=== PATIENT | male | born 1945 | race Caucasian/White ===

== ENCOUNTER 2016-11-11 13:13 | Inpatient (IN) | payer MEDICARE, MEDICAID ==
[~2016-11-11] VITALS: Ht 172.7 cm; Wt 65.9 kg
[~2016-11-11 13:13] MED LIST: DOXY100T PO; GLYB1TAB51; METF-324
[2016-11-11 13:33] VITALS: BP 157/82; PULSE 97; RESP 18; TEMP 98.1; O2SAT 97
--- NOTE | 2016-11-11 13:37 | PD ---
HPI Chief Complaint: sob Time Seen by Provider: 13:23 Travel History International Travel<30 days: No Contact w/Intl Traveler<30days: No History of Present Illness HPI Patient is a 71-year-old male with history of diabetes currently taking metformin and glipizide, who presents to emergency room with EMS from [facility] urgent care for evaluation of possible pneumonia and hyperglycemia. Patient reports that for the past 1.5 weeks, he has not been feeling well. Reports that he has had a productive cough, congestion, wheezing, fevers and reports that he has been feeling overall weak. Patient reports that he is a diabetic, reports that he has not been taking his medications as he ran out of his scripts. Patient was told that he had to follow-up with his primary care doctor for repeat blood work prior to having his prescriptions renewed, reports that he has not taken his glipizide or metformin for the past 7 days. Patient denies any recent travels, denies any sick contacts. Patient reports that he went to the urgent care center today and his heart rate was noted to be 153, patient was sent to the emergency room via a EVAC for treatment of suspected pneumonia. As per patient's blood sugar, EMS reports that patient's blood sugar was "too high to result" on their glucometer. Patient reports that he does not check his glucometer normally PFS Past Medical History Diabetes: Yes Diminished Hearing: No Diverticulitis: Yes Kidney Stones: Yes Past Surgical History Abdominal Surgery: Yes (colectomy) Social History Alcohol Use: No Tobacco Use: No Substance Use: No Allergies-Medications (Allergen,Severity, Reaction): Coded Allergies: No Known Allergies (Verified , 11/11/16) Reported Meds & Prescriptions Reported Meds & Active Scripts Active Reported Glyburide 5 Mg Tab 5 Mg PO BID Take with meals at the same time each day Metformin (Metformin HCl) 1,000 Mg Tab 1,000 Mg PO BIDPC With meals Review of Systems General / Constitutional: Positive: Fever, Chills Eyes: No: Visual changes HENT: No: Headaches Cardiovascular: No: Chest Pain or Discomfort Respiratory: Positive: Cough, No: Shortness of Breath Gastrointestinal: No: Abdominal Pain Genitourinary: No: Dysuria Musculoskeletal: No: Pain Skin: No Rash Neurologic: Positive: Weakness Psychiatric: No: Depression Endocrine: No: Polydipsia Hematologic/Lymphatic: No: Easy Bruising Physical Exam Narrative GENERAL: Mild distress SKIN: Focused skin assessment warm/dry. HEAD: Atraumatic. Normocephalic. EYES: Pupils equal and round. No scleral icterus. No injection or drainage. ENT: No nasal bleeding or discharge. Mucous membranes pink and moist. NECK: Trachea midline. No JVD. CARDIOVASCULAR: Regular rate and rhythm. No murmur appreciated. RESPIRATORY: No accessory muscle use. Patient with scattered wheezing on exam GASTROINTESTINAL: Abdomen soft, non-tender, nondistended. Hepatic and splenic margins not palpable. MUSCULOSKELETAL: No obvious deformities. No clubbing. No cyanosis. No edema. NEUROLOGICAL: Awake and alert. No obvious cranial nerve deficits. Motor grossly within normal limits. Normal speech. PSYCHIATRIC: Appropriate mood and affect; insight and judgment normal. Data Data Last Documented VS Vital Signs Date Time Temp Pulse Resp B/P Pulse Ox O2 Delivery O2 Flow Rate FiO2 11/11/16 13:42 95 11/11/16 13:38 97 18 Room Air 11/11/16 13:33 98.1 157/82 Orders Complete Blood Count With Diff (11/11/16 13:24) Comprehensive Metabolic Panel (11/11/16 13:24) Prothrombin Time / Inr (Pt) (11/11/16 13:24) Act Partial Throm Time (Ptt) (11/11/16 13:24) Lactic Acid Sepsis Protocol (11/11/16 13:24) Magnesium (Mg) (11/11/16 13:24) Lipase (11/11/16 13:24) Ckmb (Isoenzyme) Profile (11/11/16 13:24) Troponin I (11/11/16 13:24) Urinalysis - C+S If Indicated (11/11/16 13:24) Influenzae A/B Antigen (11/11/16 13:24) Blood Culture (11/11/16 13:24) Chest, Single Ap (11/11/16 13:24) Blood Glucose (11/11/16 13:24) Ecg Monitoring (11/11/16 13:24) Iv Access Insert/Monitor (11/11/16 13:24) Oximetry (11/11/16 13:24) Oxygen Administration (11/11/16 13:24) Beta Hydroxybutyrate (Acetone) (11/11/16 13:24) Arterial Blood Gas (Abg) (11/11/16 13:24) Albuterol-Ipratropium Neb (Duoneb Neb) (11/11/16 13:30) Electrocardiogram (11/11/16 13:24) Blood Glucose (11/11/16 13:50) Piperacil-Tazo 3.375 Gm Premix (Zosyn 3. (11/11/16 15:15) Vancomycin Inj (Vancomycin Inj) (11/11/16 15:15) Sodium Chlor 0.9% 1000 Ml Inj (Ns 1000 M (11/11/16 15:15) Insulin Human Regular Inj (Novolin R Inj (11/11/16 15:15) Sodium Chlor 0.9% 1000 Ml Inj (Ns 1000 M (11/11/16 15:15) Sodium Chlor 0.9% 1000 Ml Inj (Ns 1000 M (11/11/16 15:15) Ct Pulmonary Angiogram (11/11/16 15:16) Sputum Af[employer] Culture And Stain (11/11/16 15:20) Labs Laboratory Tests Test 11/11/16 11/11/16 11/11/16 13:40 14:00 14:23 White Blood Count 25.3 TH/MM3 Red Blood Count 4.39 MIL/MM3 Hemoglobin 12.2 GM/DL Hematocrit 38.0 % Mean Corpuscular Volume 86.5 FL Mean Corpuscular Hemoglobin 27.7 PG Mean Corpuscular Hemoglobin 32.0 % Concent Red Cell Distribution Width 14.9 % Platelet Count 369 TH/MM3 Mean Platelet Volume 10.5 FL Neutrophils (%) (Auto) 85.2 % Lymphocytes (%) (Auto) 8.3 % Monocytes (%) (Auto) 6.0 % Eosinophils (%) (Auto) 0.1 % Basophils (%) (Auto) 0.4 % Neutrophils # (Auto) 21.6 TH/MM3 Lymphocytes # (Auto) 2.1 TH/MM3 Monocytes # (Auto) 1.5 TH/MM3 Eosinophils # (Auto) 0.0 TH/MM3 Basophils # (Auto) 0.1 TH/MM3 CBC Comment DIFF FINAL Differential Comment Urine Color LIGHT-YELLOW Urine Turbidity CLEAR Urine pH 6.0 Urine Specific [place]cas 1.030 Urine Protein TRACE mg/dL Urine Glucose (UA) 1000 mg/dL Urine Ketones 10 mg/dL Urine Occult Blood TRACE Urine Nitrite NEG Urine Bilirubin NEG Urine Urobilinogen LESS THAN 2.0 MG/DL Urine Leukocyte Esterase NEG Urine RBC 1 /hpf Urine WBC 1 /hpf Microscopic Urinalysis Comment CATH-CULT NOT IND Sodium Level 130 MEQ/L Potassium Level 4.3 MEQ/L Chloride Level 94 MEQ/L Carbon Dioxide Level 26.1 MEQ/L Anion Gap 10 MEQ/L Blood Urea Nitrogen 25 MG/DL Creatinine 1.22 MG/DL Estimat Glomerular Filtration 59 ML/MIN Rate Random Glucose 636 MG/DL Lactic Acid Level 3.0 mmol/L Calcium Level 9.0 MG/DL Magnesium Level 1.6 MG/DL Total Bilirubin 0.6 MG/DL Aspartate Amino Transf 42 U/L (AST/SGOT) Alanine Aminotransferase 65 U/L (ALT/SGPT) Alkaline Phosphatase 103 U/L Total Creatine Kinase 100 U/L Troponin I 0.02 NG/ML Total Protein 6.7 GM/DL Albumin 2.3 GM/DL Lipase 344 U/L B-Hydroxybutyrate 1.04 MMOL/L Blood Gas Puncture Site LT RADIAL Blood Gas Patient Temperature 98.6 Blood Gas HCO3 22 mmol/L Blood Gas Base Excess -0.4 mmol/L Blood Gas Oxygen Saturation 89 % Arterial Blood pH 7.52 Arterial Blood Partial 28 mmHg Pressure CO2 Arterial Blood Partial 56 mmHG Pressure O2 Arterial Blood Oxygen Content 15.0 Vol % Arterial Blood 1.3 % Carboxyhemoglobin Arterial Blood Methemoglobin 0.6 % Blood Gas Hemoglobin 12.0 G/DL Oxygen Delivery Device ROOM AIR Blood Gas Inspired Oxygen 21 % Prothrombin Time 11.6 SEC Prothromb Time International 1.0 RATIO Ratio Activated Partial 23.4 SEC Thromboplast Time MDM Medical Decision Making Medical Screen Exam Complete: Yes Emergency Medical Condition: Yes Interpretation(s) EKG at 1343: Normal sinus rhythm at 92 beats for minute, QT/QTC 345/394, no acute ST or T-wave changes Vital Signs Date Time Temp Pulse Resp B/P Pulse Ox O2 Delivery O2 Flow Rate FiO2 11/11/16 13:42 95 11/11/16 13:38 97 18 95 Room Air 11/11/16 13:33 98.1 97 18 157/82 97 Differential Diagnosis Pneumonia, influenza, acute bronchitis, diabetic hyperglycemia, electrolyte abnormality Narrative Course Patient is a 71-year-old male who presents to emergency room with complaints of not feeling well for the past 1.5 weeks. She reports that he has had increased cough, congestion, fevers and chills for the past 1.5 weeks. Patient with no recent travels or trips, no sick contacts. Patient was seen at [facility] urgent care and was sent directly to the emergency room as he had tachycardia and a "very high" blood sugar. Patient with diffuse wheezing on exam, plan to obtain x-ray chest to evaluate for pneumonia. Labs as well as blood cultures and lactic acid ordered. Patient is wheezing on exam, nebulizer treatments were ordered. We'll hold on steroids at this time as I am not sure what his blood sugar is. Patient was placed on a surveillance monitor, will continue to monitor patient. Vital Signs Date Time Temp Pulse Resp B/P Pulse Ox O2 Delivery O2 Flow Rate FiO2 11/11/16 13:42 95 11/11/16 13:38 97 18 95 Room Air 11/11/16 13:33 98.1 97 18 157/82 97 Laboratory Tests Test 11/11/16 11/11/16 11/11/16 13:40 14:00 14:23 White Blood Count 25.3 TH/MM3 (4.0-11.0) Red Blood Count 4.39 MIL/MM3 (4.50-5.90) Hemoglobin 12.2 GM/DL (13.0-17.0) Hematocrit 38.0 % (39.0-51.0) Mean Corpuscular Volume 86.5 FL (80.0-100.0) Mean Corpuscular Hemoglobin 27.7 PG (27.0-34.0) Mean Corpuscular Hemoglobin 32.0 % Concent (32.0-36.0) Red Cell Distribution Width 14.9 % (11.6-17.2) Platelet Count 369 TH/MM3 (150-450) Mean Platelet Volume 10.5 FL (7.0-11.0) Neutrophils (%) (Auto) 85.2 % (16.0-70.0) Lymphocytes (%) (Auto) 8.3 % (9.0-44.0) Monocytes (%) (Auto) 6.0 % (0.0-8.0) Eosinophils (%) (Auto) 0.1 % (0.0-4.0) Basophils (%) (Auto) 0.4 % (0.0-2.0) Neutrophils # (Auto) 21.6 TH/MM3 (1.8-7.7) Lymphocytes # (Auto) 2.1 TH/MM3 (1.0-4.8) Monocytes # (Auto) 1.5 TH/MM3 (0-0.9) Eosinophils # (Auto) 0.0 TH/MM3 (0-0.4) Basophils # (Auto) 0.1 TH/MM3 (0-0.2) CBC Comment DIFF FINAL Differential Comment Urine Color LIGHT-YELLOW (YELLW/STRAW) Urine Turbidity CLEAR (CLEAR) Urine pH 6.0 (5.0-8.5) Urine Specific [place]cas 1.030 (1.002-1.035) Urine Protein TRACE mg/dL (NEG-TRACE) Urine Glucose (UA) 1000 mg/dL (NEG) Urine Ketones 10 mg/dL (NEG) Urine Occult Blood TRACE (NEG) Urine Nitrite NEG (NEG) Urine Bilirubin NEG (NEG) Urine Urobilinogen LESS THAN 2.0 MG/DL (LESS THAN 2.0) Urine Leukocyte Esterase NEG (NEG) Urine RBC 1 /hpf (0-3) Urine WBC 1 /hpf (0-5) Microscopic Urinalysis Comment CATH-CULT NOT IND Sodium Level 130 MEQ/L (136-145) Potassium Level 4.3 MEQ/L (3.5-5.1) Chloride Level 94 MEQ/L (98-107) Carbon Dioxide Level 26.1 MEQ/L (21.0-32.0) Anion Gap 10 MEQ/L (5-15) Blood Urea Nitrogen 25 MG/DL (7-18) Creatinine 1.22 MG/DL (0.60-1.30) Estimat Glomerular Filtration 59 ML/MIN (>89) Rate Random Glucose 636 MG/DL (74-106) Lactic Acid Level 3.0 mmol/L (0.4-2.0) Calcium Level 9.0 MG/DL (8.5-10.1) Magnesium Level 1.6 MG/DL (1.5-2.5) Total Bilirubin 0.6 MG/DL (0.2-1.0) Aspartate Amino Transf 42 U/L (15-37) (AST/SGOT) Alanine Aminotransferase 65 U/L (12-78) (ALT/SGPT) Alkaline Phosphatase 103 U/L (45-117) Total Creatine Kinase 100 U/L (39-308) Troponin I 0.02 NG/ML (0.02-0.05) Total Protein 6.7 GM/DL (6.4-8.2) Albumin 2.3 GM/DL (3.4-5.0) Lipase 344 U/L (73-393) B-Hydroxybutyrate 1.04 MMOL/L (0.00-0.39) Blood Gas Puncture Site LT RADIAL Blood Gas Patient Temperature 98.6 Blood Gas HCO3 22 mmol/L (22-26) Blood Gas Base Excess -0.4 mmol/L (-2-2) Blood Gas Oxygen Saturation 89 % (90-100) Arterial Blood pH 7.52 (7.380-7.420) Arterial Blood Partial 28 mmHg (38-42) Pressure CO2 Arterial Blood Partial 56 mmHG Pressure O2 (61-120) Arterial Blood Oxygen Content 15.0 Vol % (12.0-20.0) Arterial Blood 1.3 % (0-4) Carboxyhemoglobin Arterial Blood Methemoglobin 0.6 % (0-2) Blood Gas Hemoglobin 12.0 G/DL (12.0-16.0) Oxygen Delivery Device ROOM AIR Blood Gas Inspired Oxygen 21 % Prothrombin Time 11.6 SEC (9.8-11.6) Prothromb Time International 1.0 RATIO Ratio Activated Partial 23.4 SEC Thromboplast Time (24.3-30.1) Last Impressions Chest X-Ray 11/11/16 1324 Signed Impressions: Service Date/Time: Friday, November 11, 2016 14:05 - CONCLUSION: Patchy areas of suspected consolidation or mass bilaterally as described above. The area in the left upper lobe is potentially cavitary. These areas could be further evaluated with a CT examination of the chest. Luke Dudley MD Microbiology Date/Time Procedure Status Source Growth 11/11/16 13:40 Aerobic Blood Culture Received Blood Peripheral Pending 11/11/16 13:40 Anaerobic Blood Culture Received Blood Peripheral Pending 11/11/16 13:40 Aerobic Blood Culture Received Blood Peripheral Pending 11/11/16 13:40 Anaerobic Blood Culture Received Blood Peripheral Pending X-ray of the chest shows patchy areas of consolidations or mass bilaterally, the left upper lobe is potentially cavitary. Will order CT for further evaluation of this cavitary lesion. concern as wbc 25.3, lactate 3.0 pt's bs is 636 - no anion gap, pt is a type 2 diabetic - has not been taking his dm medications for the past 7 days as he ran out of them pO2 89 on room air, pH 7.52, pO2 56 CTA ordered case reviewed with Dr Ott CTA pending and acid fast sputum pending Reviewed all my concerns with patient, patient agreeable to further workup and admission to hospital Critical Care Narrative Aggregate critical care time was 60 minutes. Time to perform other separately billable procedures was not included in the critical care time. My time did not include minutes spent treating any other patients simultaneously or on activities that did not directly contribute to the patient's treatment. The services I provided to this patient were to treat and/or prevent clinically significant deterioration that could result in: , decompensation, deterioration I provided critical care services requiring my management, as noted below: Chart data review, documentation time, medication orders and management, vital sign assessments/reviewing monitor data, ordering and reviewing lab tests, ordering and interpreting/reviewing x-rays and diagnostic studies, care of the patient and discussion of the patient with the admitting physicians. Sepsis Criteria SIRS Criteria (2 or more): Heart rate over 90 Sepsis Criteria (SIRS+source): Infect source susp/known Criteria Outcome: Meets sepsis criteria Physician Communication Physician Communication case reviewed with Dr. Ott who accepts pt to service Diagnosis Primary Impression: Sepsis Qualified Code: A41.9 - Sepsis, due to unspecified organism Additional Impressions: Pneumonia Qualified Code: J18.9 - Pneumonia of both lungs due to infectious organism, unspecified part of lung Hyperglycemia due to type 2 diabetes mellitus Hyponatremia Hypoxia Elicia Concepcion DO Nov 11, 2016 13:37
[2016-11-11] MEDS ORDERED: GLYB5TAB3 PO (13:44)
[2016-11-11] MEDS ORDERED: METF1000 PO (13:44)
[2016-11-11] MEDS: RESP: ALBUTEROL 2.5 MG/IPRATROPIUM 0.5 MG NEB (SCH) INH (13:45)
[2016-11-11 13:52] LABS: AUTOMATED NEUTROPHIL # 21.6 TH/MM3 (1.8-7.7); BASOPHIL # 0.1 TH/MM3 (0-0.2); BASOPHIL % 0.4 % (0.0-2.0); EOSINOPHIL % 0.1 % (0.0-4.0); HEMO FLAGS DIFF FINAL; LYMPH % 8.3 % (9.0-44.0); LYMPHOCYTE # 2.1 TH/MM3 (1.0-4.8); MEAN CELL VOLUME 86.5 FL (80.0-100.0); MEAN CORPUSCULAR HEMOGLOBIN 27.7 PG (27.0-34.0); NEUT % 85.2 % (16.0-70.0); PLATELET COUNT 369 TH/MM3 (150-450); RED BLOOD COUNT 4.39 MIL/MM3 (4.50-5.90); RED CELL DISTRIBUTION WIDTH 14.9 % (11.6-17.2); WHITE BLOOD COUNT 25.3 TH/MM3 (4.0-11.0)
[2016-11-11 13:54] LABS: BLOOD, URINE TRACE (NEG); GLUCOSE,URINE 1000 mg/dL (NEG); KETONE, URINE 10 mg/dL (NEG); NITRITE,URINE NEG (NEG); URINE COLOR LIGHT-YELLOW (YELLW/STRAW)
[2016-11-11 13:55] LABS: COMMENT (UR) CATH-CULT NOT IND; CULTURE IF INDICATED CATH CULTURE NOT IND
[2016-11-11 14:03] LABS: BLOOD GAS BASE EXCESS -0.4 mmol/L (-2-2); BLOOD GAS CARBOXYHEMOGLOBIN 1.3 % (0-4); BLOOD GAS HCO3 22 mmol/L (22-26); BLOOD GAS METHEMOGLOBIN 0.6 % (0-2); BLOOD GAS O2 HGB SATURATION 89 % (90-100); BLOOD GAS PCO2 28 mmHg (38-42); BLOOD GAS PO2 56 mmHG (61-120); TEMP CORR TO 98.6
[2016-11-11 14:04] LABS: CRITICAL VALUE YES; DRAW SITE LT RADIAL; FIO2 21 %; NUMBER OF ARTERIAL PUNCTURES 1; OXYGEN DEVICE ROOM AIR; STAT YES; ULNAR PULSE Y
[2016-11-11 14:17] LABS: ALKALINE PHOSPHATASE 103 U/L (45-117); ALT (GPT) 65 U/L (12-78); ANION GAP 10 MEQ/L (5-15); BETA-HYDROXYBUTYRATE 1.04 MMOL/L (0.00-0.39); BICARBONATE 26.1 MEQ/L (21.0-32.0); BLOOD UREA NITROGEN 25 MG/DL (7-18); CHLORIDE 94 MEQ/L (98-107); GLOMERULAR FILTRATION RATE 59 ML/MIN (>89); SODIUM (NA) 130 MEQ/L (136-145); TOTAL BILIRUBIN ADULT 0.6 MG/DL (0.2-1.0)
[2016-11-11 14:18] LABS: AST (GOT) 42 U/L (15-37); CREATINE KINASE 100 U/L (39-308); MAGNESIUM 1.6 MG/DL (1.5-2.5); POTASSIUM 4.3 MEQ/L (3.5-5.1)
--- NOTE | 2016-11-11 14:42 | RADRPT ---
EXAM DATE/TIME: 11/11/2016 14:05 [facility] COMPARISON: No previous studies available for comparison. INDICATIONS : Congestion and shortness of breath. MEDICAL HISTORY : None. SURGICAL HISTORY : None. ENCOUNTER: Initial ACUITY: 1 week PAIN SCORE: 4/10 LOCATION: Left chest FINDINGS: Heart size normal. There is some mild patchy density in the left upper lung and at the right lower l obe. The left upper lobe changes appear potentially cavitary. There also appears to be a small area of consolidation at the lateral left mid lung. There is a possible nodule seen at the right upper l bakari. The lungs do appear hyperinflated. A significant effusion is not seen. CONCLUSION: Patchy areas of suspected consolidation or mass bilaterally as described above. The area in the left upper lobe is potentially cavitary. These areas could be further evaluated with a CT examination of the chest. Luke Dudley MD on November 11, 2016 at 14:32 Board Certified Radiologist. This report was verified electronically.
[2016-11-11 14:44] LABS: APTT (PATIENT) 23.4 SEC (24.3-30.1); PROTHROMBIN TIME - PATIENT 11.6 SEC (9.8-11.6)
[2016-11-11] MEDS ORDERED: VANCOMYCIN INJ 1,000 MG in SODIUM CHLOR 0.9% 250 ML INJ 250 ML IV ONE (15:15)
[2016-11-11] MEDS ORDERED: SODIUM CHLOR 0.9% 1000 ML INJ 1,000 ML IV ONE ×3 (15:15)
[2016-11-11] MEDS ORDERED: INSULIN HUMAN REGULAR 1,000 UNITS/10 ML VIAL SQ ONE (15:15)
[2016-11-11] MEDS ORDERED: PIPERACIL-TAZO 3.375 GM PREMIX 50 ML IV ONE (15:15)
[2016-11-11] MEDS ORDERED: SENNOSIDES 8.6 MG TAB PO PRN (15:30)
[2016-11-11] MEDS ORDERED: BISACODYL 10 MG SUPP RECTAL PRN (15:30)
[2016-11-11] MEDS ORDERED: ONDANSETRON HCL 4 MG/2 ML VIAL IVP PRN (15:30)
[2016-11-11] MEDS ORDERED: GLUCAGON 1 MG/ML VIAL OTHER PRN (15:30)
[2016-11-11] MEDS ORDERED: DEXTROSE 50% IN WATER 50 ML VIAL(D50) IV PUSH PRN ×2 (15:30)
[2016-11-11] MEDS ORDERED: SODIUM CHLORIDE 0.9% FLUSH 10 ML FLUSH IV FLUSH PRN (15:30)
[2016-11-11] MEDS ORDERED: MAGNESIUM HYDROXIDE SUSP 30 ML CUP PO PRN (15:30)
[2016-11-11] MEDS ORDERED: NALOXONE HCL 0.4 MG/ML AMP IV PRN (15:30)
[2016-11-11 15:46] LABS: LACTIC ACID GHOST NOT REPORTABLE
[2016-11-11] MEDS: SODIUM CHLOR 0.9% 1000 ML INJ 1,000 ML IV SCH (16:00)
[2016-11-11] MEDS ORDERED: IOHEXOL 350 MG/ML 10 ML VIAL (for RAD DIAG) IV ONE (16:10)
[2016-11-11] MEDS: INSULIN DETEMIR 100 UNITS/ML VIAL SQ SCH ×2 (16:34→21:24)
--- NOTE | 2016-11-11 16:50 | RADRPT ---
EXAM DATE/TIME: 11/11/2016 15:51 [facility] COMPARISON: No previous studies available for comparison. INDICATIONS : Short of breath. IV CONTRAST: 74 cc Omnipaque 350 (iohexol) IV RADIATION DOSE: 12.46 CTDIvol (mGy) MEDICAL HISTORY : Diabetes mellitus type 2. SURGICAL HISTORY : Cholecystectomy. ENCOUNTER: Initial ACUITY: 1 day PAIN SCALE: 2/10 LOCATION: chest TECHNIQUE: Volumetric scanning of the chest was performed using a pulmonary embolism protocol MIP images were re constructed. Using automated exposure control and adjustment of the mA and/or kV according to patien t size, radiation dose was kept as low as reasonably achievable to obtain optimal diagnostic quality images. FINDINGS: PULMONARY ARTERIES: No filling defects are seen in the pulmonary arteries through the segmental level. LUNGS: There are multiple masslike infiltrates involving all segments of both lungs having different sizes, the largest is lower medial right lung measuring 3.6 cm. There are 2 opacities in the posterior left upper lung which contains some central gas, possibly necrosis; the larger of the 2 left upper lung m asses measures 2.8 cm. There also some patchy areas of acinar infiltrate in the lower lungs. PLEURAE: There is no pleural thickening or pleural effusion. MEDIASTINUM: Several enlarged mediastinal nodes including subcarinal (1.4 cm), AP window (1.9 cm), and precarinal (2.0 cm). There is also soft tissue mass in the right hilar region measuring up to 2 cm which does n ot narrow the adjacent vessels. CONCLUSION: 1. The study is negative for pulmonary embolism. 2. Numerous varying size irregular shaped masslike opacities throughout both lungs, middle mediastina l adenopathy, and right hilar adenopathy. Two of the masslike opacities in the left upper lung demons trate some central gas suggesting possible necrosis. The distribution of the pulmonary abnormalities suggest a hematogenous spread pattern. Differential considerations include neoplasm, septic emboli, and related to inhalational chemical exposure. Errol Glass MD on November 11, 2016 at 16:41 Board Certified Radiologist. This report was verified electronically.
[2016-11-11] MEDS: INSULIN ASPART SUPPLEMENTAL SCALE SQ SCH ×2 (16:56→21:00)
[2016-11-11] MEDS: HEPARIN SODIUM - SQ 10,000 UNITS/ML VIAL SQ SCH (17:00)
--- NOTE | 2016-11-11 17:04 | MH ---
cc: AMAURI BAILEY MD DATE OF ADMISSION 11/11/2016 DATE OF 1945 CHIEF COMPLAINT Shortness of breath, polydipsia, polyuria, polyphagia. Travel in the last 30 days, none. HISTORY OF THE PRESENT ILLNESS This is a pleasant 71-year-old white male who had been in his usual state of health up until approximately a week to a week and a half ago. 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 Before his illness he worked approximately 60 hours that week and the week before he worked approximately 80 hours. He had an acute onset of decreased energy with cough and weakness. The patient notes that he was having copious amounts of sputum which was brown in color mixed with some cream color and yellow mixed with cream color. The patient was unable to sleep secondary to his coughing and his productive sputum. The patient is a known diabetic and was due to see his primary care physician and get his medications refilled. The patient was at home sick and unable to go to the doctor's office, therefore, he was not given any renewal on his prescriptions until blood work was drawn. The patient finally went to the urgent care today, was seen to be tachycardic around 153 and was sent straight to the emergency room for a possible pneumonia. The patient is alert and oriented and a good historian, and was trying to get over his acute onset of respiratory illness but was unable to shake it off. Now the patient has symptoms of polyuria, polydipsia, polyphagia. Blood sugar initially was too high for the machine over at urgent care. First blood sugar via the lab was 636. Lactic acid was 3. The patient denies any chest pain. Denies any headache. He has had fever, congestion, cough and wheezing. In the emergency room the patient was initially placed on ECG monitoring. Labs were drawn. He was connected to oxygen. Was checked for flu A and B and was given hydration with a bolus of sodium chloride. The patient was also given a dose of vancomycin and Zosyn IV and 6 units of Regular insulin times one dose. PAST MEDICAL HISTORY Includes: 1. Diabetes type 2. Usually takes oral hypoglycemics. 2. Diverticulitis. 3. Kidney stones. 4. Gastroesophageal reflux disease. PAST SURGICAL HISTORY Colon perforation with colectomy done. ALLERGIES None known. MEDICATIONS 1. Glyburide 5 milligrams p.o. twice a day. 2. Metformin 1000 milligrams p.o. twice a day after meals or with meals. SOCIAL HISTORY The patient is . Quit smoking cigarettes 20-30 years ago. Currently no alcohol, quit drinking multiple years ago. He does enjoy occasional marijuana. He lives alone in his own house. REVIEW OF SYSTEMS A 12 point review was obtained. Positives noted are cough with copious brown and yellow sputum. Insomnia. Shortness of breath. Decreased energy. Weakness. Malaise. Congestion. Fever. Polydipsia. Polyuria. Polyphagia. And any other positives mentioned in the history of present illness. Other systems negative or unremarkable. PHYSICAL EXAMINATION VITAL SIGNS: Temperature is 98.1, pulse 97, respiratory rheumatoid arthritis te 18, blood pressure 157/82. Pulse oximetry 97-95% on room air. GENERAL: Slim, well-nourished white male looks younger than his stated age. Resting on the stretcher. He is a good historian. Alert and oriented. HEENT: Atraumatic. Normocephalic. Pupils equal, round, reactive to light and accommodation at 2. Mucous membranes are dry. [place]. No scleral icterus. NECK: Supple. CARDIOVASCULAR: S1-S2. regular rhythm. No murmurs, rubs, or gallops audible. He has no edema and his pulses are intact. LUNGS: He has bibasilar rales and decreased breath sounds throughout his posterior lobes with special attention to the left upper lobe. He has rhonchi throughout his upper prakash. ABDOMEN: Flat. Soft and nontender. Nondistended. Active bowel sounds audible. MUSCULOSKELETAL: Moves his extremities with purpose. He has equal hand test tube maker and can overcome resistance. He has no clubbing. No cyanosis. No deformity. NEUROLOGIC: He is alert and oriented, a good historian. No obvious cranial nerves deficits. Speech is clear and normal. PSYCHIATRIC: Appropriate mood and affect. Insight and judgment normal. LABORATORY DATA Diagnostic data, sodium 130, potassium 4.3, chloride 94, carbon dioxide 26.1, anion gap 10, BUN 25, creatinine 1.22. GFR 59. Random glucose 636. Lactic acid 3. Calcium is 9. Magnesium 1.6. Total bilirubin 0.6. AST 42, ALT 55, alkaline phosphatase 103. Total creatine kinase 100. Troponin 0.02. Total protein 6.7. Albumin 2.3. Lipase 344. WBC 25.3, RBC 4.39, hemoglobin 12.2, hematocrit 38, platelet count 369. Other abnormals on his diff show a neutrophil percentage although 85.2, lymphocytes 8.3. PT INR is 1.0. Urine shows light clear urine, pH is 6. Specific gravity is 1.030. Trace of protein. Urine glucose is 1000. Ketones are 10. Trace of occult blood. Negative for nitrites, bilirubin and leukocyte esterase. Urobilinogen is less than 2. Culture is not indicated. Toxicology screen shows B-hydroxy butyrate 1.04. Blood gas is bicarbonate 22, base excess 0.4. O2 saturation 89. PH of 7.52, PCO2 28, PO2 56 on room air. IMAGING Show chest x-ray with patchy areas of suspicion consolidation or mass bilateral. The area in the left upper lobe is potentially cavitary. These areas need to be further evaluated with CT examination of the chest. ASSESSMENT AND PLAN 1. Lactic acid sepsis with probable pneumonia with leukocytosis. 2. Type 2 diabetes mellitus. Labile, uncontrolled. 3. Hypoxia with respiratory insufficiency. 4. Hyponatremia. 5. Anemia. 6. Mild protein calorie malnutrition. 7. Possible TB, rule out. Our plan is to admit inpatient status. The patient will be placed on vital signs at least every four hours depending on his needs. Activity will be out of bed only with help. An 1800 calorie ADA diet. Adequate gentle hydration IV. The patient will be on Accu-Cheks before meals and bedtime and 0300 at least the first 24 hours to monitor blood sugars. We are going to start him on 10 units of Levemir insulin subcutaneous every 12 hours and sliding scale insulin until blood sugars are within normal range. The patient will have as needed medications for bowel regimen, nausea, vomiting, deep venous thrombosis prophylaxis with heparin. Peptic ulcer disease prophylaxis with Pepcid. The patient will be on IV antibiotics which have already been initiated in the emergency room vancomycin and Zosyn. DuoNeb, O2 therapy. The patient will be placed in isolation pending CT scan of his chest to rule out tuberculosis. We will monitor his labs in the morning. The patient is a full code, full aggressive care and we will follow. Dictated by: CAMILLE Dinh MD TAMARA Perez /3:53 PM /4:18 PM `
--- NOTE | 2016-11-11 18:51 | HP.UPD ---
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 7 days he has been feeling very unwell with cough, wheezing, producing white brown mucus, weight loss of 5 pounds, but no fever. He had some trouble getting his diabetes medications refilled. He came into the emergency department at [facility] today. His arrival heart rate was 150 and a blood sugar of 636 but without any acidosis. He received 2 L of IV fluids. Lactic acid was 3. Chest CT showed bilateral masslike opacities with mediastinal lymphadenopathy, right hilar lymphadenopathy, left upper lung masslike opacities with central gas/necrosis. He denies any rash. Denies any bleeding. He was seen by the undersigned in room 506 and the intensive care unit. He was started on empiric antibiotics including Zosyn and vancomycin. He was started on insulin. Infectious disease and oncology consultation has been requested. Sedimentation rate and her p- ANCA were ordered in addition to sputum culture including AFB. He is on droplet isolation. Full history and physical to follow. Rashi Multani MD Nov 11, 2016 18:47
[2016-11-11] MEDS ORDERED: Vancomycin Consult Pharmacy 1 EA OTHER SCH (19:00)
[2016-11-11 20:00] VITALS: BP 136/64; PULSE 81; RESP 20; TEMP 98.9; O2SAT 97
[2016-11-11] MEDS: PIPERACIL-TAZO 3.375 GM PREMIX 50 ML IV SCH (21:21)
[2016-11-11] MEDS: SODIUM CHLORIDE 0.9% FLUSH 10 ML FLUSH IV FLUSH SCH (21:22)
[2016-11-11] MEDS: FAMOTIDINE 20 MG TAB PO SCH (21:23)
[2016-11-11] MEDS ORDERED: VANCOMYCIN 1,000 MG/NS 250 ML IV ONE ×2 (21:30)
[2016-11-11 22:00] VITALS: PULSE 70
[2016-11-11] MEDS ORDERED: CHLORHEXIDINE GLUCONATE 2 % 1 PACK (2 CLOTHS)(extra cloths) TOPICAL PRN (23:00)
[2016-11-11 23:59] LABS: BICARBONATE 26.4 MEQ/L (21.0-32.0); POTASSIUM 3.8 MEQ/L (3.5-5.1)
[2016-11-12] VITALS (13 sets, daily range): BP systolic 123–163; BP diastolic 52–79; PULSE 65–80; RESP 17–22; TEMP 98.1–98.6; O2SAT 97–100
[2016-11-12] MEDS: PIPERACIL-TAZO 3.375 GM PREMIX 50 ML IV SCH ×4 (03:49→19:52)
[2016-11-12] MEDS: CHLORHEXIDINE GLUCONATE 2 % 1 PACK (2 CLOTHS)(taper/protocol) TOPICAL SCH (03:51)
[2016-11-12] MEDS: SODIUM CHLOR 0.9% 1000 ML INJ 1,000 ML IV SCH ×3 (03:51→21:03)
[2016-11-12] MEDS: HEPARIN SODIUM - SQ 10,000 UNITS/ML VIAL SQ SCH ×2 (05:37→16:43)
[2016-11-12 05:43] LABS: BASOPHIL % 0.2 % (0.0-2.0); EOSINOPHIL # 0.2 TH/MM3 (0-0.4); EOSINOPHIL % 1.1 % (0.0-4.0); HEMATOCRIT 30.6 % (39.0-51.0); HEMO FLAGS DIFF FINAL; LYMPH % 10.5 % (9.0-44.0); LYMPHOCYTE # 2.2 TH/MM3 (1.0-4.8); MEAN CORPUSCULAR HEMOGLOBIN 28.5 PG (27.0-34.0); MEAN CORPUSCULAR HGB CONC 33.9 % (32.0-36.0); MONO % 7.3 % (0.0-8.0); NEUT % 80.9 % (16.0-70.0); PLATELET COUNT 313 TH/MM3 (150-450); RED BLOOD COUNT 3.65 MIL/MM3 (4.50-5.90); RED CELL DISTRIBUTION WIDTH 14.6 % (11.6-17.2)
[2016-11-12 06:18] LABS: BICARBONATE 29.2 MEQ/L (21.0-32.0); POTASSIUM 3.5 MEQ/L (3.5-5.1)
[2016-11-12] MEDS: INSULIN ASPART SUPPLEMENTAL SCALE SQ SCH ×4 (06:26→19:52)
[2016-11-12] MEDS: SODIUM CHLORIDE 0.9% FLUSH 10 ML FLUSH IV FLUSH SCH ×2 (09:00→19:54)
[2016-11-12] MEDS: INSULIN DETEMIR 100 UNITS/ML VIAL SQ SCH ×2 (09:05→19:53)
[2016-11-12] MEDS: FAMOTIDINE 20 MG TAB PO SCH ×2 (09:05→19:53)
[2016-11-12] MEDS: HYDROcodone 5 MG/HOMATROPINE 1.5 MG SYRUP 5 ML CUP PO PRN (12:49)
--- NOTE | 2016-11-12 14:16 | HHI.PR ---
Subjective Subjective Remarks Resting in bed Mild low volume shortness of breath noted Family in Insomnia Hyperglycemia resolved (Ghada Bojorquez) Review of Systems Constitutional Constitutional: Fatigue, Weakness (Ghada Bojorquez) Pulmonary Respiratory: Coughing (and occasional), Shortness of Breath (mild low volumes) Pulmonary Remarks Right-sided chest pain with inspiration (Ghada Bojorquez) Hematologic/Lymphatic Heme/Lymph: Enlarged Nodes (possible chest) (Ghada Bojorquez) Musculoskeletal MS: Weakness (Ghada Bojorquez) Psychiatric Psychiatric: Normal Mood (Ghada Bojorquez) Vitals/Results Intake & Output 11/11/16 11/11/16 11/12/16 15:00 23:00 07:00 Intake Total 575 ml 886 ml Output Total 300 ml 400 ml Balance 275 ml 486 ml Intake Oral 60 ml 120 ml IV Total 515 ml 766 ml Output Urine Total 300 ml 400 ml # Bowel Movements 0 0 Vital Signs Vital Signs Date Time Temp Pulse Resp B/P Pulse Ox O2 Delivery O2 Flow Rate FiO2 11/12/16 12:51 97 Nasal Cannula 2.00 11/12/16 12:00 68 11/12/16 10:00 71 11/12/16 08:00 77 11/12/16 06:00 66 11/12/16 04:00 98.1 75 20 147/70 97 11/12/16 04:00 75 11/12/16 02:00 69 11/12/16 00:00 98.2 68 22 141/67 98 11/12/16 00:00 68 11/11/16 22:00 70 11/11/16 20:00 81 11/11/16 20:00 98.9 81 20 136/64 97 (Ghada Bojorquez) CBC/BMP: 11/12/16 0505 11/12/16 0505 Lab Results Laboratory Tests Test 11/11/16 11/11/16 11/11/16 11/12/16 14:23 17:00 23:22 05:05 Prothrombin Time 11.6 SEC Prothromb Time International 1.0 RATIO Ratio Activated Partial 23.4 SEC Thromboplast Time Nasal Screen MRSA (PCR) MRSA NOT DETECTED Sodium Level 135 MEQ/L 140 MEQ/L Potassium Level 3.8 MEQ/L 3.5 MEQ/L Chloride Level 101 MEQ/L 104 MEQ/L Carbon Dioxide Level 26.4 MEQ/L 29.2 MEQ/L Anion Gap 8 MEQ/L 7 MEQ/L Blood Urea Nitrogen 22 MG/DL 18 MG/DL Creatinine 1.00 MG/DL 0.82 MG/DL Estimat Glomerular Filtration 74 ML/MIN 93 ML/MIN Rate Random Glucose 243 MG/DL 76 MG/DL Calcium Level 8.2 MG/DL 8.4 MG/DL Lactic Acid Level 2.2 mmol/L White Blood Count 21.0 TH/MM3 Red Blood Count 3.65 MIL/MM3 Hemoglobin 10.4 GM/DL Hematocrit 30.6 % Mean Corpuscular Volume 84.0 FL Mean Corpuscular Hemoglobin 28.5 PG Mean Corpuscular Hemoglobin 33.9 % Concent Red Cell Distribution Width 14.6 % Platelet Count 313 TH/MM3 Mean Platelet Volume 10.0 FL Neutrophils (%) (Auto) 80.9 % Lymphocytes (%) (Auto) 10.5 % Monocytes (%) (Auto) 7.3 % Eosinophils (%) (Auto) 1.1 % Basophils (%) (Auto) 0.2 % Neutrophils # (Auto) 17.0 TH/MM3 Lymphocytes # (Auto) 2.2 TH/MM3 Monocytes # (Auto) 1.5 TH/MM3 Eosinophils # (Auto) 0.2 TH/MM3 Basophils # (Auto) 0.0 TH/MM3 CBC Comment DIFF FINAL Differential Comment Microbiology Microbiology 11/11/16 Acid Fast Stain, Received Pending 11/11/16 Mycobacterial Culture, Received Pending Imaging Remarks Last Impressions CT Angiography 11/11/16 1516 Signed Impressions: Service Date/Time: Friday, November 11, 2016 15:51 - CONCLUSION: 1. The study is negative for pulmonary embolism. 2. Numerous varying size irregular shaped masslike opacities throughout both lungs, middle mediastinal adenopathy, and right hilar adenopathy. Two of the masslike opacities in the left upper lung demonstrate some central gas suggesting possible necrosis. The distribution of the pulmonary abnormalities suggest a hematogenous spread pattern. Differential considerations include neoplasm, septic emboli, and related to inhalational chemical exposure. Errol Glass MD Chest X-Ray 11/11/16 1324 Signed Impressions: Service Date/Time: Friday, November 11, 2016 14:05 - CONCLUSION: Patchy areas of suspected consolidation or mass bilaterally as described above. The area in the left upper lobe is potentially cavitary. These areas could be further evaluated with a CT examination of the chest. Luke Dudley MD Current Medications Administered Medications Medications (Trade) Dose Ordered Sig/Jaden Route PRN Reason Start Time Stop Time Status Last Admin Dose Admin Sodium Chloride (NS 1000 ml Inj) 1,000 ml @ 100 mls/hr Q10H IV 11/11/16 16:00 11/12/16 12:00 Sodium Chloride (NS Flush) 2 ml BID IV FLUSH 11/11/16 21:00 11/12/16 09:00 Heparin Sodium (Porcine) (Heparin Inj) 5,000 units Q12H SQ 11/11/16 17:00 11/12/16 05:37 Insulin Detemir (Levemir Inj) 10 units Q12HR SQ 11/11/16 16:00 11/12/16 09:05 Famotidine 20 mg 20 mg BID PO 11/11/16 21:00 11/12/16 09:05 Piperacillin Sod/ Tazobactam Sod (Zosyn 3.375 Gm Premix) 50 ml @ 100 mls/hr Q6H IV 11/11/16 21:00 11/12/16 09:05 Chlorhexidine Gluconate (Chlorhexidine 2% Cloth) 3 pack DAILY@04 TOPICAL 11/12/16 04:00 11/16/16 04:01 11/12/16 03:51 Hydrocodone Bit/ Homatropine Methylb (Hycodan Liq) 5 ml Q4H PRN PO cough 11/12/16 12:00 11/12/16 12:49 (Ghada Bojorquez) Physical Exam General General Appearance: Well Developed, Well Nourished, Anxious (Ghada Bojorquez) Eyes Eye Exam: Pupils Equal, Pupils Reactive (Ghada Bojorquez) Ears & Nose Ears & Nose Exam: Nasal Mucosa [place] (Ghada BojorquezP) Throat Throat Exam: Oral Mucosa [place] & Moist (Ghada Bojorquez) Neck Neck Exam: Neck Supple, Trachea Midline ([place],Ghada M. CLOTH PACKER) Pulmonary Resp Exam: Sputum (Brown tinge), Decreased Bases, Diminished Breath Sounds ( Ghada Bojorquez M. CLOTH PACKER) Cardiology CV Exam: Normal Sinus Rhythm (heart rate 60s) (Ghada Bojorquez. CLOTH PACKER) Gastrointestinal/Abdomen GI Exam: Soft, Non-Tender, Bowel Sounds Present GI Remarks Appetite good ([place],Ghada M. CLOTH PACKER) Genitourinary Exam: Clear Urine (Ghada Bojorquez. CLOTH PACKER) Musculoskeletal MS Exam: Joints Intact ([place],Susan M. CLOTH PACKER) Integumentary Skin Exam: Clear, Warm, Dry, Intact, Normal Turgor ([place],Susan M. CLOTH PACKER) Extremeties Extremities Exam: No Edema (Ghada Bojorquez M. CLOTH PACKER) Neurologic Neuro Exam: Awake, Oriented, Moving All Extremities (Ghada Bojorquez M. CLOTH PACKER) Psychiatric Psych Exam: Appropriate Responses (Ghada Bojorquez. CLOTH PACKER) VTE Prophylaxis VTE Prophylaxis Meds: Heparin (BrigantineGhada. CLOTH PACKER) PUD Prophylasis PUD Remarks Pepcid (Ghada Bojorquez M. CLOTH PACKER) Assessment/Plan Assessment/Plan 1. Lactic acid sepsis with probable pneumonia with leukocytosis. 2. Type 2 diabetes mellitus. Labile, uncontrolled. 3. Hypoxia with respiratory insufficiency. 4. Hyponatremia. 5. Anemia. 6. Mild protein calorie malnutrition. 7. Possible TB, rule out. 8. R/O lung cancer 9. [place] Vital signs reviewed normal ranges for the most part. Pulses decreased in the 60s sometimes. Borderline hypertension, labile Hydralazine ordered when necessary for systolic BP greater than 180 solid greater than 95 Labs reviewed glucose now 76, Anemia, stable 10.4 Leukocytosis decreased to 21, IV antibiotics Hypocalcemia, monitor Diabetes type 2 with hyperglycemia labile Now normal range, maintaining diabetic diet patient with good appetite 100% Accu-Cheks with sliding scale, Mild protein calorie malnutrition, encouraged calories and protein, Glucerna with meals Bowel regimen, DVT prophylaxis PUD prophylaxis Abnormal CT scan and chest x-ray. ID consult pending, appreciate input Patient is in respiratory isolation, for possible TB. Need expert opinion and plan a care Also will need further workup for possible lung mass/cancer Hypoxia, resolved patient is wearing oxygen per nasal cannula ,sats greater than 92 Chest pain right-sided with inspiration, pain management Duo nebs added Insomnia, patient states not sleeping due to aching shortness of breath and pain. management per Dr. Wallace (Ghada Bojorquez) Assessment/Plan pt is seen & examined chart reviewed d/w PT d/w Ghada agree w above s see Orders will f/u (Cheryl Wallace MD) Ghada Bojorquez Nov 12, 2016 14:16 Cheryl Wallace MD Nov 12, 2016 15:33
--- NOTE | 2016-11-12 14:18 | EKG ---
Date Performed: 11/11/2016 Time Performed: 13:43:58 PTAGE: 71 years EKG: Sinus rhythm NORMAL ECG NO PREVIOUS TRACING DOCTOR: Luis Mensah Interpretating Date/Time 11/12/2016 14:17:08
[2016-11-12] MEDS: AZITHROMYCIN INJ 500 MG in SODIUM CHLOR 0.9% 250 ML INJ 250 ML IV SCH (16:44)
[2016-11-12] MEDS: hydrALAZINE HCL 20 MG/ML VIAL IV PUSH PRN (16:46)
--- NOTE | 2016-11-12 17:16 | MB ---
cc: MILANA LÓPEZ MD DATE OF CONSULTATION 11/12/2016 REQUESTING PHYSICIAN [place]. REASON FOR CONSULTATION Atypical chest x-ray. Pneumonia versus mets. HISTORY OF THE PRESENT ILLNESS This is a 71-year-old white male who presents to emergency department with shortness of breath. The patient reports that he became very short of breath while working approximately 5 days ago and he quit working and went home. He said he was feeling poorly since then and he continued to cough brown sputum. He denies hemoptysis. He also felt very weak. He notes that he was having chest pain in the left upper chest which he feels was associated with much coughing. The only attributable contacts to anybody who has been sick is with a colleague at work. The patient notes that he has smoked a joint with his colleague on the day before he started feeling sick. He denies headache and nausea or vomiting but states that he has had sweats. He states that appetite has been good throughout. He was evaluated in the emergency department yesterday and his heart rate was 97 and his white count was elevated at 25.3. He was noted to have renal insufficiency with creatinine of 1.22 and lactic acid level of 3.0. The patient was admitted to the hospital and chest x-ray was performed. Chest x-ray shows patchy areas of suspect consolidation or mass bilaterally. The areas in the left upper lobe is noted to be potentially cavitary. There is also possible nodule seen at the right upper lung. His CT scan of the chest was performed and it shows numerous varying in size irregular shape mass-like opacities throughout both lungs and also middle mediastinal adenopathy and right hilar adenopathy. There are also two mass-like opacities in the left upper lung which demonstrate some central gas suggesting possible necrosis. The distribution of the pulmonary mass has suggested hematogenous spread pattern. 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 He is afebrile. Blood culture no growth in one day. Sputum AFB is pending. PAST MEDICAL HISTORY 1. Diabetes mellitus. 2. History of diverticulitis. 3. Right shoulder surgery. 4. History of colectomy. 5. Gastroesophageal reflux disease. ALLERGIES NO KNOWN DRUG ALLERGIES. MEDICATIONS 1. Piperacillin / Tazobactam. 2. Pepcid. 3. Levemir. 4. Sliding scale insulin. SOCIAL HISTORY No tobacco use. No alcohol use. Occasional marijuana use. The patient denies IV drug use. FAMILY HISTORY The patient's mother of old age. The patient's father of an aneurysm. REVIEW OF SYSTEMS GENERAL: No fever or chills. HEAD, EYES, EARS, NOSE, AND THROAT: No visual blurring or diplopia. The patient has classes. No difficulty swallowing or soreness of the throat. No nasal bleeding. NECK: Without swelling or pain. CARDIOVASCULAR: No palpitation or chest pain. RESPIRATORY: Significant for cough. GASTROINTESTINAL: No nausea, vomiting, abdominal pain or diarrhea. HEMATOLOGIC: No easy bruising or bleeding. ENDOCRINE: No polyuria. Increased thirst. SKIN: No skin rash or itching. NEUROLOGIC: No problems with coordination or dizziness. PSYCHIATRIC: No problems with depression. PHYSICAL EXAMINATION GENERAL: This is a slender male who is in no acute distress. He is awake and alert and oriented. VITAL SIGNS: Include temperature of 98.1, BP 163/79, respirations 20, heart rate 55. HEENT: Head atraumatic. Extraocular movements grossly intact, pupils reactive to light without icterus. Oropharynx no visible lesions. No thrush. NECK: Supple. No adenopathy. LUNGS: Clear to auscultation. Slight basilar rhonchi. HEART: Regular rate and rhythm without murmurs, rubs or gallops. ABDOMEN: Bowel sounds present, soft, nontender. RECTAL: Not performed. EXTREMITIES: No clubbing or cyanosis or edema. NEUROLOGIC: Nonfocal. SKIN: No rash. PSYCHIATRIC: The patient calm and cooperative. LABORATORY DATA WBC 21.0. Platelets 313, hemoglobin 10.0, 80% neutrophils. Creatinine 0.82, BUN 18, sodium 140. IMPRESSION 1. Pneumonia. Possible atypical pneumonia versus tuberculosis versus septic pulmonary lesions. 2. Rule out malignancy. 3. Leukocytosis suggesting possible infection as cause of pulmonary lesions. RECOMMENDATIONS 1. Continue piperacillin / Tazobactam. 2. Obtain sputum for routine culture. 3. Follow sputum AFB culture. 4. Continue vancomycin. 5. Monitor sputum AFB culture. 6. Monitor temperature and white blood cell count. 7. Add azithromycin. 8. Obtain Legionella and Mycoplasma serology. 9. Continue to monitor the patient in isolation. Thank you for this consultation. I will monitor the patient's progress and will make further recommendations on followup if necessary. Milana López MD FD/KK /2:42 PM /4:44 PM
[2016-11-12] MEDS: RESP: ALBUTEROL 2.5 MG/IPRATROPIUM 0.5 MG NEB (SCH) NEB (20:22)
[2016-11-12] MEDS ORDERED: TEMAZEPAM 15 MG CAP PO PRN (21:00)
[2016-11-12] MEDS ORDERED: VANCOMYCIN INJ 1,500 MG in SODIUM CHLORID 0.9% 500 ML INJ 500 ML IV SCH (22:00)
[2016-11-13] VITALS (19 sets, daily range): BP systolic 95–171; BP diastolic 58–95; PULSE 67–150; RESP 18–33; TEMP 97.6–98.7; O2SAT 92–98
[2016-11-13] MEDS ORDERED: MAGNESIUM SULFATE 1 GM PREMIX 100 ML IV ONE (01:30)
[2016-11-13] MEDS: POTASSIUM CHLOR 20 MEQ PREMIX 100 ML IV SCH ×2 (01:34→04:04)
[2016-11-13] MEDS: DILTIAZEM INJ 125 MG in SODIUM CHLORIDE 0.9% INJ 100 ML IV SCH (03:10)
[2016-11-13] MEDS: PIPERACIL-TAZO 3.375 GM PREMIX 50 ML IV SCH ×4 (03:31→20:54)
[2016-11-13] MEDS: CHLORHEXIDINE GLUCONATE 2 % 1 PACK (2 CLOTHS)(taper/protocol) TOPICAL SCH (04:00)
[2016-11-13] MEDS: HEPARIN SODIUM - SQ 10,000 UNITS/ML VIAL SQ SCH ×2 (04:05→16:29)
[2016-11-13] MEDS: INSULIN ASPART SUPPLEMENTAL SCALE SQ SCH ×4 (06:47→21:11)
[2016-11-13] MEDS: RESP: ALBUTEROL 2.5 MG/IPRATROPIUM 0.5 MG NEB (SCH) NEB ×3 (08:00→19:07)
[2016-11-13] MEDS: INSULIN DETEMIR 100 UNITS/ML VIAL SQ SCH ×2 (08:28→20:53)
[2016-11-13] MEDS: FAMOTIDINE 20 MG TAB PO SCH ×2 (08:29→20:53)
[2016-11-13] MEDS: SODIUM CHLOR 0.9% 1000 ML INJ 1,000 ML IV SCH ×2 (08:29→18:21)
[2016-11-13] MEDS: SODIUM CHLORIDE 0.9% FLUSH 10 ML FLUSH IV FLUSH SCH ×2 (08:29→20:55)
[2016-11-13] MEDS: HYDROcodone 5 MG/HOMATROPINE 1.5 MG SYRUP 5 ML CUP PO PRN ×3 (09:13→18:59)
--- NOTE | 2016-11-13 12:37 | HHI.IDPN ---
Note Infectious Disease Note Patient says he feels 100% better than yesterday. Notes he broke in profuse sweat last night. Slept all night which he was not able to do in recent days. Afebrile. Broke out in profuse coughing while I was examining him. No SHUKLA, chills. On O2 via nasal canula, 3L. PAST MEDICAL HISTORY 1. Diabetes mellitus. 2. History of diverticulitis. 3. Right shoulder surgery. 4. History of colectomy. 5. Gastroesophageal reflux disease. ALLERGIES NO KNOWN DRUG ALLERGIES. MEDICATIONS Current Medications Medications (Trade) Dose Ordered Sig/Jaden Route PRN Reason Start Time Stop Time Status Last Admin Dose Admin Sodium Chloride (NS 1000 ml Inj) 1,000 ml @ 100 mls/hr Q10H IV 11/11/16 16:00 11/13/16 08:29 Sodium Chloride (NS Flush) 2 ml UNSCH PRN IV FLUSH FLUSH AFTER USING IV ACCESS 11/11/16 15:30 Sodium Chloride (NS Flush) 2 ml BID IV FLUSH 11/11/16 21:00 11/13/16 08:29 Ondansetron HCl (Zofran Inj) 4 mg Q6H PRN IVP NAUSEA OR VOMITING 11/11/16 15:30 Bisacodyl (Dulcolax Supp) 10 mg DAILY PRN RECTAL CONSTIPATION 11/11/16 15:30 Magnesium Hydroxide (Milk Of Magntravis Liq) 30 ml Q12H PRN PO CONSTIPATION 11/11/16 15:30 Sennosides (Senokot) 17.2 mg Q12H PRN PO CONSTIPATION 11/11/16 15:30 Heparin Sodium (Porcine) (Heparin Inj) 5,000 units Q12H SQ 11/11/16 17:00 11/13/16 04:05 Naloxone HCl (Narcan Inj) 0.4 mg UNSCH PRN IV SEE LABEL COMMENTS 11/11/16 15:30 Insulin Detemir (Levemir Inj) 10 units Q12HR SQ 11/11/16 16:00 11/13/16 08:28 Dextrose (D50w (Vial) Inj) 25 ml UNSCH PRN IV PUSH HYPOGLYCEMIA-SEE COMMENTS 11/11/16 15:30 Glucagon (Glucagon Inj) 1 mg UNSCH PRN OTHER HYPOGLYCEMIA-SEE COMMENTS 11/11/16 15:30 Famotidine 20 mg 20 mg BID PO 11/11/16 21:00 11/13/16 08:29 Piperacillin Sod/ Tazobactam Sod 50 ml @ 100 mls/hr Q6H IV 11/11/16 21:00 11/13/16 08:29 Pharmacy Profile Note (Vancomycin Consult Pharmacy) 0 ml @ 0 mls/hr UNSCH OTHER 11/11/16 19:00 Miscellaneous Information Patient in critical care unit? Ass... Q361D .XX 11/11/16 23:00 Chlorhexidine Gluconate (Chlorhexidine 2% Cloth) 3 pack DAILY@04 TOPICAL 11/12/16 04:00 11/16/16 04:01 11/13/16 04:00 Chlorhexidine Gluconate (Chlorhexidine 2% Cloth) 3 pack UNSCH PRN TOPICAL HYGIENIC CARE 11/11/16 23:00 11/16/16 22:58 Hydrocodone Bit/ Homatropine Methylb (Hycodan Liq) 5 ml Q4H PRN PO cough 11/12/16 12:00 11/13/16 09:13 Hydralazine HCl 20 mg 20 mg Q4H PRN IV PUSH SBP>180, DBP>95 11/12/16 14:15 11/12/16 16:46 Azithromycin/ Sodium Chloride (Zithromax Inj/ NS 250 ml Inj) 250 ml @ 250 mls/hr Q24H IV 11/12/16 15:00 11/12/16 16:44 Temazepam 15 mg 15 mg HS PRN PO sleep 11/12/16 21:00 11/12/16 20:04 Diltiazem HCl 125 mg/Sodium Chloride 125 ml @ 0 mls/hr TITRATE IV 11/13/16 01:30 11/13/16 03:10 Vancomycin HCl/ Sodium Chloride (Vancomycin Inj/ NS 250 ml Inj) 262.5 ml @ 250 mls/hr Q12H IV 11/13/16 14:00 Miscellaneous Information SPECIFIC LAB TO BE DRAWN:VANCOMYCIN TROUGH DATE TO... ONCE ONCE .XX 11/14/16 13:45 11/14/16 13:46 SOCIAL HISTORY No tobacco use. No alcohol use. Occasional marijuana use. The patient denies IV drug use. FAMILY HISTORY The patient's mother of old age. The patient's father of an aneurysm. OBJECTIVE: Vital Signs Date Time Temp Pulse Resp B/P Pulse Ox O2 Delivery O2 Flow Rate FiO2 11/13/16 11:21 96 11/13/16 06:03 68 26 153/72 11/13/16 06:00 73 11/13/16 04:00 73 11/13/16 04:00 97.6 73 20 148/69 96 11/13/16 02:03 139 30 135/95 97 11/13/16 02:00 139 11/13/16 01:48 150 33 155/95 94 11/13/16 01:33 129 30 95/58 95 11/13/16 01:18 98.3 136 24 95/58 92 11/13/16 00:00 98.4 67 20 128/60 94 11/13/16 00:00 67 11/12/16 22:00 72 11/12/16 20:22 98 Nasal Cannula 1.50 11/12/16 20:00 80 11/12/16 20:00 98.2 80 20 123/52 98 11/12/16 18:00 74 11/12/16 16:00 70 11/12/16 16:00 98.2 65 17 159/79 100 11/12/16 12:51 97 Nasal Cannula 2.00 11/12/16 11/12/16 11/13/16 15:00 23:00 07:00 Intake Total 1161 ml 657 ml 745 ml Output Total 760 ml 300 ml 700 ml Balance 401 ml 357 ml 45 ml Intake Oral 200 ml IV Total 1161 ml 457 ml 745 ml Output Urine Total 760 ml 300 ml 700 ml Laboratory Tests Test 11/11/16 11/12/16 13:40 05:05 White Blood Count 25.3 TH/MM3 21.0 TH/MM3 Red Blood Count 4.39 MIL/MM3 3.65 MIL/MM3 Hemoglobin 12.2 GM/DL 10.4 GM/DL Hematocrit 38.0 % 30.6 % Mean Corpuscular Volume 86.5 FL 84.0 FL Mean Corpuscular Hemoglobin 27.7 PG 28.5 PG Mean Corpuscular Hemoglobin 32.0 % 33.9 % Concent Red Cell Distribution Width 14.9 % 14.6 % Platelet Count 369 TH/MM3 313 TH/MM3 Mean Platelet Volume 10.5 FL 10.0 FL Neutrophils (%) (Auto) 85.2 % 80.9 % Lymphocytes (%) (Auto) 8.3 % 10.5 % Monocytes (%) (Auto) 6.0 % 7.3 % Eosinophils (%) (Auto) 0.1 % 1.1 % Basophils (%) (Auto) 0.4 % 0.2 % Neutrophils # (Auto) 21.6 TH/MM3 17.0 TH/MM3 Lymphocytes # (Auto) 2.1 TH/MM3 2.2 TH/MM3 Monocytes # (Auto) 1.5 TH/MM3 1.5 TH/MM3 Eosinophils # (Auto) 0.0 TH/MM3 0.2 TH/MM3 Basophils # (Auto) 0.1 TH/MM3 0.0 TH/MM3 CBC Comment DIFF FINAL DIFF FINAL Differential Comment Erythrocyte Sedimentation Rate 67 mm/hr Laboratory Tests Test 11/11/16 11/11/16 11/12/16 13:40 23:22 05:05 Sodium Level 130 MEQ/L 135 MEQ/L 140 MEQ/L Potassium Level 4.3 MEQ/L 3.8 MEQ/L 3.5 MEQ/L Chloride Level 94 MEQ/L 101 MEQ/L 104 MEQ/L Carbon Dioxide Level 26.1 MEQ/L 26.4 MEQ/L 29.2 MEQ/L Anion Gap 10 MEQ/L 8 MEQ/L 7 MEQ/L Blood Urea Nitrogen 25 MG/DL 22 MG/DL 18 MG/DL Creatinine 1.22 MG/DL 1.00 MG/DL 0.82 MG/DL Estimat Glomerular Filtration 59 ML/MIN 74 ML/MIN 93 ML/MIN Rate Random Glucose 636 MG/DL 243 MG/DL 76 MG/DL Lactic Acid Level 3.0 mmol/L 2.2 mmol/L Calcium Level 9.0 MG/DL 8.2 MG/DL 8.4 MG/DL Magnesium Level 1.6 MG/DL Total Bilirubin 0.6 MG/DL Aspartate Amino Transf 42 U/L (AST/SGOT) Alanine Aminotransferase 65 U/L (ALT/SGPT) Alkaline Phosphatase 103 U/L Total Creatine Kinase 100 U/L Troponin I 0.02 NG/ML Total Protein 6.7 GM/DL Albumin 2.3 GM/DL Lipase 344 U/L Microbiology Date/Time Procedure Status Source Growth 11/11/16 13:40 Aerobic Blood Culture - Preliminary Resulted Blood Peripheral NO GROWTH IN 2 DAYS 11/11/16 13:40 Anaerobic Blood Culture - Preliminary Resulted Blood Peripheral NO GROWTH IN 2 DAYS 11/11/16 13:40 Aerobic Blood Culture - Preliminary Resulted Blood Peripheral NO GROWTH IN 2 DAYS 11/11/16 13:40 Anaerobic Blood Culture - Preliminary Resulted Blood Peripheral NO GROWTH IN 2 DAYS 11/11/16 16:48 Acid Fast Stain - Final Resulted Sputum Expectorated Sputum NO ACID FAST BACILLI SEEN 11/11/16 16:48 Mycobacterial Culture Resulted Sputum Expectorated Sputum Pending 11/12/16 18:25 Gram Stain - Final Resulted Sputum Expectorated Sputum 11/12/16 18:25 Sputum Culture Resulted Sputum Expectorated Sputum Pending 11/12/16 20:00 Legionella Antigen - Final Complete Urine Clean Catch PRESUMPTIVE NEGATIVE FOR LEGIONELLA P... IMAGING: CT Angiography 11/11/16 1516 Signed Impressions: Service Date/Time: Friday, November 11, 2016 15:51 - CONCLUSION: 1. The study is negative for pulmonary embolism. 2. Numerous varying size irregular shaped masslike opacities throughout both lungs, middle mediastinal adenopathy, and right hilar adenopathy. Two of the masslike opacities in the left upper lung demonstrate some central gas suggesting possible necrosis. The distribution of the pulmonary abnormalities suggest a hematogenous spread pattern. Differential considerations include neoplasm, septic emboli, and related to inhalational chemical exposure. Errol Glass MD Chest X-Ray 11/11/16 1324 Signed Impressions: Service Date/Time: Friday, November 11, 2016 14:05 - CONCLUSION: Patchy areas of suspected consolidation or mass bilaterally as described above. The area in the left upper lobe is potentially cavitary. These areas could be further evaluated with a CT examination of the chest. Luke Dudley MD PHYSICAL EXAMINATION GENERAL: No acute distress. He is awake and alert and oriented. HEENT: Head atraumatic. Extraocular movements grossly intact, pupils reactive to light without icterus. Oropharynx no visible lesions. No thrush. NECK: Supple. No adenopathy. LUNGS: Clear to auscultation. Slight basilar rhonchi. HEART: Regular rate and rhythm without murmurs, rubs or gallops. ABDOMEN: Bowel sounds present, soft, nontender. EXTREMITIES: No clubbing or cyanosis or edema. NEUROLOGIC: Nonfocal. SKIN: No rash. PSYCHIATRIC: Calm and cooperative. IMPRESSION 1. Pneumonia. Possible atypical pneumonia versus tuberculosis versus septic pulmonary lesions. 2. Rule out malignancy. 3. Leukocytosis suggesting possible infection as cause of pulmonary lesions. RECOMMENDATIONS 1. Continue piperacillin / Tazobactam. 2. Monitor sputum for routine culture. 3. Obtain 2 more sputum AFB smear/culture. 4. Continue vancomycin. 5. PPD skin test. 6. Monitor temperature and white blood cell count. 7. Continue Azithromycin. 8. Monitor Mycoplasma serology. 9. Continue to monitor the patient in isolation. Jeffery Granados MD Nov 13, 2016 12:37
[2016-11-13] MEDS: VANCOMYCIN INJ 1,250 MG in SODIUM CHLOR 0.9% 250 ML INJ 250 ML IV SCH (13:22)
[2016-11-13] MEDS: AZITHROMYCIN INJ 500 MG in SODIUM CHLOR 0.9% 250 ML INJ 250 ML IV SCH (16:28)
--- NOTE | 2016-11-13 16:36 | MB ---
cc: RICH BROOKS MD DATE OF CONSULTATION: 11/13/2016 REASON FOR CONSULTATION: HISTORY OF PRESENT ILLNESS: Mr. Slaughter is a 71 year-old white male who presented with shortness of breath. He has had increased cough productive of yellow and brown sputum, generalized weakness and fatigue. He was hyperglycemic. He was in sinus rhythm but had an episode of atrial fibrillation which spontaneously converted to sinus rhythm. He is now back in sinus rhythm. He denies any chest pain, no shortness of breath, no peripheral edema. PAST MEDICAL HISTORY, PAST SURGICAL HISTORY: 1. Positive for type 2 diabetes mellitus. 2. Diverticulitis. 3. Cholelithiasis 4. Gastroesophageal reflux disease 5. Colectomy for colon perforation. MEDICATIONS: 1. Glyburide 2. Metformin ALLERGIES: NONE. SOCIAL HISTORY: The patient does not smoke. He does not drink alcohol. He lives alone. He is a . 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 FAMILY HISTORY: Negative for heart disease. REVIEW OF SYSTEMS: Otherwise negative. PHYSICAL EXAMINATION: VITAL SIGNS: Blood pressure 153/72, pulse 68 regular. HEENT: Negative, 2+ carotid upstrokes. No bruits. LUNGS: Decreased breath sounds. Bilateral crackles and few rhonchi. HEART: Regular with no murmur, gallop or rub. ABDOMEN: Soft. No bruits. EXTREMITIES: Without edema. 2+ distal pulses. NEUROLOGIC: Grossly nonfocal. EKG: EKG was reviewed, and showed normal sinus rhythm, with normal axis and intervals. LABORATORY DATA: Hemoglobin 10.4, potassium 3.5, creatinine 0.8, glucose 636, 243, and 76. DIAGNOSIS: 1. Paroxysmal atrial fibrillation 2. Sepsis. 3. Pneumonia. 4. Diabetes mellitus, uncontrolled. 5. Hypoxia. 6. Anemia. 7. History of lung cancer. DISPOSITION: Mr. Slaughter had an episode of atrial fibrillation but is back in sinus rhythm. We will continue his current program. He will be monitored on telemetry. I recommend to continue antibiotics. If he has recurrence of his atrial fibrillation, we will consider antiarrhythmic therapy with sotalol. I will follow him for cardiology while hospitalized. Rich Brooks MD OQ/CHAYA /3:10 PM /3:29 PM KAMRAN
--- NOTE | 2016-11-13 16:36 | EC ---
Study Study Date:11/13/2016 STUDY CONCLUSIONS SUMMARY - Left ventricle: The cavity size was normal. Wall thickness was normal. Systolic function was normal. The estimated ejection fraction was in the range of 55% to 60%. Wall motion was normal; there were no regional wall motion abnormalities. - Aortic valve: Valve area: 2.46cm^2 (Vmax). - Mitral valve: Mild regurgitation. - Pulmonary arteries: PA peak pressure: 32mm Hg (S). - Pericardium, extracardiac: A trivial pericardial effusion was identified. If LV function is below 40, please consider prescribing an ACEI or ARB or document rationale for non-use. PROCEDURE DATA STUDY STATUS: Elective. Procedure: Transthoracic echocardiography. Image quality was fair. Scanning was performed from the parasternal, apical, and subcostal acoustic windows. Study completion: The patient tolerated the procedure well. Transthoracic echocardiography. M-mode, complete 2D, complete spectral Doppler, and color Doppler. Height: Height: 68in. Weight: Weight: 134.7lb. Body mass index: BMI: 20.5kg/m^2. Body surface area: BSA: 1.73m^2. Patient status: Inpatient. CARDIAC ANATOMY LEFT VENTRICLE: The cavity size was normal. Wall thickness was normal. Systolic function was normal. The estimated ejection fraction was in the range of 55% to 60%. Wall motion was normal; there were no regional wall motion abnormalities. AORTIC VALVE: Trileaflet; normal thickness leaflets. Doppler: Transvalvular velocity was within the normal range. There was no stenosis. No regurgitation. Valve area: 2.46cm^2 (Vmax). Indexed valve area: 1.42cm^2/m^2 (Vmax). AORTA: Aortic root: The aortic root was normal in size. MITRAL VALVE: Structurally normal valve. Doppler: Transvalvular velocity was within the normal range. There was no evidence for stenosis. Mild regurgitation. Peak gradient: 3mm Hg (D). LEFT ATRIUM: The atrium was normal in size. RIGHT VENTRICLE: The cavity size was normal. Wall thickness was normal. PULMONIC VALVE: Doppler: Transvalvular velocity was within the normal range. There was no evidence for stenosis. No regurgitation. TRICUSPID VALVE: Structurally normal valve. Doppler: Transvalvular velocity was within the normal range. No regurgitation. PULMONARY ARTERY: The main pulmonary artery was normal-sized. Systolic pressure was within the normal range. RIGHT ATRIUM: The atrium was normal in size. PERICARDIUM: A trivial pericardial effusion was identified. SYSTEMIC VEINS: Inferior vena cava: The vessel was normal in size. Patient weight: 134.7lb _Ejection fraction:_ 65-75% _Fractional shortening:_ 32% up to 5Kg 5-11.5Kg 11.6-22.9Kg 23-45Kg 45-57Kg Aortic Root 7-13 <17 13-22 17-27 17-27 LA diam 6-13 <23 24-38 33-47 37-40 RVID 10-17 7-15 7-15 7-18 8-17 LVIDd 12-22 <32 24-38 33-47 37-40 LVPW 2-4 3-6 5-7 6-8 7-8 IVS 2-4 3-6 5-7 6-8 7-8 BASIC MEASUREMENTS ADULT NORMAL Left ventricle LV internal dimension, ED, chordal 50.6 mm 43-52 level, PLAX LV internal dimension, ES, chordal *39.5 mm 23-38 level, PLAX Fractional shortening, chordal level, *22 % >29 PLAX LV posterior wall thickness, ED 10.7 mm IVS/LVPW ratio, ED 0.98 <1.3 Ventricular septum Septal thickness, ED 10.5 mm Aortic valve Leaflet separation 22 mm 15-26 Right ventricle RV internal dimension, ED, PLAX 27.3 mm 19-38 BASIC MEASUREMENTS ADULT NORMAL Aortic valve Leaflet separation 22 mm 15-26 Aorta Root diameter, ED 35 mm 20-37 Left atrium Anterior-posterior dimension, ES 28 mm 19-40 Anterior-posterior dimension index, ES 1.62 cm/m^2 <2.2 LA/aortic root ratio 0.8 DOPPLER MEASUREMENTS ADULT NORMAL Main pulmonary artery Pressure, S *32 mm Hg =30 Aortic valve Peak velocity, S 121 cm/s Valve area, Vmax 2.46 cm^2 Valve area index, Vmax 1.42 cm^2/m^2 Mitral valve Peak E-wave velocity 81.9 cm/s Peak A-wave velocity 57.3 cm/s Deceleration time *148 ms 150-230 Peak gradient, D 3 mm Hg Peak E/A ratio 1.4 Maximal regurgitant velocity 392 cm/s Tricuspid valve Regurgitant peak velocity 261 cm/s Peak RV-RA gradient, S 27 mm Hg Systemic veins Estimated CVP 10 mm Hg Right ventricle RV pressure, S *37 mm Hg <30 Pulmonic valve Peak velocity, S 107 cm/s LEGEND: Mean values are shown as u=mean value. Asterisk (*) gil values outside specified normal range. Prepared and signed by Jenn Smiley [id number]
--- NOTE | 2016-11-13 16:55 | HHI.PR ---
Subjective History of Present Illness Feels much better Less cough. less sputum No fever or chills No N/V appetite is ok No abd pain No diarrhea offers no other c/o Review of Systems Constitutional Constitutional: Fatigue, Weakness Pulmonary Respiratory: Coughing (and occasional), Shortness of Breath (mild low volumes) Hematologic/Lymphatic Heme/Lymph: Enlarged Nodes (possible chest) Musculoskeletal MS: Weakness Psychiatric Psychiatric: Normal Mood Vitals/Results Intake & Output 11/12/16 11/12/16 11/13/16 15:00 23:00 07:00 Intake Total 1161 ml 657 ml 745 ml Output Total 760 ml 300 ml 700 ml Balance 401 ml 357 ml 45 ml Intake Oral 200 ml IV Total 1161 ml 457 ml 745 ml Output Urine Total 760 ml 300 ml 700 ml Vital Signs Vital Signs Date Time Temp Pulse Resp B/P Pulse Ox O2 Delivery O2 Flow Rate FiO2 11/13/16 11:21 96 11/13/16 06:03 68 26 153/72 11/13/16 06:00 73 11/13/16 04:00 73 11/13/16 04:00 97.6 73 20 148/69 96 11/13/16 02:03 139 30 135/95 97 11/13/16 02:00 139 11/13/16 01:48 150 33 155/95 94 11/13/16 01:33 129 30 95/58 95 11/13/16 01:18 98.3 136 24 95/58 92 11/13/16 00:00 98.4 67 20 128/60 94 11/13/16 00:00 67 11/12/16 22:00 72 11/12/16 20:22 98 Nasal Cannula 1.50 11/12/16 20:00 80 11/12/16 20:00 98.2 80 20 123/52 98 11/12/16 18:00 74 CBC/BMP: 11/12/16 0505 11/12/16 0505 Microbiology Microbiology 11/12/16 Gram Stain - Final, Resulted 11/12/16 Sputum Culture - Preliminary, Resulted LIGHT GROWTH NORMAL RESPIRATORY JORI... 11/12/16 Legionella Antigen - Final, Complete PRESUMPTIVE NEGATIVE FOR LEGIONELLA P... 11/13/16 Acid Fast Stain, Received Pending 11/13/16 Mycobacterial Culture, Received Pending 11/13/16 Acid Fast Stain, Received Pending 11/13/16 Mycobacterial Culture, Received Pending Physical Exam General General Appearance: Well Developed, Well Nourished, No Acute Distress, Comfortable Eyes Eye Exam: Pupils Equal, Sclera White, Extraocular Movement Intact Ears & Nose Ears & Nose Exam: Nasal Mucosa [place] Throat Throat Exam: Oral Mucosa [place] & Moist Neck Neck Exam: Neck Supple, Trachea Midline Pulmonary Resp Exam: Clear Bilaterally, Breath Sounds Equal Cardiology CV Exam: Regular, Normal Sinus Rhythm (heart rate 60s) Gastrointestinal/Abdomen GI Exam: Soft, Non-Tender, Bowel Sounds Present Genitourinary Exam: Clear Urine Hematologic/Lymphatic Heme Exam: Enlarged Nodes (possible chest) Integumentary Skin Exam: Clear, Warm, Dry, Intact Extremeties Extremities Exam: No Edema Neurologic Neuro Exam: Alert, Awake, Oriented, Speech Clear, Moving All Extremities Psychiatric Psych Exam: Appropriate Responses VTE Prophylaxis VTE Prophylaxis Meds: Heparin PUD Prophylasis PUD Prophylaxis: Protonix Assessment/Plan Assessment/Plan Assessment/Plan 1. Lactic acid sepsis with probable pneumonia with leukocytosis. 2. Type 2 diabetes mellitus. Labile, uncontrolled. 3. Hypoxia with respiratory insufficiency. 4. Hyponatremia. 5. Anemia. 6. Mild protein calorie malnutrition. 7. Possible TB, rule out. 8. R/O lung cancer 9. Insomia Empiric IV aBX , Zosyn/Vanco IVF ID input appreciated sputum gm stain neg, c/s [p] sputum for AFB neg x 1 ID f/u antitussive analgesic prn Diabetes type 2 with hyperglycemia labile Now normal range, maintaining diabetic diet patient with good appetite 100% Accu-Cheks with sliding scale, Mild protein calorie malnutrition, encouraged calories and protein, Glucerna with meals Bowel regimen, DVT prophylaxis PUD prophylaxis cont current tx will f/u Cheryl Wallace MD Nov 13, 2016 16:55 Also will need further workup for possible lung mass/cancer Hypoxia, resolved patient is wearing oxygen per nasal cannula ,sats greater than 92 Chest pain right-sided with inspiration, pain management Duo nebs added Insomnia, patient states not sleeping due to aching shortness of breath and pain. management per Cheryl Rankin MD Nov 13, 2016 16:55
[2016-11-13] MEDS ORDERED: CANDIDA ALBICANS 0.1 ML SYRINGE I-DERMAL ONE (18:00)
[2016-11-13] MEDS ORDERED: TUBERCULIN, PPD 5 UNITS/0.1 ML SYRINGE I-DERMAL ONE (18:00)
[2016-11-13] MEDS ORDERED: PHARMACY ORDERED LAB ONE (21:45)
[2016-11-14] VITALS (15 sets, daily range): BP systolic 64–184; BP diastolic 66–86; PULSE 66–148; RESP 18–26; TEMP 97.5–98.8; O2SAT 93–100
[2016-11-14] MEDS: HYDROcodone 5 MG/HOMATROPINE 1.5 MG SYRUP 5 ML CUP PO PRN ×2 (00:26→08:03)
[2016-11-14] MEDS: SODIUM CHLOR 0.9% 1000 ML INJ 1,000 ML IV SCH ×3 (00:26→21:47)
[2016-11-14] MEDS: VANCOMYCIN INJ 1,250 MG in SODIUM CHLOR 0.9% 250 ML INJ 250 ML IV SCH ×2 (00:33→13:19)
[2016-11-14] MEDS: PIPERACIL-TAZO 3.375 GM PREMIX 50 ML IV SCH ×4 (03:33→21:29)
[2016-11-14] MEDS: CHLORHEXIDINE GLUCONATE 2 % 1 PACK (2 CLOTHS)(taper/protocol) TOPICAL SCH (03:33)
[2016-11-14] MEDS: HEPARIN SODIUM - SQ 10,000 UNITS/ML VIAL SQ SCH ×2 (04:36→16:43)
[2016-11-14] MEDS: INSULIN ASPART SUPPLEMENTAL SCALE SQ SCH ×4 (07:00→21:30)
[2016-11-14] MEDS: RESP: ALBUTEROL 2.5 MG/IPRATROPIUM 0.5 MG NEB (SCH) NEB ×3 (07:41→19:34)
[2016-11-14] MEDS: SODIUM CHLORIDE 0.9% FLUSH 10 ML FLUSH IV FLUSH SCH ×2 (08:02→21:31)
[2016-11-14] MEDS: INSULIN DETEMIR 100 UNITS/ML VIAL SQ SCH ×2 (08:03→21:29)
[2016-11-14] MEDS: FAMOTIDINE 20 MG TAB PO SCH ×2 (08:03→21:30)
[2016-11-14] MEDS: hydrALAZINE HCL 20 MG/ML VIAL IV PUSH PRN (08:03)
[2016-11-14] MEDS: DILTIAZEM INJ 125 MG in SODIUM CHLORIDE 0.9% INJ 100 ML IV SCH (09:34)
[2016-11-14 11:25] LABS: HEMATOCRIT 33.4 % (39.0-51.0); MEAN CELL VOLUME 85.3 FL (80.0-100.0); MEAN CORPUSCULAR HEMOGLOBIN 28.3 PG (27.0-34.0); MEAN CORPUSCULAR HGB CONC 33.2 % (32.0-36.0); PLATELET COUNT 375 TH/MM3 (150-450); RED BLOOD COUNT 3.92 MIL/MM3 (4.50-5.90); RED CELL DISTRIBUTION WIDTH 14.7 % (11.6-17.2); REVIEW FLAG FINAL; WHITE BLOOD COUNT 17.6 TH/MM3 (4.0-11.0)
[2016-11-14 11:47] LABS: BICARBONATE 25.8 MEQ/L (21.0-32.0); POTASSIUM 3.7 MEQ/L (3.5-5.1)
[2016-11-14] MEDS ORDERED: PHARMACY ORDERED LAB ONE (13:45)
--- NOTE | 2016-11-14 15:22 | HHI.PR ---
Subjective Subjective Remarks Resting in bed Mild low volume shortness of breath noted, but improving Insomnia, improving today patient is able to sleep longer periods of time and finally relaxing Hyperglycemia resolved Afebrile (Ghada Bojorquez) Review of Systems Constitutional Constitutional: Fatigue, Weakness Constitutional Remarks 10 point ROS done positives noted. Patient still in respiratory isolation ruling out tuberculosis (Ghada Bojorquez) Pulmonary Respiratory: Coughing (and occasional), Shortness of Breath (mild low volumes) Pulmonary Remarks Right-sided chest pain with inspiration (Ghada Bojorquez) Hematologic/Lymphatic Heme/Lymph: Enlarged Nodes (possible chest) (Ghada Bojorquez) Musculoskeletal MS: Weakness (Ghada Bojorquez) Psychiatric Psychiatric: Normal Mood (Ghada Bojorquez) Vitals/Results Intake & Output 11/13/16 11/13/16 11/14/16 15:00 23:00 07:00 Intake Total 1629 ml 1031 ml 1299 ml Output Total 800 ml 400 ml 600 ml Balance 829 ml 631 ml 699 ml Intake Oral 480 ml 300 ml 600 ml IV Total 1149 ml 731 ml 699 ml Output Urine Total 800 ml 400 ml 600 ml # Bowel Movements 1 Vital Signs Vital Signs Date Time Temp Pulse Resp B/P Pulse Ox O2 Delivery O2 Flow Rate FiO2 11/14/16 14:27 96 Nasal Cannula 2.00 11/14/16 14:00 77 11/14/16 12:00 83 11/14/16 12:00 98.3 83 24 151/69 96 11/14/16 10:00 148 11/14/16 08:00 74 11/14/16 08:00 97.5 74 20 184/86 93 11/14/16 07:43 100 11/14/16 06:00 69 11/14/16 04:00 98.8 70 20 64/ 93 11/14/16 04:00 70 11/14/16 02:00 66 11/14/16 00:00 76 11/14/16 00:00 98.5 76 18 154/70 98 11/13/16 22:00 69 11/13/16 20:00 88 11/13/16 20:00 98.7 77 18 130/69 98 11/13/16 19:07 95 11/13/16 18:00 73 11/13/16 16:00 98.5 72 22 171/78 95 11/13/16 16:00 72 (Ghada Bojorquez) CBC/BMP: 11/14/16 1107 11/14/16 1107 Lab Results Laboratory Tests Test 11/14/16 11:07 White Blood Count 17.6 TH/MM3 Red Blood Count 3.92 MIL/MM3 Hemoglobin 11.1 GM/DL Hematocrit 33.4 % Mean Corpuscular Volume 85.3 FL Mean Corpuscular Hemoglobin 28.3 PG Mean Corpuscular Hemoglobin 33.2 % Concent Red Cell Distribution Width 14.7 % Platelet Count 375 TH/MM3 Mean Platelet Volume 9.7 FL Sodium Level 140 MEQ/L Potassium Level 3.7 MEQ/L Chloride Level 106 MEQ/L Carbon Dioxide Level 25.8 MEQ/L Anion Gap 8 MEQ/L Blood Urea Nitrogen 14 MG/DL Creatinine 0.98 MG/DL Estimat Glomerular Filtration 76 ML/MIN Rate Random Glucose 171 MG/DL Calcium Level 8.7 MG/DL Mycoplasma pneumoniae IgG 2.18 index Antibody Mycoplasma pneumoniae IgM 0.16 index Antibody Microbiology Microbiology 11/13/16 Acid Fast Stain, Eliseo Batch Pending 11/13/16 Mycobacterial Culture, Eliseo Batch Pending Imaging Remarks Last Impressions CT Angiography 11/11/16 1516 Signed Impressions: Service Date/Time: Friday, November 11, 2016 15:51 - CONCLUSION: 1. The study is negative for pulmonary embolism. 2. Numerous varying size irregular shaped masslike opacities throughout both lungs, middle mediastinal adenopathy, and right hilar adenopathy. Two of the masslike opacities in the left upper lung demonstrate some central gas suggesting possible necrosis. The distribution of the pulmonary abnormalities suggest a hematogenous spread pattern. Differential considerations include neoplasm, septic emboli, and related to inhalational chemical exposure. Errol Glass MD Chest X-Ray 11/11/16 1324 Signed Impressions: Service Date/Time: Friday, November 11, 2016 14:05 - CONCLUSION: Patchy areas of suspected consolidation or mass bilaterally as described above. The area in the left upper lobe is potentially cavitary. These areas could be further evaluated with a CT examination of the chest. Luke Dudley MD Current Medications Administered Medications Medications (Trade) Dose Ordered Sig/Jaden Route PRN Reason Start Time Stop Time Status Last Admin Dose Admin Sodium Chloride (NS 1000 ml Inj) 1,000 ml @ 100 mls/hr Q10H IV 11/11/16 16:00 11/14/16 13:19 Sodium Chloride (NS Flush) 2 ml BID IV FLUSH 11/11/16 21:00 11/14/16 08:02 Heparin Sodium (Porcine) (Heparin Inj) 5,000 units Q12H SQ 11/11/16 17:00 11/14/16 16:43 Insulin Detemir (Levemir Inj) 10 units Q12HR SQ 11/11/16 16:00 11/14/16 08:03 Famotidine 20 mg 20 mg BID PO 11/11/16 21:00 11/14/16 08:03 Piperacillin Sod/ Tazobactam Sod (Zosyn 3.375 Gm Premix) 50 ml @ 100 mls/hr Q6H IV 11/11/16 21:00 11/14/16 16:42 Chlorhexidine Gluconate (Chlorhexidine 2% Cloth) 3 pack DAILY@04 TOPICAL 11/12/16 04:00 11/16/16 04:01 11/14/16 03:33 Hydrocodone Bit/ Homatropine Methylb (Hycodan Liq) 5 ml Q4H PRN PO cough 11/12/16 12:00 11/14/16 08:03 Hydralazine HCl 20 mg 20 mg Q4H PRN IV PUSH SBP>180, DBP>95 11/12/16 14:15 11/14/16 08:03 Azithromycin/ Sodium Chloride (Zithromax Inj/ NS 250 ml Inj) 250 ml @ 250 mls/hr Q24H IV 11/12/16 15:00 11/14/16 16:42 Temazepam 15 mg 15 mg HS PRN PO sleep 11/12/16 21:00 11/12/16 20:04 Diltiazem HCl 125 mg/Sodium Chloride 125 ml @ 0 mls/hr TITRATE IV 11/13/16 01:30 11/14/16 09:34 Vancomycin HCl/ Sodium Chloride (Vancomycin Inj/ NS 250 ml Inj) 262.5 ml @ 250 mls/hr Q12H IV 11/13/16 14:00 11/14/16 13:19 (Ghada Bojorquez. POLITICAL ORGANIZER) Physical Exam General General Appearance: Well Developed, Well Nourished, No Acute Distress, Comfortable (Ghada Bojorquez M. POLITICAL ORGANIZER) Eyes Eye Exam: Pupils Equal, Sclera White, Extraocular Movement Intact (Ghada Bojorquez M. POLITICAL ORGANIZER) Ears & Nose Ears & Nose Exam: Nasal Mucosa [place] (pale) (Ghada Bojorquez M. POLITICAL ORGANIZER) Throat Throat Exam: Oral Mucosa [place] & Moist (Ghada Bojorquez M. POLITICAL ORGANIZER) Neck Neck Exam: Neck Supple, Trachea Midline (RenoGhada quinteros M. POLITICAL ORGANIZER) Pulmonary Resp Exam: Clear Bilaterally, Breath Sounds Equal ([place],Susan M. POLITICAL ORGANIZER) Cardiology CV Exam: Regular, Normal Sinus Rhythm (heart rate 60s) (Ghada Bojorquez M. POLITICAL ORGANIZER) Gastrointestinal/Abdomen GI Exam: Soft, Non-Tender, Bowel Sounds Present GI Remarks Appetite good (Ghada Bojorquez M. POLITICAL ORGANIZER) Genitourinary Exam: Clear Urine (Ghada Bojorquez M. POLITICAL ORGANIZER) Hematologic/Lymphatic Heme Exam: Enlarged Nodes (possible chest) (RenoGhada quinteros M. POLITICAL ORGANIZER) Integumentary Skin Exam: Clear, Warm, Dry, Intact (Ghada Bojorquez M. POLITICAL ORGANIZER) Extremeties Extremities Exam: No Edema (Ghada Bojorquez M. POLITICAL ORGANIZER) Neurologic Neuro Exam: Alert, Awake, Oriented, Speech Clear, Moving All Extremities ( Ghada Bojorquez M. POLITICAL ORGANIZER) Psychiatric Psych Exam: Appropriate Responses (Ghada Bojorquez M. POLITICAL ORGANIZER) VTE Prophylaxis VTE Prophylaxis Meds: Heparin (Ghada Bojorquez M. POLITICAL ORGANIZER) PUD Prophylasis PUD Prophylaxis: Protonix PUD Remarks Pepcid (Ghada Bojorquez M. POLITICAL ORGANIZER) Assessment/Plan Assessment/Plan Assessment/Plan 1. Lactic acid sepsis with probable pneumonia with leukocytosis. 2. Type 2 diabetes mellitus. Labile, uncontrolled. 3. Hypoxia with respiratory insufficiency. 4. Hyponatremia. 5. Anemia. 6. Mild protein calorie malnutrition. 7. Possible TB, rule out. 8. R/O lung cancer 9. [place] Possible tuberculosis, patient still remains in respiratory isolation, initial plan is to rule out TB first, negative AFB sputum's so far, Empiric IV aBX , Zosyn/Vanco IVF ID input appreciated sputum gm stain neg, c/s [p] sputum for AFB neg x 2 ID f/u antitussive analgesic prn Leukocytosis trending down, labs reviewed, will continue to monitor Hypoxemia resolved, patient can maintain sats greater than 92 on O2 at 2 L per nasal cannula Hyponatremia, mild improvement, monitor Anemia probable due to chronic disease monitor, hemoglobin stable and improving Diabetes type 2 with hyperglycemia labile Now normal range, maintaining diabetic diet patient with good appetite 100% Accu-Cheks with sliding scale, Mild protein calorie malnutrition, encouraged calories and protein, Glucerna with meals Possible lung cancer has not been ruled out, but initial rule out needs to be TB first. Course of therapy will depend on patient's response to treatment Bowel regimen, DVT prophylaxis PUD prophylaxis cont current tx will f/u (Ghada Bojorquez) Assessment/Plan PT IS SEEN & EXAMINED D/W PT D/W GHADA AFB NEG X 2 CONT CURRENT TX WILL F/U (Cheryl Wallace MD) Ghada Bojorquez Nov 14, 2016 15:22 Cheryl Wallace MD Nov 14, 2016 16:26
[2016-11-14] MEDS: AZITHROMYCIN INJ 500 MG in SODIUM CHLOR 0.9% 250 ML INJ 250 ML IV SCH (16:42)
[2016-11-14] MEDS: SKIN TEST RESULT SCH (17:48)
--- NOTE | 2016-11-14 19:21 | PD.CARD.PN ---
Subjective Subjective Remarks No CP or SOB, ID eval in progress Objective Medications Current Medications Medications (Trade) Dose Ordered Sig/Jaden Route Start Time Stop Time Status Last Admin (NS 1000 ml Inj) 1,000 ml @ 100 mls/hr Q10H IV 11/11/16 16:00 11/14/16 13:19 (NS Flush) 2 ml UNSCH PRN IV FLUSH 11/11/16 15:30 (NS Flush) 2 ml BID IV FLUSH 11/11/16 21:00 11/14/16 08:02 (Zofran Inj) 4 mg Q6H PRN IVP 11/11/16 15:30 (Dulcolax Supp) 10 mg DAILY PRN RECTAL 11/11/16 15:30 (Milk Of Magnesia Liq) 30 ml Q12H PRN PO 11/11/16 15:30 (Senokot) 17.2 mg Q12H PRN PO 11/11/16 15:30 (Heparin Inj) 5,000 units Q12H SQ 11/11/16 17:00 11/14/16 16:43 (Narcan Inj) 0.4 mg UNSCH PRN IV 11/11/16 15:30 (Levemir Inj) 10 units Q12HR SQ 11/11/16 16:00 11/14/16 08:03 (D50w (Vial) Inj) 25 ml UNSCH PRN IV PUSH 11/11/16 15:30 (Glucagon Inj) 1 mg UNSCH PRN OTHER 11/11/16 15:30 Famotidine 20 mg 20 mg BID PO 11/11/16 21:00 11/14/16 08:03 Piperacillin Sod/ Tazobactam Sod 50 ml @ 100 mls/hr Q6H IV 11/11/16 21:00 11/14/16 16:42 (Vancomycin Consult Pharmacy) 0 ml @ 0 mls/hr UNSCH OTHER 11/11/16 19:00 Miscellaneous Information Patient in critical care unit? Ass... Q361D .XX 11/11/16 23:00 (Chlorhexidine 2% Cloth) 3 pack DAILY@04 TOPICAL 11/12/16 04:00 11/16/16 04:01 11/14/16 03:33 (Chlorhexidine 2% Cloth) 3 pack UNSCH PRN TOPICAL 11/11/16 23:00 11/16/16 22:58 (Hycodan Liq) 5 ml Q4H PRN PO 11/12/16 12:00 11/14/16 08:03 Hydralazine HCl 20 mg 20 mg Q4H PRN IV PUSH 11/12/16 14:15 11/14/16 08:03 (Zithromax Inj/ NS 250 ml Inj) 250 ml @ 250 mls/hr Q24H IV 11/12/16 15:00 11/14/16 16:42 Temazepam 15 mg 15 mg HS PRN PO 11/12/16 21:00 11/12/16 20:04 Diltiazem HCl 125 mg/Sodium Chloride 125 ml @ 0 mls/hr TITRATE IV 11/13/16 01:30 11/14/16 09:34 (Vancomycin Inj/ NS 250 ml Inj) 262.5 ml @ 250 mls/hr Q12H IV 11/13/16 14:00 11/14/16 13:19 (Skin Test Result) 1 Q24H .XX 11/14/16 18:00 11/16/16 18:01 11/14/16 17:48 Miscellaneous Information SPECIFIC LAB TO BE DRAWN:[facility]... ONCE ONCE .XX 11/15/16 01:45 11/15/16 01:46 Vital Signs / I&O Vital Signs Date Time Temp Pulse Resp B/P Pulse Ox O2 Delivery O2 Flow Rate FiO2 11/14/16 18:00 93 11/14/16 16:00 98.5 77 20 142/66 98 11/14/16 16:00 77 11/14/16 14:27 96 Nasal Cannula 2.00 11/14/16 14:00 77 11/14/16 12:00 83 11/14/16 12:00 98.3 83 24 151/69 96 11/14/16 10:00 148 11/14/16 08:00 74 11/14/16 08:00 97.5 74 20 184/86 93 11/14/16 07:43 100 11/14/16 06:00 69 11/14/16 04:00 98.8 70 20 64/ 93 11/14/16 04:00 70 11/14/16 02:00 66 11/14/16 00:00 76 11/14/16 00:00 98.5 76 18 154/70 98 11/13/16 22:00 69 11/13/16 20:00 88 11/13/16 20:00 98.7 77 18 130/69 98 I/O 11/13/16 11/13/16 11/13/16 11/14/16 11/14/16 11/14/16 07:00 15:00 23:00 07:00 15:00 23:00 Intake Total 745 ml 1629 ml 1031 ml 1299 ml 1010 ml Output Total 700 ml 800 ml 400 ml 600 ml 750 ml 500 ml Balance 45 ml 829 ml 631 ml 699 ml 260 ml -500 ml Intake Oral 480 ml 300 ml 600 ml 240 ml IV Total 745 ml 1149 ml 731 ml 699 ml 770 ml Output Urine Total 700 ml 800 ml 400 ml 600 ml 750 ml 500 ml # Bowel Movements 1 1 Physical Exam GENERAL: IN NAD SKIN: Warm and dry. HEAD: Normocephalic. EYES: No scleral icterus. No injection or drainage. NECK: Supple, trachea midline. No JVD or lymphadenopathy. CARDIOVASCULAR: Regular rate and rhythm without murmurs, gallops, or rubs. RESPIRATORY: Breath sounds equal bilaterally. No accessory muscle use. GASTROINTESTINAL: Abdomen soft, non-tender, nondistended. MUSCULOSKELETAL: No cyanosis, or edema. Laboratory Laboratory Tests Test 11/14/16 11:07 White Blood Count 17.6 TH/MM3 Red Blood Count 3.92 MIL/MM3 Hemoglobin 11.1 GM/DL Hematocrit 33.4 % Mean Corpuscular Volume 85.3 FL Mean Corpuscular Hemoglobin 28.3 PG Mean Corpuscular Hemoglobin 33.2 % Concent Red Cell Distribution Width 14.7 % Platelet Count 375 TH/MM3 Mean Platelet Volume 9.7 FL Sodium Level 140 MEQ/L Potassium Level 3.7 MEQ/L Chloride Level 106 MEQ/L Carbon Dioxide Level 25.8 MEQ/L Anion Gap 8 MEQ/L Blood Urea Nitrogen 14 MG/DL Creatinine 0.98 MG/DL Estimat Glomerular Filtration 76 ML/MIN Rate Random Glucose 171 MG/DL Calcium Level 8.7 MG/DL Mycoplasma pneumoniae IgG 2.18 index Antibody Mycoplasma pneumoniae IgM 0.16 index Antibody Imaging Last Impressions CT Angiography 11/11/16 3876 Signed Impressions: Service Date/Time: Jaylan, November 11, 2016 15:51 - CONCLUSION: 1. The study is negative for pulmonary embolism. 2. Numerous varying size irregular shaped masslike opacities throughout both lungs, middle mediastinal adenopathy, and right hilar adenopathy. Two of the masslike opacities in the left upper lung demonstrate some central gas suggesting possible necrosis. The distribution of the pulmonary abnormalities suggest a hematogenous spread pattern. Differential considerations include neoplasm, septic emboli, and related to inhalational chemical exposure. Errol Glass MD Chest X-Ray 11/11/16 1324 Signed Impressions: Service Date/Time: Friday, November 11, 2016 14:05 - CONCLUSION: Patchy areas of suspected consolidation or mass bilaterally as described above. The area in the left upper lobe is potentially cavitary. These areas could be further evaluated with a CT examination of the chest. Luke Dudley MD Assessment and Plan Problem List: (1) Atrial fibrillation (2) Hyperglycemia due to type 2 diabetes mellitus (3) Pneumonia (4) Sepsis Assessment and Plan Recurrent episodes of a fib. Will start sotalol to keep in SR. ID eval in progress. Increase activity. Problem Qualifiers (1) Pneumonia: Qualified Code: J18.9 - Pneumonia of both lungs due to infectious organism, unspecified part of lung (2) Sepsis: Qualified Code: A41.9 - Sepsis, due to unspecified organism Rich Brooks MD Nov 14, 2016 19:21
[2016-11-14] MEDS: SOTALOL HCL 80 MG TAB PO SCH (21:30)
[2016-11-15] VITALS (15 sets, daily range): BP systolic 136–185; BP diastolic 67–127; PULSE 54–82; RESP 22–34; TEMP 97.6–98.5; O2SAT 90–100
[2016-11-15] MEDS: HYDROcodone 5 MG/HOMATROPINE 1.5 MG SYRUP 5 ML CUP PO PRN (00:31)
[2016-11-15] MEDS ORDERED: PHARMACY ORDERED LAB ONE (01:45)
[2016-11-15] MEDS: VANCOMYCIN INJ 1,250 MG in SODIUM CHLOR 0.9% 250 ML INJ 250 ML IV SCH (02:00)
[2016-11-15] MEDS: PIPERACIL-TAZO 3.375 GM PREMIX 50 ML IV SCH ×4 (02:13→21:27)
[2016-11-15] MEDS: CHLORHEXIDINE GLUCONATE 2 % 1 PACK (2 CLOTHS)(taper/protocol) TOPICAL SCH (02:16)
--- NOTE | 2016-11-15 04:14 | RADRPT ---
EXAM DATE/TIME: 11/15/2016 02:33 [facility] COMPARISON: CT PULMONARY ANGIOGRAM, November 11, 2016, 15:51. CHEST SINGLE AP, November 11, 2016, 14:05. INDICATIONS : Congestion and shortness of breath MEDICAL HISTORY : None. SURGICAL HISTORY : None. ENCOUNTER: Subsequent ACUITY: 4 - 6 days PAIN SCORE: 0/10 LOCATION: Bilateral chest FINDINGS: There continues to be scattered bilateral pulmonary infiltrates throughout both lung prakash. The scat tered infiltrates are present on the prior study. There's been no significant change in the overall a ppearance of the bilateral pulmonary infiltrates. No pleural effusions. The heart size is stable. The bony structures are stable. CONCLUSION: There continues to be scattered bilateral pulmonary infiltrates. Adis Puri MD on November 15, 2016 at 4:11 Board Certified Radiologist. This report was verified electronically.
[2016-11-15] MEDS: HEPARIN SODIUM - SQ 10,000 UNITS/ML VIAL SQ SCH ×2 (06:07→16:03)
[2016-11-15] MEDS: INSULIN ASPART SUPPLEMENTAL SCALE SQ SCH ×4 (06:07→21:28)
[2016-11-15] MEDS: RESP: ALBUTEROL 2.5 MG/IPRATROPIUM 0.5 MG NEB (SCH) NEB ×3 (08:07→19:50)
[2016-11-15] MEDS: SODIUM CHLOR 0.9% 1000 ML INJ 1,000 ML IV SCH (08:31)
[2016-11-15] MEDS: FAMOTIDINE 20 MG TAB PO SCH ×2 (08:33→21:27)
[2016-11-15] MEDS: SODIUM CHLORIDE 0.9% FLUSH 10 ML FLUSH IV FLUSH SCH ×2 (08:34→21:26)
[2016-11-15] MEDS: SOTALOL HCL 80 MG TAB PO SCH ×3 (09:00→21:34)
[2016-11-15] MEDS: hydrALAZINE HCL 20 MG/ML VIAL IV PUSH PRN (10:29)
--- NOTE | 2016-11-15 11:04 | HHI.PR ---
Subjective Subjective Remarks C/O feeling weak sleepy + cough no cp no sob appetite okay no fever bradycardia, Sotalol held Review of Systems Constitutional Constitutional Remarks 12 point ROS completed, negative except as noted above Vitals/Results Intake & Output 11/14/16 11/14/16 11/15/16 15:00 23:00 07:00 Intake Total 1010 ml 1732 ml 1672 ml Output Total 750 ml 800 ml 900 ml Balance 260 ml 932 ml 772 ml Intake Oral 240 ml 600 ml 600 ml IV Total 770 ml 1132 ml 1072 ml Output Urine Total 750 ml 800 ml 900 ml # Voids 3 # Bowel Movements 1 1 Vital Signs Vital Signs Date Time Temp Pulse Resp B/P Pulse Ox O2 Delivery O2 Flow Rate FiO2 11/15/16 10:00 70 11/15/16 08:07 100 Nasal Cannula 2.00 11/15/16 08:00 98.0 55 26 185/88 99 11/15/16 08:00 55 11/15/16 06:06 54 11/15/16 04:00 56 11/15/16 04:00 98.1 65 34 154/127 99 11/15/16 02:00 59 22 155/72 98 11/15/16 02:00 60 11/15/16 01:01 58 24 158/70 97 11/15/16 00:00 63 11/15/16 00:00 98.3 60 23 169/76 98 11/15/16 00:00 60 23 169/76 98 11/14/16 22:00 68 11/14/16 20:00 98.4 79 26 165/72 97 11/14/16 20:00 79 11/14/16 19:34 98 Nasal Cannula 2.00 11/14/16 18:00 93 11/14/16 16:00 98.5 77 20 142/66 98 11/14/16 16:00 77 11/14/16 14:27 96 Nasal Cannula 2.00 11/14/16 14:00 77 11/14/16 12:00 83 11/14/16 12:00 98.3 83 24 151/69 96 CBC/BMP: 11/14/16 1107 11/14/16 1107 Lab Results Laboratory Tests Test 11/14/16 11/15/16 11:07 01:45 White Blood Count 17.6 TH/MM3 Red Blood Count 3.92 MIL/MM3 Hemoglobin 11.1 GM/DL Hematocrit 33.4 % Mean Corpuscular Volume 85.3 FL Mean Corpuscular Hemoglobin 28.3 PG Mean Corpuscular Hemoglobin 33.2 % Concent Red Cell Distribution Width 14.7 % Platelet Count 375 TH/MM3 Mean Platelet Volume 9.7 FL Sodium Level 140 MEQ/L Potassium Level 3.7 MEQ/L Chloride Level 106 MEQ/L Carbon Dioxide Level 25.8 MEQ/L Anion Gap 8 MEQ/L Blood Urea Nitrogen 14 MG/DL Creatinine 0.98 MG/DL Estimat Glomerular Filtration 76 ML/MIN Rate Random Glucose 171 MG/DL Calcium Level 8.7 MG/DL Mycoplasma pneumoniae IgG 2.18 index Antibody Mycoplasma pneumoniae IgM 0.16 index Antibody Vancomycin Level Trough 13.3 MCG/ML Microbiology Microbiology 11/14/16 Acid Fast Stain, Received Pending 11/14/16 Mycobacterial Culture, Received Pending Physical Exam General General Appearance: Well Developed, Well Nourished, No Acute Distress, Comfortable, Pale Eyes Eye Exam: Pupils Equal, Pupils Reactive Ears & Nose Ears & Nose Exam: Nasal Mucosa [place] Throat Throat Exam: Oral Mucosa [place] & Moist Neck Neck Exam: Neck Supple, Trachea Midline Pulmonary Resp Exam: Rhonchi Resp Remarks exp. wheezes Cardiology CV Exam: Regular, Normal Sinus Rhythm (heart rate 60s) Gastrointestinal/Abdomen GI Exam: Soft, Non-Tender, Bowel Sounds Present, Non-Distended Hematologic/Lymphatic Heme Exam: Enlarged Nodes (possible chest) Musculoskeletal MS Exam: Joints Intact Integumentary Skin Exam: Clear, Warm, Dry, Intact Extremeties Extremities Exam: No Edema Neurologic Neuro Exam: Alert, Awake, Oriented, Speech Clear, Moving All Extremities, No Focal Deficits Psychiatric Psych Exam: Appropriate Responses VTE Prophylaxis VTE Prophylaxis Meds: Heparin PUD Prophylasis PUD Prophylaxis: Protonix Assessment/Plan Problem List: (1) Sepsis (2) Atrial fibrillation (3) Hypoxia (4) Pneumonia (5) Hyperglycemia due to type 2 diabetes mellitus (6) Elevated blood pressure reading without diagnosis of hypertension (7) Leukocytosis (8) Hyponatremia Assessment/Plan continue with empiric antibiotics poss. TB, vs malignancy, vs atypical PNA appreciate ID input, recommends pulm eval sputum gm stain neg, c/s [p] sputum for AFB neg x 2 negative, 3rd pending continue with isolation for now noted with inc. wheezing, add Solumedrol 40 mg IV q 12 antitussive PRN analgesic prn will obtain pulm consult, pt. will need further dx work up, poss. bronch. monitor WBC, trending down keep oxygen at 2L/NC to keep sats > 92 duonebs PRN Na back to normal D/C IVF BP has been elevated continue Hydralazine PRN add Lisinopril 2.5 mg po daily Accuchecks AC/HS with ISS BGM 70s, will dc Levemir no afib noted, SB on monitor appreciate cardiology input, started on Sotalol 80 mg po bid, held due to low hr Echo done, EF 55 to 60% DVT prophylaxis with heparin SQ PUD prophylaxis with Pepcid repeat labs in am continue to monitor closely D/W RN D/W Dr. Wallace, Dr. Granados D/W pt This patient was seen by myself and Dr. Wallace, this note is written on his behalf. 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
[2016-11-15] MEDS ORDERED: PILL SPLITTER OTHER PRN (11:30)
--- NOTE | 2016-11-15 12:06 | HHI.IDPN ---
Note Infectious Disease Note Patient says he feels tired. Notes he broke in profuse sweat last night. Now 2 nights in a row. Coughing and producing white -devi sputum. Afebrile. No SHUKLA, chills. On O2 via nasal canula. 3rd sputum AFB pending. 2 negative. Mycoplasma serology - neg IgM, mildly elevated IgM. PAST MEDICAL HISTORY 1. Diabetes mellitus. 2. History of diverticulitis. 3. Right shoulder surgery. 4. History of colectomy. 5. Gastroesophageal reflux disease. ALLERGIES NO KNOWN DRUG ALLERGIES. ANTIBIOTICS: Vancomycin Azithromycin Pip/Tazo. SOCIAL HISTORY No tobacco use. No alcohol use. Occasional marijuana use. The patient denies IV drug use. OBJECTIVE: Vital Signs Date Time Temp Pulse Resp B/P Pulse Ox O2 Delivery O2 Flow Rate FiO2 11/15/16 10:00 70 11/15/16 08:07 100 Nasal Cannula 2.00 11/15/16 08:00 98.0 55 26 185/88 99 11/15/16 08:00 55 11/15/16 06:06 54 11/15/16 04:00 56 11/15/16 04:00 98.1 65 34 154/127 99 11/15/16 02:00 59 22 155/72 98 11/15/16 02:00 60 11/15/16 01:01 58 24 158/70 97 11/15/16 00:00 63 11/15/16 00:00 98.3 60 23 169/76 98 11/15/16 00:00 60 23 169/76 98 11/14/16 22:00 68 11/14/16 20:00 98.4 79 26 165/72 97 11/14/16 20:00 79 11/14/16 19:34 98 Nasal Cannula 2.00 11/14/16 18:00 93 11/14/16 16:00 98.5 77 20 142/66 98 11/14/16 16:00 77 11/14/16 14:27 96 Nasal Cannula 2.00 11/14/16 14:00 77 11/14/16 12:00 83 11/14/16 12:00 98.3 83 24 151/69 96 11/14/16 11/14/16 11/15/16 15:00 23:00 07:00 Intake Total 1010 ml 1732 ml 1672 ml Output Total 750 ml 800 ml 900 ml Balance 260 ml 932 ml 772 ml Intake Oral 240 ml 600 ml 600 ml IV Total 770 ml 1132 ml 1072 ml Output Urine Total 750 ml 800 ml 900 ml # Voids 3 # Bowel Movements 1 1 Laboratory Tests Test 11/14/16 11:07 White Blood Count 17.6 TH/MM3 Red Blood Count 3.92 MIL/MM3 Hemoglobin 11.1 GM/DL Hematocrit 33.4 % Mean Corpuscular Volume 85.3 FL Mean Corpuscular Hemoglobin 28.3 PG Mean Corpuscular Hemoglobin 33.2 % Concent Red Cell Distribution Width 14.7 % Platelet Count 375 TH/MM3 Mean Platelet Volume 9.7 FL Laboratory Tests Test 11/14/16 11:07 Sodium Level 140 MEQ/L Potassium Level 3.7 MEQ/L Chloride Level 106 MEQ/L Carbon Dioxide Level 25.8 MEQ/L Anion Gap 8 MEQ/L Blood Urea Nitrogen 14 MG/DL Creatinine 0.98 MG/DL Estimat Glomerular Filtration 76 ML/MIN Rate Random Glucose 171 MG/DL Calcium Level 8.7 MG/DL Microbiology Date/Time Procedure Status Source Growth 11/12/16 18:25 Gram Stain - Final Complete Sputum Expectorated Sputum 11/12/16 18:25 Sputum Culture - Final Complete Sputum Expectorated Sputum MODERATE GROWTH NORMAL RESPIRATORY JORI 11/12/16 20:00 Legionella Antigen - Final Complete Urine Clean Catch PRESUMPTIVE NEGATIVE FOR LEGIONELLA P... 11/13/16 12:45 Acid Fast Stain - Final Resulted Sputum Expectorated Sputum NO ACID FAST BACILLI SEEN 11/13/16 12:45 Mycobacterial Culture Resulted Sputum Expectorated Sputum Pending 11/13/16 12:45 Acid Fast Stain Received Sputum Expectorated Sputum Pending 11/13/16 12:45 Mycobacterial Culture Received Sputum Expectorated Sputum Pending 11/13/16 16:30 Acid Fast Stain Eliseo Batch Sputum Expectorated Sputum Pending 11/13/16 16:30 Mycobacterial Culture Eliseo Batch Sputum Expectorated Sputum Pending 11/14/16 16:45 Acid Fast Stain Received Sputum Expectorated Sputum Pending 11/14/16 16:45 Mycobacterial Culture Received Sputum Expectorated Sputum Pending Microbiology Date/Time Procedure Status Source Growth 11/11/16 13:40 Aerobic Blood Culture - Preliminary Resulted Blood Peripheral NO GROWTH IN 2 DAYS 11/11/16 13:40 Anaerobic Blood Culture - Preliminary Resulted Blood Peripheral NO GROWTH IN 2 DAYS 11/11/16 13:40 Aerobic Blood Culture - Preliminary Resulted Blood Peripheral NO GROWTH IN 2 DAYS 11/11/16 13:40 Anaerobic Blood Culture - Preliminary Resulted Blood Peripheral NO GROWTH IN 2 DAYS 11/11/16 16:48 Acid Fast Stain - Final Resulted Sputum Expectorated Sputum NO ACID FAST BACILLI SEEN 11/11/16 16:48 Mycobacterial Culture Resulted Sputum Expectorated Sputum Pending 11/12/16 18:25 Gram Stain - Final Resulted Sputum Expectorated Sputum 11/12/16 18:25 Sputum Culture Resulted Sputum Expectorated Sputum Pending 11/12/16 20:00 Legionella Antigen - Final Complete Urine Clean Catch PRESUMPTIVE NEGATIVE FOR LEGIONELLA P... IMAGING: Chest X-Ray 11/15/16 0600 Signed Impressions: Service Date/Time: October 02:33 - CONCLUSION: There continues to be scattered bilateral pulmonary infiltrates. Adis Puri MD CT Angiography 11/11/16 1516 Signed Impressions: Service Date/Time: Friday, November 11, 2016 15:51 - CONCLUSION: 1. The study is negative for pulmonary embolism. 2. Numerous varying size irregular shaped masslike opacities throughout both lungs, middle mediastinal adenopathy, and right hilar adenopathy. Two of the masslike opacities in the left upper lung demonstrate some central gas suggesting possible necrosis. The distribution of the pulmonary abnormalities suggest a hematogenous spread pattern. Differential considerations include neoplasm, septic emboli, and related to inhalational chemical exposure. Errol Glass MD Chest X-Ray 11/11/16 1324 Signed Impressions: Service Date/Time: Friday, November 11, 2016 14:05 - CONCLUSION: Patchy areas of suspected consolidation or mass bilaterally as described above. The area in the left upper lobe is potentially cavitary. These areas could be further evaluated with a CT examination of the chest. Luke Dudley MD PHYSICAL EXAMINATION GENERAL: No acute distress. He is awake and alert and oriented. HEENT: No icterus. Oropharynx no visible lesions. No thrush. NECK: Supple. No adenopathy. LUNGS: Scattered rhonchi. HEART: Regular rate and rhythm without murmurs, rubs or gallops. ABDOMEN: Bowel sounds present, soft, nontender. EXTREMITIES: No clubbing or cyanosis or edema. NEUROLOGIC: Nonfocal. SKIN: No rash. PSYCHIATRIC: Calm and cooperative. IMPRESSION 1. Pneumonia. Possible atypical pneumonia versus tuberculosis versus septic pulmonary lesions. 2. Rule out malignancy. 3. Leukocytosis suggesting possible infection as cause of pulmonary lesions. However could also be other etiology. RECOMMENDATIONS 1. Pulmonary consult for bronchoscopy. 2. Continue piperacillin / Tazobactam. 3. Continue Azithromycin. 4. Stop vancomycin. 5. Monitor sputum AFB smear/culture. Follow PPD skin test. 6. Monitor sputum for routine culture. 7. Monitor temperature and white blood cell count. 8. Continue to monitor the patient in isolation. Jeffery Granados MD Nov 15, 2016 12:06
[2016-11-15] MEDS: LISINOPRIL 5 MG TAB PO SCH (12:46)
[2016-11-15] MEDS: methylPREDNISolone SOD SUCC 40 MG/1 ML VIAL IV PUSH SCH ×2 (12:50→21:27)
--- NOTE | 2016-11-15 13:59 | EKG ---
Date Performed: 11/15/2016 Time Performed: 07:41:47 PTAGE: 71 years EKG: SINUS BRADYCARDIA PROLONGED QT INTERVAL ABNORMAL ECG Compared to prior tracing no significa nt change PREVIOUS TRACING : 11/11/2016 13.43 DOCTOR: Jose Cotto Interpretating Date/Time 11/15/2016 13:57:06
--- NOTE | 2016-11-15 14:08 | PD.CARD.PN ---
Subjective Subjective Remarks No CP or SOB, still has cough Objective Medications Current Medications Medications (Trade) Dose Ordered Sig/Jaden Route Start Time Stop Time Status Last Admin (NS 1000 ml Inj) 1,000 ml @ 30 mls/hr Q24H IV 11/11/16 16:00 11/15/16 08:31 (NS Flush) 2 ml UNSCH PRN IV FLUSH 11/11/16 15:30 (NS Flush) 2 ml BID IV FLUSH 11/11/16 21:00 11/15/16 08:34 (Dulcolax Supp) 10 mg DAILY PRN RECTAL 11/11/16 15:30 (Milk Of Magnesia Liq) 30 ml Q12H PRN PO 11/11/16 15:30 (Senokot) 17.2 mg Q12H PRN PO 11/11/16 15:30 (Heparin Inj) 5,000 units Q12H SQ 11/11/16 17:00 11/15/16 06:07 (Narcan Inj) 0.4 mg UNSCH PRN IV 11/11/16 15:30 (D50w (Vial) Inj) 25 ml UNSCH PRN IV PUSH 11/11/16 15:30 (Glucagon Inj) 1 mg UNSCH PRN OTHER 11/11/16 15:30 Famotidine 20 mg 20 mg BID PO 11/11/16 21:00 11/15/16 08:33 Piperacillin Sod/ Tazobactam Sod 50 ml @ 100 mls/hr Q6H IV 11/11/16 21:00 11/15/16 08:31 (Vancomycin Consult Pharmacy) 0 ml @ 0 mls/hr UNSCH OTHER 11/11/16 19:00 Miscellaneous Information Patient in critical care unit? Ass... Q361D .XX 11/11/16 23:00 (Chlorhexidine 2% Cloth) 3 pack DAILY@04 TOPICAL 11/12/16 04:00 11/16/16 04:01 11/15/16 02:16 (Chlorhexidine 2% Cloth) 3 pack UNSCH PRN TOPICAL 11/11/16 23:00 11/16/16 22:58 (Hycodan Liq) 5 ml Q4H PRN PO 11/12/16 12:00 11/15/16 00:31 Hydralazine HCl 20 mg 20 mg Q4H PRN IV PUSH 11/12/16 14:15 11/15/16 10:29 (Zithromax Inj/ NS 250 ml Inj) 250 ml @ 250 mls/hr Q24H IV 11/12/16 15:00 11/14/16 16:42 (Restoril) 15 mg HS PRN PO 11/12/16 21:00 11/12/16 20:04 (Skin Test Result) 1 Q24H .XX 11/14/16 18:00 11/16/16 18:01 11/14/16 17:48 Sotalol HCl 80 mg 80 mg Q12HR PO 11/14/16 21:00 11/14/16 21:30 (Vancomycin Inj/ NS 500 ml Inj) 515 ml @ 250 mls/hr Q12H IV 11/15/16 14:00 Miscellaneous Information SPECIFIC LAB TO BE DRAWN:VANCOMYCIN TROUGH DATE TO... ONCE ONCE .XX 11/17/16 01:45 11/17/16 01:46 (Prinivil) 2.5 mg DAILY PO 11/15/16 11:15 11/15/16 12:46 (Pill Splitter) 1 ea UNSCH PRN OTHER 11/15/16 11:30 (SoluMEDROL INJ) 40 mg Q12HR IV PUSH 11/15/16 11:45 11/15/16 12:50 Vital Signs / I&O Vital Signs Date Time Temp Pulse Resp B/P Pulse Ox O2 Delivery O2 Flow Rate FiO2 11/15/16 10:00 70 11/15/16 08:07 100 Nasal Cannula 2.00 11/15/16 08:00 98.0 26 185/88 Laboratory Tests Test 11/15/16 01:45 Vancomycin Level Trough 13.3 MCG/ML INTAKE & OUTPUT 11/15/16 11/15/16 11/15/16 07:00 15:00 23:00 Intake Total 1672 ml Output Total 900 ml Balance 772 ml Physical Exam GENERAL: IN NAD SKIN: Warm and dry. HEAD: Normocephalic. EYES: No scleral icterus. No injection or drainage. NECK: Supple, trachea midline. No JVD or lymphadenopathy. CARDIOVASCULAR: Regular rate and rhythm without murmurs, gallops, or rubs. RESPIRATORY: Breath sounds equal bilaterally. No accessory muscle use. GASTROINTESTINAL: Abdomen soft, non-tender, nondistended. MUSCULOSKELETAL: No cyanosis, or edema. Laboratory Laboratory Tests Test 11/15/16 01:45 Vancomycin Level Trough 13.3 MCG/ML Imaging Last Impressions Chest X-Ray 11/15/16 0600 Signed Impressions: Service Date/Time: October 02:33 - CONCLUSION: There continues to be scattered bilateral pulmonary infiltrates. Adis Puri MD CT Angiography 11/11/16 1516 Signed Impressions: Service Date/Time: Friday, November 11, 2016 15:51 - CONCLUSION: 1. The study is negative for pulmonary embolism. 2. Numerous varying size irregular shaped masslike opacities throughout both lungs, middle mediastinal adenopathy, and right hilar adenopathy. Two of the masslike opacities in the left upper lung demonstrate some central gas suggesting possible necrosis. The distribution of the pulmonary abnormalities suggest a hematogenous spread pattern. Differential considerations include neoplasm, septic emboli, and related to inhalational chemical exposure. Errol Glass MD Assessment and Plan Problem List: (1) Atrial fibrillation (2) Hyperglycemia due to type 2 diabetes mellitus (3) Pneumonia (4) Sepsis Assessment and Plan Recurrent episodes of a fib, no recurrence since sotalol started. ID evaluation in progress. Increase activity. 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
[2016-11-15] MEDS: VANCOMYCIN INJ 1,500 MG in SODIUM CHLORID 0.9% 500 ML INJ 500 ML IV SCH (15:55)
[2016-11-15] MEDS: AZITHROMYCIN INJ 500 MG in SODIUM CHLOR 0.9% 250 ML INJ 250 ML IV SCH (16:02)
[2016-11-15] MEDS: SKIN TEST RESULT SCH (18:00)
[2016-11-15 22:06] LABS: AUTOMATED NEUTROPHIL # 11.7 TH/MM3 (1.8-7.7); BASOPHIL % 0.3 % (0.0-2.0); HEMATOCRIT 33.2 % (39.0-51.0); HEMO FLAGS DIFF FINAL; LYMPH % 7.1 % (9.0-44.0); LYMPHOCYTE # 0.9 TH/MM3 (1.0-4.8); MEAN CELL VOLUME 86.3 FL (80.0-100.0); MEAN CORPUSCULAR HEMOGLOBIN 28.1 PG (27.0-34.0); MEAN CORPUSCULAR HGB CONC 32.6 % (32.0-36.0); MONO % 1.9 % (0.0-8.0); NEUT % 90.7 % (16.0-70.0); PLATELET COUNT 397 TH/MM3 (150-450); RED BLOOD COUNT 3.84 MIL/MM3 (4.50-5.90); RED CELL DISTRIBUTION WIDTH 15.5 % (11.6-17.2); WHITE BLOOD COUNT 12.9 TH/MM3 (4.0-11.0)
[2016-11-15 22:26] LABS: INTERNATIONAL NORMALIZED RATIO 1.1 RATIO; PROTHROMBIN TIME - PATIENT 12.2 SEC (9.8-11.6)
[2016-11-15 22:33] LABS: BICARBONATE 24.4 MEQ/L (21.0-32.0); POTASSIUM 4.6 MEQ/L (3.5-5.1)
[2016-11-15] MEDS ORDERED: INSULIN ASPART 1,000 UNITS/10 ML VIAL SQ SCH (22:51)
[2016-11-15] MEDS ORDERED: DEXTROSE 50% IN WATER 50 ML VIAL(D50) IV PUSH PRN (23:15)
[2016-11-15] MEDS ORDERED: GLUCAGON 1 MG/ML VIAL OTHER PRN (23:15)
[2016-11-16] VITALS (14 sets, daily range): BP systolic 133–171; BP diastolic 63–124; PULSE 54–66; RESP 20–29; TEMP 97.7–98.5; O2SAT 96–100
[2016-11-16] MEDS: VANCOMYCIN INJ 1,500 MG in SODIUM CHLORID 0.9% 500 ML INJ 500 ML IV SCH ×2 (00:19→13:35)
[2016-11-16] MEDS: HEPARIN SODIUM - SQ 10,000 UNITS/ML VIAL SQ SCH ×2 (03:39→17:00)
[2016-11-16] MEDS: CHLORHEXIDINE GLUCONATE 2 % 1 PACK (2 CLOTHS)(taper/protocol) TOPICAL SCH (03:40)
[2016-11-16] MEDS: PIPERACIL-TAZO 3.375 GM PREMIX 50 ML IV SCH ×4 (03:40→22:07)
[2016-11-16] MEDS: HYDROcodone 5 MG/HOMATROPINE 1.5 MG SYRUP 5 ML CUP PO PRN (03:43)
[2016-11-16 04:34] LABS: HEMATOCRIT 32.6 % (39.0-51.0); MEAN CELL VOLUME 85.4 FL (80.0-100.0); MEAN CORPUSCULAR HEMOGLOBIN 27.5 PG (27.0-34.0); MEAN CORPUSCULAR HGB CONC 32.3 % (32.0-36.0); PLATELET COUNT 419 TH/MM3 (150-450); RED BLOOD COUNT 3.82 MIL/MM3 (4.50-5.90); RED CELL DISTRIBUTION WIDTH 14.9 % (11.6-17.2); REVIEW FLAG FINAL; WHITE BLOOD COUNT 14.8 TH/MM3 (4.0-11.0)
[2016-11-16 04:58] LABS: BICARBONATE 25.2 MEQ/L (21.0-32.0); POTASSIUM 4.2 MEQ/L (3.5-5.1)
[2016-11-16] MEDS: HIGH DOSE INSULIN NOVOLOG SUPPLEMENTAL SCALE SQ SCH ×4 (06:20→21:00)
[2016-11-16] MEDS: RESP: ALBUTEROL 2.5 MG/IPRATROPIUM 0.5 MG NEB (SCH) NEB ×2 (07:49→12:51)
[2016-11-16] MEDS: FAMOTIDINE 20 MG TAB PO SCH ×2 (08:12→22:10)
[2016-11-16] MEDS: SOTALOL HCL 80 MG TAB PO SCH ×2 (08:12→22:10)
[2016-11-16] MEDS: LISINOPRIL 5 MG TAB PO SCH (08:12)
[2016-11-16] MEDS: methylPREDNISolone SOD SUCC 40 MG/1 ML VIAL IV PUSH SCH (08:13)
[2016-11-16] MEDS: SODIUM CHLORIDE 0.9% FLUSH 10 ML FLUSH IV FLUSH SCH ×2 (08:17→22:10)
--- NOTE | 2016-11-16 08:19 | MB ---
cc: GENEVIEVE DENNISON DATE OF CONSULTATION 11/15/2016 REASON FOR CONSULTATION Evaluation pulmonary management and bronchoscopy. HISTORY OF PRESENT ILLNESS Mr. Slaughter is a 71-year-old male with history of diabetes mellitus, diverticulitis and history of colectomy. The patient came to the hospital with 5-7 days history of not feeling well. 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 He was at work and sudden felt very bad and could not walk. He was having persistent cough and has brownish sputum production. No hemoptysis. He did not have any fever or chills. No night sweats. No nausea or vomiting. Because of worsening of his symptoms, he came to the hospital. He had a workup done. He had a CT of the chest done. It does not show any pulmonary embolism. It shows that he has numerous varying sized irregular shaped mass like opacities throughout both lungs, mediastinal adenopathy, and right hilar adenopathy. Findings are suspicious for hematogenous spread. The patient was worked up by infectious disease. His blood were negative. Legionella and pneumococcal antigen negative. ASB is negative. His CBC shows a WBC count of 17.6, hemoglobin 11.1, hematocrit 33.4, MCV 85, platelet count 375. Sodium 140, potassium 3.7, chloride 106, CO2 25, BUN 14, creatinine 0.98. Blood gas pH 0.52, pCO2 28, pO2 57 on room air. PAST MEDICAL HISTORY Significant for a history of: 1. Diabetes mellitus 2. Diverticulitis 3. History of colectomy. MEDICATIONS He is currently taking 1. Vancomycin 2. Solu-Medrol 40 mg q. 12-hour. 3. Sotalol 40 mg q. 12-hour 4. Lisinopril 2.5 mg a day 5. Albuterol/Atrovent Nebulizer treatment 6. Zithromax 500 mg a day 7. Hydralazine 20 mg p.r.n. 8. Hydrocodone for pain 9. Zosyn IV 10. Famotidine 20 mg a day 11. Heparin 5000 q.12 h. ALLERGIES NO KNOWN DRUG ALLERGIES. SOCIAL HISTORY He is a . His four years ago. He lives with his daughter. He has a history of smoking a joint. He does not smoke cigarettes or alcohol use. 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 FAMILY HISTORY He has two children, son and a daughter. His daughter is a traveling heating technician. 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 No head injuries. No vomiting or nauseousness. No history of malignancy. No exposure to TB. PHYSICAL EXAM This is a moderately built, well-nourished male mildly short of breath not in acute distress. VITAL SIGNS: Blood pressure 146/67, heart rate 70, respirations 24, temperature 97.6. HEENT: Pupils are equal and reactive to light. Oral mucosa, nasal mucosa normal. NECK: Supple. JVP not raised. CHEST: No rhonchi. CARDIOVASCULAR: S1 and S2 normal. ABDOMEN: Benign. EXTREMITIES: No edema. IMPRESSION 1. Multiple cavitary lesions in the lungs, possibly hematogenous spread spread, hilar malignancy is not ruled out. 2. Pneumonia 3. Diabetes mellitus 4. Hypertension 5. History of diverticulitis. PLAN I discussed with the patient he will need bronchoscopy. I explained the procedure and the complications including complication of pneumothorax requiring chest tube, bleeding complication due to blood vessel, lungs, nerves and nondiagnostic biopsy which she understands very well wants to proceed with it. The patient will be scheduled for bronchoscopy for tomorrow. Further treatment will depend upon the course in the hospital. Thank you Dr. Granados for this consult. MD NILESH Morris/OLEG /8:19 PM /7:53 AM KAMRAN
--- NOTE | 2016-11-16 09:46 | HHI.PR ---
Subjective Subjective Remarks Feels a little better today Appetite is stable Some cough with sputum production No fever No chest pain Having bowel movements Sinus rhythm on monitor Review of Systems Constitutional Constitutional Remarks 12 point ROS completed, negative except as noted above Vitals/Results Intake & Output 11/15/16 11/15/16 11/16/16 15:00 23:00 07:00 Intake Total 2859 ml Output Total 802 ml 552 ml Balance -802 ml 2307 ml Intake Oral 650 ml IV Total 2209 ml Output Urine Total 800 ml 550 ml Stool Total 2 ml 2 ml # Bowel Movements 3 Vital Signs Vital Signs Date Time Temp Pulse Resp B/P Pulse Ox O2 Delivery O2 Flow Rate FiO2 11/16/16 08:00 97.8 60 22 167/74 98 11/16/16 08:00 60 11/16/16 07:50 96 Nasal Cannula 2.00 11/16/16 06:00 66 11/16/16 04:19 97.7 60 26 156/124 100 11/16/16 04:05 60 11/16/16 02:00 54 11/16/16 00:00 97.8 60 20 142/67 98 11/16/16 00:00 60 11/15/16 22:00 68 11/15/16 20:08 73 11/15/16 20:00 98.5 73 22 136/77 90 11/15/16 19:50 96 Nasal Cannula 2.00 11/15/16 18:00 73 11/15/16 16:00 97.6 82 24 146/67 98 11/15/16 16:00 70 11/15/16 14:00 72 11/15/16 14:00 74 11/15/16 10:00 70 CBC/BMP: 11/16/16 0340 11/16/16 0340 Lab Results Laboratory Tests Test 11/15/16 11/16/16 21:53 03:40 White Blood Count 12.9 TH/MM3 14.8 TH/MM3 Red Blood Count 3.84 MIL/MM3 3.82 MIL/MM3 Hemoglobin 10.8 GM/DL 10.5 GM/DL Hematocrit 33.2 % 32.6 % Mean Corpuscular Volume 86.3 FL 85.4 FL Mean Corpuscular Hemoglobin 28.1 PG 27.5 PG Mean Corpuscular Hemoglobin 32.6 % 32.3 % Concent Red Cell Distribution Width 15.5 % 14.9 % Platelet Count 397 TH/MM3 419 TH/MM3 Mean Platelet Volume 10.0 FL 10.1 FL Neutrophils (%) (Auto) 90.7 % Lymphocytes (%) (Auto) 7.1 % Monocytes (%) (Auto) 1.9 % Eosinophils (%) (Auto) 0.0 % Basophils (%) (Auto) 0.3 % Neutrophils # (Auto) 11.7 TH/MM3 Lymphocytes # (Auto) 0.9 TH/MM3 Monocytes # (Auto) 0.2 TH/MM3 Eosinophils # (Auto) 0.0 TH/MM3 Basophils # (Auto) 0.0 TH/MM3 CBC Comment DIFF FINAL Differential Comment Prothrombin Time 12.2 SEC Prothromb Time International 1.1 RATIO Ratio Activated Partial 31.0 SEC Thromboplast Time Sodium Level 135 MEQ/L 138 MEQ/L Potassium Level 4.6 MEQ/L 4.2 MEQ/L Chloride Level 102 MEQ/L 107 MEQ/L Carbon Dioxide Level 24.4 MEQ/L 25.2 MEQ/L Anion Gap 9 MEQ/L 6 MEQ/L Blood Urea Nitrogen 26 MG/DL 27 MG/DL Creatinine 1.22 MG/DL 1.02 MG/DL Estimat Glomerular Filtration 59 ML/MIN 72 ML/MIN Rate Random Glucose 443 MG/DL 247 MG/DL Calcium Level 8.3 MG/DL 8.4 MG/DL Physical Exam General General Appearance: Well Developed, Well Nourished, No Acute Distress, Comfortable, Pale Eyes Eye Exam: Pupils Equal, Pupils Reactive Ears & Nose Ears & Nose Exam: Nasal Mucosa [place] Throat Throat Exam: Oral Mucosa [place] & Moist Neck Neck Exam: Neck Supple, Trachea Midline Pulmonary Resp Exam: Rhonchi Resp Remarks Minimal expiratory wheezes Cardiology CV Exam: Regular, Normal Sinus Rhythm (heart rate 60s) Gastrointestinal/Abdomen GI Exam: Soft, Non-Tender, Bowel Sounds Present, Non-Distended Musculoskeletal MS Exam: Joints Intact Integumentary Skin Exam: Clear, Warm, Dry, Intact Extremeties Extremities Exam: No Edema Neurologic Neuro Exam: Alert, Awake, Oriented, Speech Clear, Moving All Extremities, No Focal Deficits Psychiatric Psych Exam: Appropriate Responses VTE Prophylaxis VTE Prophylaxis Meds: Heparin PUD Prophylasis PUD Prophylaxis: Protonix Assessment/Plan Problem List: (1) Sepsis (2) Atrial fibrillation (3) Hypoxia (4) Pneumonia (5) Hyperglycemia due to type 2 diabetes mellitus (6) Elevated blood pressure reading without diagnosis of hypertension (7) Leukocytosis (8) Hyponatremia Assessment/Plan continue with empiric antibiotics poss. TB, vs malignancy, vs atypical PNA appreciate ID input sputum gm stain neg, c/s [p] sputum for AFB neg x 2 negative, 3rd pending continue with isolation for now Decrease Solumedrol 40 mg IV q day antitussive PRN analgesic prn monitor WBC, trending down Pulmonary input appreciated, Dr. Sumner plans bronchoscopy and biopsy today keep oxygen at 2L/NC to keep sats > 92 duonebs PRN IV steroids BP has been elevated-improved continue Hydralazine PRN continue Lisinopril 2.5 mg po daily Accuchecks AC/HS with ISS-blood glucose up to 400 last night, likely secondary to steroids Sliding scale increase to medium dose Resume glyburide no afib noted, SR on monitor appreciate cardiology input, started on Sotalol Sotalol decreased to 40 mg by mouth twice a day due to bradycardia. Echo done, EF 55 to 60% DVT prophylaxis with heparin SQ PUD prophylaxis with Pepcid continue to monitor closely Okay to transfer out of ICU Patient not ready for discharge, need further diagnostic workup to identify what type of infectious process he has D/W RN D/W Dr. Wallace D/W pt This patient was seen by myself and Dr. Wallace, this note is written on his behalf. Problem Qualifiers (1) Sepsis: Qualified Code: A41.9 - Sepsis, due to unspecified organism (2) Atrial fibrillation: Qualified Code: I48.91 - Atrial fibrillation, unspecified type (3) Pneumonia: Qualified Code: J18.9 - Pneumonia of both lungs due to infectious organism, unspecified part of lung (4) Hyperglycemia due to type 2 diabetes mellitus: Qualified Code: E11.65 - Type 2 diabetes mellitus with hyperglycemia, unspecified jail insulin use status Huong Wade Nov 16, 2016 09:46
[2016-11-16] MEDS: SODIUM CHLOR 0.9% 1000 ML INJ 1,000 ML IV SCH (10:00)
--- NOTE | 2016-11-16 10:05 | EKG ---
Date Performed: 11/16/2016 Time Performed: 07:23:57 PTAGE: 71 years EKG: SINUS BRADYCARDIA BORDERLINE ECG NO SIGNIFICANT CHANGE FROM PRIOR ELECTROCARDIOGRAM. PREVIOUS TRACING : 11/15/2016 07.41 DOCTOR: Rajinder Park Interpretating Date/Time 11/16/2016 10:04:59
[2016-11-16] MEDS ORDERED: fentaNYL CITRATE 250 MCG/5 ML AMP IV ONE (12:00)
[2016-11-16] MEDS ORDERED: ONDANSETRON HCL 4 MG/2 ML VIAL IV PUSH ONE (12:00)
[2016-11-16] MEDS ORDERED: PROPOFOL 200 MG/20 ML AMP IV ONE (12:00)
[2016-11-16] MEDS ORDERED: ePHEDrine/NS 25 MG/5 ML SYR IV ONE (12:00)
--- NOTE | 2016-11-16 13:30 | HHI.IDPN ---
Note Infectious Disease Note Patient says he feels better. Notes he broke in profuse sweat last night. Now 2 nights in a row. Coughing. Producing less sputum. Has left side chest pain upon coughing. Afebrile. No SHUKLA, chills. On O2 via nasal canula. 3rd sputum AFB negative. PPD non reactive. Mycoplasma serology - neg IgM, mildly elevated IgM. WBC still elevated. PAST MEDICAL HISTORY 1. Diabetes mellitus. 2. History of diverticulitis. 3. Right shoulder surgery. 4. History of colectomy. 5. Gastroesophageal reflux disease. ALLERGIES NO KNOWN DRUG ALLERGIES. ANTIBIOTICS: Vancomycin Azithromycin Pip/Tazo. SOCIAL HISTORY No tobacco use. No alcohol use. Occasional marijuana use. The patient denies IV drug use. OBJECTIVE: Vital Signs Date Time Temp Pulse Resp B/P Pulse Ox O2 Delivery O2 Flow Rate FiO2 11/16/16 12:00 98.5 59 20 144/82 96 11/16/16 12:00 59 11/16/16 10:00 60 11/16/16 08:00 97.8 60 22 167/74 98 11/16/16 08:00 60 11/16/16 07:50 96 Nasal Cannula 2.00 11/16/16 06:00 66 11/16/16 04:19 97.7 60 26 156/124 100 11/16/16 04:05 60 11/16/16 02:00 54 11/16/16 00:00 97.8 60 20 142/67 98 11/16/16 00:00 60 11/15/16 22:00 68 11/15/16 20:08 73 11/15/16 20:00 98.5 73 22 136/77 90 11/15/16 19:50 96 Nasal Cannula 2.00 11/15/16 18:00 73 11/15/16 16:00 97.6 82 24 146/67 98 11/15/16 16:00 70 11/15/16 14:00 72 11/15/16 14:00 74 11/15/16 11/15/16 11/16/16 15:00 23:00 07:00 Intake Total 2859 ml Output Total 802 ml 552 ml Balance -802 ml 2307 ml Intake Oral 650 ml IV Total 2209 ml Output Urine Total 800 ml 550 ml Stool Total 2 ml 2 ml # Bowel Movements 3 Laboratory Tests Test 11/15/16 11/16/16 21:53 03:40 White Blood Count 12.9 TH/MM3 14.8 TH/MM3 Red Blood Count 3.84 MIL/MM3 3.82 MIL/MM3 Hemoglobin 10.8 GM/DL 10.5 GM/DL Hematocrit 33.2 % 32.6 % Mean Corpuscular Volume 86.3 FL 85.4 FL Mean Corpuscular Hemoglobin 28.1 PG 27.5 PG Mean Corpuscular Hemoglobin 32.6 % 32.3 % Concent Red Cell Distribution Width 15.5 % 14.9 % Platelet Count 397 TH/MM3 419 TH/MM3 Mean Platelet Volume 10.0 FL 10.1 FL Neutrophils (%) (Auto) 90.7 % Lymphocytes (%) (Auto) 7.1 % Monocytes (%) (Auto) 1.9 % Eosinophils (%) (Auto) 0.0 % Basophils (%) (Auto) 0.3 % Neutrophils # (Auto) 11.7 TH/MM3 Lymphocytes # (Auto) 0.9 TH/MM3 Monocytes # (Auto) 0.2 TH/MM3 Eosinophils # (Auto) 0.0 TH/MM3 Basophils # (Auto) 0.0 TH/MM3 CBC Comment DIFF FINAL Differential Comment Laboratory Tests Test 11/15/16 11/16/16 21:53 03:40 Sodium Level 135 MEQ/L 138 MEQ/L Potassium Level 4.6 MEQ/L 4.2 MEQ/L Chloride Level 102 MEQ/L 107 MEQ/L Carbon Dioxide Level 24.4 MEQ/L 25.2 MEQ/L Anion Gap 9 MEQ/L 6 MEQ/L Blood Urea Nitrogen 26 MG/DL 27 MG/DL Creatinine 1.22 MG/DL 1.02 MG/DL Estimat Glomerular Filtration 59 ML/MIN 72 ML/MIN Rate Random Glucose 443 MG/DL 247 MG/DL Calcium Level 8.3 MG/DL 8.4 MG/DL Microbiology Date/Time Procedure Status Source Growth 11/13/16 16:30 Acid Fast Stain Eliseo Batch Sputum Expectorated Sputum Pending 11/13/16 16:30 Mycobacterial Culture Eliseo Batch Sputum Expectorated Sputum Pending 11/14/16 16:45 Acid Fast Stain - Final Resulted Sputum Expectorated Sputum NO ACID FAST BACILLI SEEN 11/14/16 16:45 Mycobacterial Culture Resulted Sputum Expectorated Sputum Pending IMAGING: Chest X-Ray 11/15/16 0600 Signed Impressions: Service Date/Time: October 02:33 - CONCLUSION: There continues to be scattered bilateral pulmonary infiltrates. Adis Puri MD CT Angiography 11/11/16 1516 Signed Impressions: Service Date/Time: Friday, November 11, 2016 15:51 - CONCLUSION: 1. The study is negative for pulmonary embolism. 2. Numerous varying size irregular shaped masslike opacities throughout both lungs, middle mediastinal adenopathy, and right hilar adenopathy. Two of the masslike opacities in the left upper lung demonstrate some central gas suggesting possible necrosis. The distribution of the pulmonary abnormalities suggest a hematogenous spread pattern. Differential considerations include neoplasm, septic emboli, and related to inhalational chemical exposure. Errol Glass MD Chest X-Ray 11/11/16 1324 Signed Impressions: Service Date/Time: Friday, November 11, 2016 14:05 - CONCLUSION: Patchy areas of suspected consolidation or mass bilaterally as described above. The area in the left upper lobe is potentially cavitary. These areas could be further evaluated with a CT examination of the chest. Luke Dudley MD PHYSICAL EXAMINATION GENERAL: No acute distress. Awake and alert and oriented. HEENT: No icterus. Oropharynx no visible lesions. No thrush. NECK: Supple. No adenopathy. LUNGS: Decreased breath sounds. HEART: Regular rate and rhythm without murmurs, rubs or gallops. ABDOMEN: Bowel sounds present, soft, nontender. No mass. EXTREMITIES: No clubbing or cyanosis or edema. NEUROLOGIC: Nonfocal. SKIN: No rash. PSYCHIATRIC: Calm and cooperative. IMPRESSION 1. Pneumonia. Possible atypical pneumonia versus tuberculosis versus septic pulmonary lesions. AFB negative on expectorated specimen. 2. Rule out malignancy. 3. Leukocytosis suggesting possible infection as cause of pulmonary lesions. However could also be other etiology. RECOMMENDATIONS 1. Continue piperacillin / Tazobactam. 2. Continue Azithromycin. 3. Follow bronch. cultures. 4. Monitor temperature and white blood cell count. 5. Continue to monitor the patient in isolation. Jeffery Granados MD Nov 16, 2016 13:30
[2016-11-16] MEDS: AZITHROMYCIN INJ 500 MG in SODIUM CHLOR 0.9% 250 ML INJ 250 ML IV SCH (15:33)
[2016-11-16] MEDS ORDERED: DO NOT ADM ANY ANTICOAGULANT DRUGS PRN (19:00)
--- NOTE | 2016-11-16 19:07 | PD.CARD.PN ---
Subjective Subjective Remarks No CP or SOB, no cough, feels fine Objective Medications Current Medications Medications (Trade) Dose Ordered Sig/Jaden Route Start Time Stop Time Status Last Admin (NS 1000 ml Inj) 1,000 ml @ 30 mls/hr Q24H IV 11/11/16 16:00 11/16/16 10:00 (NS Flush) 2 ml UNSCH PRN IV FLUSH 11/11/16 15:30 (NS Flush) 2 ml BID IV FLUSH 11/11/16 21:00 11/16/16 08:17 (Dulcolax Supp) 10 mg DAILY PRN RECTAL 11/11/16 15:30 (Milk Of Magnesia Liq) 30 ml Q12H PRN PO 11/11/16 15:30 (Senokot) 17.2 mg Q12H PRN PO 11/11/16 15:30 (Heparin Inj) 5,000 units Q12H SQ 11/11/16 17:00 11/16/16 03:39 (Narcan Inj) 0.4 mg UNSCH PRN IV 11/11/16 15:30 Famotidine 20 mg 20 mg BID PO 11/11/16 21:00 11/16/16 08:12 Piperacillin Sod/ Tazobactam Sod 50 ml @ 100 mls/hr Q6H IV 11/11/16 21:00 11/16/16 15:33 (Vancomycin Consult Pharmacy) 0 ml @ 0 mls/hr UNSCH OTHER 11/11/16 19:00 Miscellaneous Information Patient in critical care unit? Ass... Q361D .XX 11/11/16 23:00 (Chlorhexidine 2% Cloth) 3 pack UNSCH PRN TOPICAL 11/11/16 23:00 11/16/16 22:58 (Hycodan Liq) 5 ml Q4H PRN PO 11/12/16 12:00 11/16/16 03:43 Hydralazine HCl 20 mg 20 mg Q4H PRN IV PUSH 11/12/16 14:15 11/15/16 10:29 (Zithromax Inj/ NS 250 ml Inj) 250 ml @ 250 mls/hr Q24H IV 11/12/16 15:00 11/16/16 15:33 Temazepam 15 mg 15 mg HS PRN PO 11/12/16 21:00 11/12/16 20:04 (Vancomycin Inj/ NS 500 ml Inj) 515 ml @ 250 mls/hr Q12H IV 11/15/16 14:00 11/16/16 13:35 Miscellaneous Information SPECIFIC LAB TO BE DRAWN:VANCOMYCIN TROUGH DATE TO... ONCE ONCE .XX 11/17/16 01:45 11/17/16 01:46 (Prinivil) 2.5 mg DAILY PO 11/15/16 11:15 11/16/16 08:12 (Pill Splitter) 1 ea UNSCH PRN OTHER 11/15/16 11:30 (Betapace) 40 mg Q12HR PO 11/15/16 15:00 11/16/16 08:12 (D50w (Vial) Inj) 25 ml UNSCH PRN IV PUSH 11/15/16 23:15 (Glucagon Inj) 1 mg UNSCH PRN OTHER 11/15/16 23:15 (SoluMEDROL INJ) 40 mg DAILY IV PUSH 11/17/16 09:00 (Diabeta) 5 mg BID PO 11/16/16 21:00 Vital Signs / I&O Vital Signs Date Time Temp Pulse Resp B/P Pulse Ox O2 Delivery O2 Flow Rate FiO2 11/16/16 18:00 57 11/16/16 16:00 97.9 58 24 171/79 99 11/16/16 16:00 58 11/16/16 14:00 57 11/16/16 12:00 98.5 59 20 144/82 96 11/16/16 12:00 59 11/16/16 10:00 60 11/16/16 08:00 97.8 60 22 167/74 98 11/16/16 08:00 60 11/16/16 07:50 96 Nasal Cannula 2.00 11/16/16 06:00 66 11/16/16 04:19 97.7 60 26 156/124 100 11/16/16 04:05 60 11/16/16 02:00 54 11/16/16 00:00 97.8 60 20 142/67 98 11/16/16 00:00 60 11/15/16 22:00 68 11/15/16 20:08 73 11/15/16 20:00 98.5 73 22 136/77 90 11/15/16 19:50 96 Nasal Cannula 2.00 I/O 11/15/16 11/15/16 11/15/16 11/16/16 11/16/16 11/16/16 07:00 15:00 23:00 07:00 15:00 23:00 Intake Total 1672 ml 2859 ml 874 ml Output Total 900 ml 802 ml 552 ml 650 ml Balance 772 ml -802 ml 2307 ml 224 ml Intake Oral 600 ml 650 ml 300 ml IV Total 1072 ml 2209 ml 574 ml Output Urine Total 900 ml 800 ml 550 ml 650 ml Stool Total 2 ml 2 ml # Voids 3 # Bowel Movements 1 3 1 Physical Exam GENERAL: IN NAD SKIN: Warm and dry. HEAD: Normocephalic. EYES: No scleral icterus. No injection or drainage. NECK: Supple, trachea midline. No JVD or lymphadenopathy. CARDIOVASCULAR: Regular rate and rhythm without murmurs, gallops, or rubs. RESPIRATORY: Breath sounds equal bilaterally. No accessory muscle use. GASTROINTESTINAL: Abdomen soft, non-tender, nondistended. MUSCULOSKELETAL: No cyanosis, or edema. Laboratory Laboratory Tests Test 11/15/16 11/16/16 21:53 03:40 White Blood Count 12.9 TH/MM3 14.8 TH/MM3 Red Blood Count 3.84 MIL/MM3 3.82 MIL/MM3 Hemoglobin 10.8 GM/DL 10.5 GM/DL Hematocrit 33.2 % 32.6 % Mean Corpuscular Volume 86.3 FL 85.4 FL Mean Corpuscular Hemoglobin 28.1 PG 27.5 PG Mean Corpuscular Hemoglobin 32.6 % 32.3 % Concent Red Cell Distribution Width 15.5 % 14.9 % Platelet Count 397 TH/MM3 419 TH/MM3 Mean Platelet Volume 10.0 FL 10.1 FL Neutrophils (%) (Auto) 90.7 % Lymphocytes (%) (Auto) 7.1 % Monocytes (%) (Auto) 1.9 % Eosinophils (%) (Auto) 0.0 % Basophils (%) (Auto) 0.3 % Neutrophils # (Auto) 11.7 TH/MM3 Lymphocytes # (Auto) 0.9 TH/MM3 Monocytes # (Auto) 0.2 TH/MM3 Eosinophils # (Auto) 0.0 TH/MM3 Basophils # (Auto) 0.0 TH/MM3 CBC Comment DIFF FINAL Differential Comment Prothrombin Time 12.2 SEC Prothromb Time International 1.1 RATIO Ratio Activated Partial 31.0 SEC Thromboplast Time Sodium Level 135 MEQ/L 138 MEQ/L Potassium Level 4.6 MEQ/L 4.2 MEQ/L Chloride Level 102 MEQ/L 107 MEQ/L Carbon Dioxide Level 24.4 MEQ/L 25.2 MEQ/L Anion Gap 9 MEQ/L 6 MEQ/L Blood Urea Nitrogen 26 MG/DL 27 MG/DL Creatinine 1.22 MG/DL 1.02 MG/DL Estimat Glomerular Filtration 59 ML/MIN 72 ML/MIN Rate Random Glucose 443 MG/DL 247 MG/DL Calcium Level 8.3 MG/DL 8.4 MG/DL Imaging Last Impressions Chest X-Ray 11/15/16 0600 Signed Impressions: Service Date/Time: October 02:33 - CONCLUSION: There continues to be scattered bilateral pulmonary infiltrates. Adis Puri MD CT Angiography 11/11/16 1516 Signed Impressions: Service Date/Time: Friday, November 11, 2016 15:51 - CONCLUSION: 1. The study is negative for pulmonary embolism. 2. Numerous varying size irregular shaped masslike opacities throughout both lungs, middle mediastinal adenopathy, and right hilar adenopathy. Two of the masslike opacities in the left upper lung demonstrate some central gas suggesting possible necrosis. The distribution of the pulmonary abnormalities suggest a hematogenous spread pattern. Differential considerations include neoplasm, septic emboli, and related to inhalational chemical exposure. Errol Glass MD Assessment and Plan Problem List: (1) Atrial fibrillation (2) Hyperglycemia due to type 2 diabetes mellitus (3) Pneumonia (4) Sepsis Assessment and Plan In SR on low dose sotalol, continue current program. ID and pulmonary evaluation in progress. Increase activity. 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
[2016-11-16] MEDS ORDERED: MIDAZOLAM HCL 2 MG/2 ML VIAL ONE (19:08)
[2016-11-16] MEDS ORDERED: *RESP: ALBUTEROL 2.5 MG/3 ML NEB (PRN) PERIprocedural Use ONLY NEB ONE (19:11)
--- NOTE | 2016-11-16 19:12 | HHI.PR ---
Subjective Remarks 71 YOWM with DM,HTN,Multiple cavitary lesions Had bronch No endobronchial lesion Minimal secretions Objective Vital Signs Vital Signs Date Time Temp Pulse Resp B/P Pulse Ox O2 Delivery O2 Flow Rate FiO2 11/16/16 18:00 57 11/16/16 16:00 97.9 58 24 171/79 99 11/16/16 16:00 58 11/16/16 14:00 57 11/16/16 12:00 98.5 59 20 144/82 96 11/16/16 12:00 59 11/16/16 10:00 60 11/16/16 08:00 97.8 60 22 167/74 98 11/16/16 08:00 60 11/16/16 07:50 96 Nasal Cannula 2.00 11/16/16 06:00 66 11/16/16 04:19 97.7 60 26 156/124 100 11/16/16 04:05 60 11/16/16 02:00 54 11/16/16 00:00 97.8 60 20 142/67 98 11/16/16 00:00 60 11/15/16 22:00 68 11/15/16 20:08 73 11/15/16 20:00 98.5 73 22 136/77 90 11/15/16 19:50 96 Nasal Cannula 2.00 I/O 11/15/16 11/15/16 11/15/16 11/16/16 11/16/16 11/16/16 07:00 15:00 23:00 07:00 15:00 23:00 Intake Total 1672 ml 2859 ml 874 ml Output Total 900 ml 802 ml 552 ml 650 ml Balance 772 ml -802 ml 2307 ml 224 ml Intake Oral 600 ml 650 ml 300 ml IV Total 1072 ml 2209 ml 574 ml Output Urine Total 900 ml 800 ml 550 ml 650 ml Stool Total 2 ml 2 ml # Voids 3 # Bowel Movements 1 3 1 Result Diagram: 11/16/1633911/16/16339 Objective Remarks GENERAL: MBMN WM,NAD SKIN: Warm and dry. HEAD: Normocephalic. EYES: No scleral icterus. No injection or drainage. NECK: Supple, trachea midline. No JVD or lymphadenopathy. CARDIOVASCULAR: Regular rate and rhythm without murmurs, gallops, or rubs. RESPIRATORY: Breath sounds equal bilaterally. No accessory muscle use. GASTROINTESTINAL: Abdomen soft, non-tender, nondistended. MUSCULOSKELETAL: No cyanosis, or edema. BACK: Nontender without obvious deformity. No CVA tenderness. A/P Assessment and Plan Multiple lung cavitary lesions Pneumonia DM HTN Plan; Check bronch results post bronch cxr Abx per Fraicsco Dean MD Nov 16, 2016 19:12
--- NOTE | 2016-11-16 19:52 | RADRPT ---
EXAM DATE/TIME: 11/16/2016 18:54 [facility] COMPARISON: CHEST SINGLE AP, November 15, 2016, 2:33. INDICATIONS : Post bronchoscopy MEDICAL HISTORY : None. SURGICAL HISTORY : None. ENCOUNTER: Initial ACUITY: 1 day PAIN SCORE: Non-responsive. LOCATION: Bilateral chest FINDINGS: The heart size is normal. There is some minimal increased density identified at the bases especially on the right. There also appears to be some subtle increased density in the left upper lobe. The r ight perihilar region appears clear. The bony structures are grossly intact. A pneumothorax is not seen. CONCLUSION: Minimal suspected consolidation or atelectasis at the right base and in the left uppe r lung. Luke Dudley MD on November 16, 2016 at 19:41 Board Certified Radiologist. This report was verified electronically.
[2016-11-16] MEDS: SKIN TEST RESULT SCH (20:00)
[2016-11-16] MEDS: glyBURIDE 5 MG TAB PO SCH (22:25)
[2016-11-17] VITALS (11 sets, daily range): BP systolic 148–187; BP diastolic 68–84; PULSE 51–91; RESP 17–24; TEMP 97.8–98.8; O2SAT 93–100
[2016-11-17] MEDS ORDERED: PHARMACY ORDERED LAB ONE (01:45)
[2016-11-17] MEDS: VANCOMYCIN INJ 1,500 MG in SODIUM CHLORID 0.9% 500 ML INJ 500 ML IV SCH (02:29)
[2016-11-17] MEDS: PIPERACIL-TAZO 3.375 GM PREMIX 50 ML IV SCH ×4 (04:59→21:06)
[2016-11-17] MEDS: HEPARIN SODIUM - SQ 10,000 UNITS/ML VIAL SQ SCH ×2 (05:00→17:13)
[2016-11-17] MEDS: HIGH DOSE INSULIN NOVOLOG SUPPLEMENTAL SCALE SQ SCH ×4 (06:37→20:34)
[2016-11-17] MEDS: FAMOTIDINE 20 MG TAB PO SCH ×2 (08:21→20:34)
[2016-11-17] MEDS: LISINOPRIL 5 MG TAB PO SCH (08:21)
[2016-11-17] MEDS: glyBURIDE 5 MG TAB PO SCH ×2 (08:21→20:34)
[2016-11-17] MEDS: SODIUM CHLORIDE 0.9% FLUSH 10 ML FLUSH IV FLUSH SCH ×2 (08:22→21:05)
[2016-11-17] MEDS: methylPREDNISolone SOD SUCC 40 MG/1 ML VIAL IV PUSH SCH (08:22)
[2016-11-17] MEDS: SOTALOL HCL 80 MG TAB PO SCH ×2 (08:23→20:34)
[2016-11-17] MEDS: SODIUM CHLOR 0.9% 1000 ML INJ 1,000 ML IV SCH (10:00)
--- NOTE | 2016-11-17 14:12 | PD.CARD.PN ---
Subjective Subjective Remarks No CP or SOB, feels fine Objective Medications Current Medications Medications (Trade) Dose Ordered Sig/Jaden Route Start Time Stop Time Status Last Admin (NS 1000 ml Inj) 1,000 ml @ 30 mls/hr Q24H IV 11/11/16 16:00 11/17/16 10:00 (NS Flush) 2 ml UNSCH PRN IV FLUSH 11/11/16 15:30 (NS Flush) 2 ml BID IV FLUSH 11/11/16 21:00 11/17/16 08:22 (Dulcolax Supp) 10 mg DAILY PRN RECTAL 11/11/16 15:30 (Milk Of Magnesia Liq) 30 ml Q12H PRN PO 11/11/16 15:30 (Senokot) 17.2 mg Q12H PRN PO 11/11/16 15:30 (Heparin Inj) 5,000 units Q12H SQ 11/11/16 17:00 11/17/16 05:00 (Narcan Inj) 0.4 mg UNSCH PRN IV 11/11/16 15:30 Famotidine 20 mg 20 mg BID PO 11/11/16 21:00 11/17/16 08:21 Piperacillin Sod/ Tazobactam Sod 50 ml @ 100 mls/hr Q6H IV 11/11/16 21:00 11/17/16 08:21 (Vancomycin Consult Pharmacy) 0 ml @ 0 mls/hr UNSCH OTHER 11/11/16 19:00 Miscellaneous Information Patient in critical care unit? Ass... Q361D .XX 11/11/16 23:00 (Hycodan Liq) 5 ml Q4H PRN PO 11/12/16 12:00 11/16/16 03:43 Hydralazine HCl 20 mg 20 mg Q4H PRN IV PUSH 11/12/16 14:15 11/15/16 10:29 (Zithromax Inj/ NS 250 ml Inj) 250 ml @ 250 mls/hr Q24H IV 11/12/16 15:00 11/16/16 15:33 (Restoril) 15 mg HS PRN PO 11/12/16 21:00 11/12/16 20:04 (Prinivil) 2.5 mg DAILY PO 11/15/16 11:15 11/17/16 08:21 (Pill Splitter) 1 ea UNSCH PRN OTHER 11/15/16 11:30 (Betapace) 40 mg Q12HR PO 11/15/16 15:00 11/17/16 08:23 (D50w (Vial) Inj) 25 ml UNSCH PRN IV PUSH 11/15/16 23:15 (Glucagon Inj) 1 mg UNSCH PRN OTHER 11/15/16 23:15 (SoluMEDROL INJ) 40 mg DAILY IV PUSH 11/17/16 09:00 11/17/16 08:22 (Diabeta) 5 mg BID PO 11/16/16 21:00 11/17/16 08:21 Miscellaneous Information ALL NURSING DEPARTME... UNSCH PRN .XX 11/16/16 19:00 11/17/16 18:59 (Vancomycin Inj/ NS 250 ml Inj) 250 ml @ 250 mls/hr Q12H IV 11/18/16 02:00 Miscellaneous Information SPECIFIC LAB TO BE LISA... ONCE ONCE .XX 11/19/16 01:45 11/19/16 01:46 Vital Signs / I&O Vital Signs Date Time Temp Pulse Resp B/P Pulse Ox O2 Delivery O2 Flow Rate FiO2 11/17/16 12:00 98.8 55 18 152/78 98 11/17/16 12:00 88 11/17/16 10:00 88 11/17/16 08:00 98.8 52 17 187/80 100 11/17/16 08:00 88 11/17/16 06:00 88 11/17/16 04:00 97.8 51 17 148/68 100 11/17/16 04:00 51 11/17/16 02:00 51 11/17/16 00:00 98.0 60 19 150/71 93 11/17/16 00:00 60 11/16/16 22:00 65 11/16/16 20:00 60 11/16/16 20:00 98.1 60 29 133/63 96 11/16/16 19:30 98.1 64 22 137/64 98 Nasal Cannula 2 11/16/16 19:15 71 24 130/66 97 Nasal Cannula 3 11/16/16 19:05 98.2 70 32 130/61 97 Nasal Cannula 3 11/16/16 18:00 57 11/16/16 16:00 97.9 58 24 171/79 99 11/16/16 16:00 58 I/O 11/16/16 11/16/16 11/16/16 11/17/16 11/17/16 11/17/16 07:00 15:00 23:00 07:00 15:00 23:00 Intake Total 2859 ml 874 ml 1044 ml 743 ml Output Total 552 ml 650 ml 300 ml 700 ml Balance 2307 ml 224 ml 744 ml 43 ml Intake Oral 650 ml 300 ml 250 ml 240 ml IV Total 2209 ml 574 ml 494 ml 503 ml Other 300 ml Output Urine Total 550 ml 650 ml 300 ml 700 ml Stool Total 2 ml Estimated Blood Loss 0 ml # Voids 0 # Bowel Movements 3 1 0 Physical Exam GENERAL: IN NAD SKIN: Warm and dry. HEAD: Normocephalic. EYES: No scleral icterus. No injection or drainage. NECK: Supple, trachea midline. No JVD or lymphadenopathy. CARDIOVASCULAR: Regular rate and rhythm without murmurs, gallops, or rubs. RESPIRATORY: Breath sounds equal bilaterally. No accessory muscle use. GASTROINTESTINAL: Abdomen soft, non-tender, nondistended. MUSCULOSKELETAL: No cyanosis, or edema. Laboratory Laboratory Tests Test 11/17/16 02:10 Vancomycin Level Trough 23.3 MCG/ML Imaging Last Impressions Chest X-Ray 11/16/16 0000 Signed Impressions: Service Date/Time: Wednesday, November 16, 2016 18:54 - CONCLUSION: Minimal suspected consolidation or atelectasis at the right base and in the left upper lung. Luke Dudley MD CT Angiography 11/11/16 1516 Signed Impressions: Service Date/Time: Friday, November 11, 2016 15:51 - CONCLUSION: 1. The study is negative for pulmonary embolism. 2. Numerous varying size irregular shaped masslike opacities throughout both lungs, middle mediastinal adenopathy, and right hilar adenopathy. Two of the masslike opacities in the left upper lung demonstrate some central gas suggesting possible necrosis. The distribution of the pulmonary abnormalities suggest a hematogenous spread pattern. Differential considerations include neoplasm, septic emboli, and related to inhalational chemical exposure. Errol Glass MD Assessment and Plan Problem List: (1) Atrial fibrillation (2) Hyperglycemia due to type 2 diabetes mellitus (3) Pneumonia (4) Sepsis Assessment and Plan Continue low dose sotalol for SR maintenance. EKG w nl QTc. ID and pulmonary evaluation in progress. Increase activity. D/w pt and family. Problem Qualifiers (1) Atrial fibrillation: Qualified Code: I48.91 - Atrial fibrillation, unspecified type (2) Hyperglycemia due to type 2 diabetes mellitus: Qualified Code: E11.65 - Type 2 diabetes mellitus with hyperglycemia, unspecified penitentiary insulin use status (3) Pneumonia: Qualified Code: J18.9 - Pneumonia of both lungs due to infectious organism, unspecified part of lung (4) Sepsis: Qualified Code: A41.9 - Sepsis, due to unspecified organism Rich Brooks MD Nov 17, 2016 14:12
[2016-11-17] MEDS: AZITHROMYCIN INJ 500 MG in SODIUM CHLOR 0.9% 250 ML INJ 250 ML IV SCH (17:12)
--- NOTE | 2016-11-17 18:03 | HHI.PR ---
Subjective Remarks 71 YOWM with DM,HTN,Multiple cavitary lesions Had bronch No endobronchial lesion Minimal secretions No Fever AFB negative Objective Vital Signs Vital Signs Date Time Temp Pulse Resp B/P Pulse Ox O2 Delivery O2 Flow Rate FiO2 11/17/16 16:00 98.6 58 18 156/79 98 11/17/16 16:00 88 11/17/16 14:00 88 11/17/16 12:00 98.8 55 18 152/78 98 11/17/16 12:00 88 11/17/16 10:00 88 11/17/16 08:00 98.8 52 17 187/80 100 11/17/16 08:00 88 11/17/16 06:00 88 11/17/16 04:00 97.8 51 17 148/68 100 11/17/16 04:00 51 11/17/16 02:00 51 11/17/16 00:00 98.0 60 19 150/71 93 11/17/16 00:00 60 11/16/16 22:00 65 11/16/16 20:00 60 11/16/16 20:00 98.1 60 29 133/63 96 11/16/16 19:30 98.1 64 22 137/64 98 Nasal Cannula 2 11/16/16 19:15 71 24 130/66 97 Nasal Cannula 3 11/16/16 19:05 98.2 70 32 130/61 97 Nasal Cannula 3 I/O 11/16/16 11/16/16 11/16/16 11/17/16 11/17/16 11/17/16 07:00 15:00 23:00 07:00 15:00 23:00 Intake Total 2859 ml 874 ml 1044 ml 743 ml 705 ml Output Total 552 ml 650 ml 300 ml 700 ml 600 ml Balance 2307 ml 224 ml 744 ml 43 ml 105 ml Intake Oral 650 ml 300 ml 250 ml 240 ml 380 ml IV Total 2209 ml 574 ml 494 ml 503 ml 325 ml Other 300 ml Output Urine Total 550 ml 650 ml 300 ml 700 ml 600 ml Stool Total 2 ml Estimated Blood Loss 0 ml # Voids 0 # Bowel Movements 3 1 0 Result Diagram: 11/16/16 0340 11/16/16 034 Objective Remarks GENERAL: MBMN WM,NAD SKIN: Warm and dry. HEAD: Normocephalic. EYES: No scleral icterus. No injection or drainage. NECK: Supple, trachea midline. No JVD or lymphadenopathy. CARDIOVASCULAR: Regular rate and rhythm without murmurs, gallops, or rubs. RESPIRATORY: Breath sounds equal bilaterally. No accessory muscle use. GASTROINTESTINAL: Abdomen soft, non-tender, nondistended. MUSCULOSKELETAL: No cyanosis, or edema. BACK: Nontender without obvious deformity. No CVA tenderness. A/P Assessment and Plan Multiple lung cavitary lesions Pneumonia DM HTN Plan; Check bronch results post bronch cxr Abx per ID Stable on RA Fracisco Sumner MD Nov 17, 2016 18:03
--- NOTE | 2016-11-17 18:21 | HHI.PR ---
Subjective Remarks 71 YOWM with DM,HTN,Multiple cavitary lesions Had bronch No endobronchial lesion Minimal secretions No Fever AFB negative Objective Objective Results - Vital Signs Date Time Temp Pulse Resp B/P Pulse Ox O2 Delivery O2 Flow Rate FiO2 11/17/16 16:00 98.6 58 18 156/79 98 11/17/16 16:00 88 11/17/16 14:00 88 11/17/16 12:00 98.8 55 18 152/78 98 11/17/16 12:00 88 11/17/16 10:00 88 11/17/16 08:00 98.8 52 17 187/80 100 11/17/16 08:00 88 11/17/16 06:00 88 11/17/16 04:00 97.8 51 17 148/68 100 11/17/16 04:00 51 11/17/16 02:00 51 11/17/16 00:00 98.0 60 19 150/71 93 11/17/16 00:00 60 11/16/16 22:00 65 11/16/16 20:00 60 11/16/16 20:00 98.1 60 29 133/63 96 11/16/16 19:30 98.1 64 22 137/64 98 Nasal Cannula 2 11/16/16 19:15 71 24 130/66 97 Nasal Cannula 3 11/16/16 19:05 98.2 70 32 130/61 97 Nasal Cannula 3 I/O 11/16/16 11/16/16 11/16/16 11/17/16 11/17/16 11/17/16 07:00 15:00 23:00 07:00 15:00 23:00 Intake Total 2859 ml 874 ml 1044 ml 743 ml 705 ml Output Total 552 ml 650 ml 300 ml 700 ml 600 ml Balance 2307 ml 224 ml 744 ml 43 ml 105 ml Intake Oral 650 ml 300 ml 250 ml 240 ml 380 ml IV Total 2209 ml 574 ml 494 ml 503 ml 325 ml Other 300 ml Output Urine Total 550 ml 650 ml 300 ml 700 ml 600 ml Stool Total 2 ml Estimated Blood Loss 0 ml # Voids 0 # Bowel Movements 3 1 0 Result Diagram: 11/16/16 0340 11/16/16 0340 Other Results Laboratory Tests Test 11/17/16 02:10 Vancomycin Level Trough 23.3 Date/Time Procedure Status Source Growth 11/16/16 18:30 Gram Stain - Final Resulted Bronchial Washings Left Upper Lobe 11/16/16 18:30 Bronchial Culture - Preliminary Resulted Bronchial Washings Left Upper Lobe RARE GROWTH NORMAL RESPIRATORY JORI ... 11/16/16 18:30 Fungal Smear - Final Resulted Bronchial Washings Left Upper Lobe NO FUNGAL ELEMENTS SEEN. 11/16/16 18:30 Fungal Culture Resulted Bronchial Washings Left Upper Lobe Pending 11/16/16 18:30 Acid Fast Stain Received Bronchial Washings Left Upper Lobe Pending 11/16/16 18:30 Mycobacterial Culture Received Bronchial Washings Left Upper Lobe Pending 11/14/16 16:45 Acid Fast Stain - Final Resulted Sputum Expectorated Sputum NO ACID FAST BACILLI SEEN 11/14/16 16:45 Mycobacterial Culture Resulted Sputum Expectorated Sputum Pending 11/12/16 20:00 Legionella Antigen - Final Complete Urine Clean Catch PRESUMPTIVE NEGATIVE FOR LEGIONELLA P... 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 He is alert and awake. HEAD: Normocephalic without any lesion or mass noted. . EYES: Perrla. OROPHARYNGEAL: Oropharynx without erythema or edema. MOUTH/THROAT: Tongue midline. NECK: Supple. Trachea midline without deviation. CARDIAC: Regular rhythm, regular rate, S1 and S2 are heard. LUNGS: Occ wheezes. No use of accessory muscles. ABDOMEN: Soft, nontender, no organomegaly or masses. Bowel sounds are heard in all four quadrants. No rebound. No guarding. EXTREMITIES: No CCE. NEUROLOGICAL: Patient mood and affect appropriate. SKIN:Warm and moist PSYCH: Mood and affect appropriate A/P Assessment and Plan Problem List: (1) Sepsis (2) Atrial fibrillation (3) Hypoxia (4) Pneumonia (5) Hyperglycemia due to type 2 diabetes mellitus (6) Elevated blood pressure reading without diagnosis of hypertension (7) Leukocytosis (8) Hyponatremia Assessment/Plan continue with empiric antibiotics poss. TB, vs malignancy, vs atypical PNA appreciate ID input sputum gm stain neg, c/s [p] 3 sets of sputum AFBs negative, DCed droplet precaution Decreased Solumedrol 40 mg IV q day antitussive PRN analgesic prn monitor WBC, trending down Pulmonary input appreciated: S/p bronc: no endobronchial lesions. keep oxygen at 2L/NC to keep sats > 92 duonebs PRN IV steroids BP has been elevated-improved continue Hydralazine PRN continue Lisinopril 2.5 mg po daily Accuchecks AC/HS with ISS-blood glucose elevated, likely secondary to steroids Sliding scale increased to medium dose Resumed glyburide no afib noted, SR on monitor appreciate cardiology input, started on Sotalol Sotalol decreased to 40 mg by mouth twice a day due to bradycardia. Echo done, EF 55 to 60% DVT prophylaxis with heparin SQ PUD prophylaxis with Pepcid continue to monitor closely Okay to transfer out of ICU Patient not ready for discharge, need further diagnostic workup to identify what type of infectious process he has D/W RN D/W pt AM labs Postbronch cxr per pulmonary Curtis Stevenson MD Nov 17, 2016 18:21
--- NOTE | 2016-11-17 19:01 | EKG ---
Date Performed: 11/17/2016 Time Performed: 07:11:49 PTAGE: 71 years EKG: SINUS BRADYCARDIA BORDERLINE ECG PREVIOUS TRACING : 11/16/2016 07.23 Compared to prior tracing no significant change DOCTOR: Rich Brooks Interpretating Date/Time 11/17/2016 19:01:09
[2016-11-18] MEDS: VANCOMYCIN 1,000 MG/NS 250 ML IV SCH ×4 (01:29→14:12)
[2016-11-18] MEDS: PIPERACIL-TAZO 3.375 GM PREMIX 50 ML IV SCH ×4 (02:46→20:50)
[2016-11-18 04:00] VITALS: BP 181/74; PULSE 52; RESP 18; TEMP 97.7; O2SAT 93
[2016-11-18] MEDS: HEPARIN SODIUM - SQ 10,000 UNITS/ML VIAL SQ SCH ×2 (05:21→15:56)
[2016-11-18] MEDS: HIGH DOSE INSULIN NOVOLOG SUPPLEMENTAL SCALE SQ SCH ×4 (06:10→20:51)
[2016-11-18 08:00] VITALS: BP 181/84; PULSE 69; RESP 16; TEMP 98.1; O2SAT 93
[2016-11-18 08:30] VITALS: PULSE 54
[2016-11-18] MEDS: FAMOTIDINE 20 MG TAB PO SCH ×2 (08:44→20:50)
[2016-11-18] MEDS: glyBURIDE 5 MG TAB PO SCH ×2 (08:44→20:50)
[2016-11-18] MEDS: SOTALOL HCL 80 MG TAB PO SCH ×2 (08:45→20:51)
[2016-11-18] MEDS: LISINOPRIL 5 MG TAB PO SCH (08:45)
[2016-11-18] MEDS: SODIUM CHLOR 0.9% 1000 ML INJ 1,000 ML IV SCH (09:00)
[2016-11-18] MEDS: methylPREDNISolone SOD SUCC 40 MG/1 ML VIAL IV PUSH SCH (09:00)
[2016-11-18] MEDS: SODIUM CHLORIDE 0.9% FLUSH 10 ML FLUSH IV FLUSH SCH ×2 (09:00→20:50)
[2016-11-18 12:00] VITALS: BP 194/79; PULSE 61; RESP 20; TEMP 97.6; O2SAT 96
[2016-11-18] MEDS: AZITHROMYCIN INJ 500 MG in SODIUM CHLOR 0.9% 250 ML INJ 250 ML IV SCH (14:19)
[2016-11-18] MEDS: hydrALAZINE HCL 20 MG/ML VIAL IV PUSH PRN (14:22)
--- NOTE | 2016-11-18 14:52 | HHI.PR ---
Subjective Remarks 71 YOWM with DM,HTN,Multiple cavitary lesions S/p bronch No endobronchial lesion Minimal secretions No Fever AFB negative Out of ICU. Sitting up in chair. No increased SOB/CP. Objective Objective Results - Vital Signs Date Time Temp Pulse Resp B/P Pulse Ox O2 Delivery O2 Flow Rate FiO2 11/18/16 12:00 97.6 61 20 194/79 96 11/18/16 08:30 54 11/18/16 08:30 54 11/18/16 08:00 98.1 69 16 181/84 93 11/18/16 04:00 97.7 52 18 181/74 93 11/17/16 23:45 98.3 54 17 151/68 94 11/17/16 20:00 98.0 69 24 179/84 98 11/17/16 20:00 69 11/17/16 20:00 91 11/17/16 16:00 98.6 58 18 156/79 98 11/17/16 16:00 88 I/O 11/17/16 11/17/16 11/17/16 11/18/16 11/18/16 11/18/16 07:00 15:00 23:00 07:00 15:00 23:00 Intake Total 743 ml 705 ml 606 ml 730 ml Output Total 700 ml 600 ml 675 ml 200 ml Balance 43 ml 105 ml -69 ml 530 ml Intake Oral 240 ml 380 ml 360 ml 180 ml IV Total 503 ml 325 ml 246 ml 550 ml Output Urine Total 700 ml 600 ml 675 ml 200 ml # Bowel Movements 0 1 Result Diagram: 11/16/16 0340 11/16/16 0340 Other Results Date/Time Procedure Status Source Growth 11/16/16 18:30 Gram Stain - Final Resulted Bronchial Washings Left Upper Lobe 11/16/16 18:30 Bronchial Culture - Preliminary Resulted Staphylococcus Aureus 11/16/16 18:30 Fungal Smear - Final Resulted Bronchial Washings Left Upper Lobe NO FUNGAL ELEMENTS SEEN. 11/16/16 18:30 Fungal Culture Resulted Bronchial Washings Left Upper Lobe Pending 11/16/16 18:30 Acid Fast Stain - Final Resulted Bronchial Washings Left Upper Lobe NO ACID FAST BACILLI SEEN 11/16/16 18:30 Mycobacterial Culture Resulted Bronchial Washings Left Upper Lobe Pending 11/13/16 16:30 Acid Fast Stain Eliseo Batch Sputum Expectorated Sputum Pending 11/13/16 16:30 Mycobacterial Culture Eliseo Batch Sputum Expectorated Sputum Pending ROS General: No: Fatigue, Other HEENT: No: Sore Throat, Dysphagia, Other Cardiac: No: Chest Pain, Edema, Palpitations, Other Pulmonary: Wheezing, No: Cough, SOB, Other GI: No: Abdominal Pain, BM, Diarrhea, N/V, Other /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 He is alert and awake. HEAD: Normocephalic without any lesion or mass noted. . EYES: Perrla. OROPHARYNGEAL: Oropharynx without erythema or edema. MOUTH/THROAT: Tongue midline. NECK: Supple. Trachea midline without deviation. CARDIAC: Regular rhythm, regular rate, S1 and S2 are heard. LUNGS: Occ wheezes. No use of accessory muscles. ABDOMEN: Soft, nontender, no organomegaly or masses. Bowel sounds are heard in all four quadrants. No rebound. No guarding. EXTREMITIES: No CCE. NEUROLOGICAL: Patient mood and affect appropriate. SKIN:Warm and moist PSYCH: Mood and affect appropriate A/P Assessment and Plan Problem List: (1) Sepsis (2) Atrial fibrillation (3) Hypoxia (4) Pneumonia (5) Hyperglycemia due to type 2 diabetes mellitus (6) Elevated blood pressure reading without diagnosis of hypertension (7) Leukocytosis (8) Hyponatremia Assessment/Plan continue with empiric antibiotics poss. TB, vs malignancy, vs atypical PNA appreciate ID input sputum gm stain neg, 3 sets of sputum AFBs negative, Dced droplet precaution Decreased Solumedrol 40 mg IV q day antitussive PRN analgesic prn monitor WBC, trending down Pulmonary input appreciated: S/p bronc: no endobronchial lesions. Bronchial washings pos for stah aureus: sensitivity pending. keep oxygen at 2L/NC to keep sats > 92 duonebs PRN IV steroids BP has been elevated Increase lisinopril to 10mg po qday. continue Hydralazine PRN Accuchecks AC/HS with ISS-blood glucose elevated, likely secondary to steroids Sliding scale increased to medium dose Resumed glyburide no afib noted, SR on monitor appreciate cardiology input, started on Sotalol Sotalol decreased to 40 mg by mouth twice a day due to bradycardia. Echo done, EF 55 to 60% DVT prophylaxis with heparin SQ PUD prophylaxis with Pepcid continue to monitor closely Patient not ready for discharge, need further diagnostic workup to identify what type of infectious process he has D/W RN D/W pt AM labs Postbronch cxr per pulmonary Curtis Stevenson MD Nov 18, 2016 14:52
[2016-11-18 16:00] VITALS: BP 170/75; PULSE 72; RESP 20; TEMP 97.8; O2SAT 93
--- NOTE | 2016-11-18 17:21 | HHI.PR ---
Subjective Remarks 71 YOWM with DM,HTN,Multiple cavitary lesions Had bronch No endobronchial lesion Minimal secretions No Fever AFB negative Objective Vital Signs Vital Signs Date Time Temp Pulse Resp B/P Pulse Ox O2 Delivery O2 Flow Rate FiO2 11/18/16 12:00 97.6 61 20 194/79 96 11/18/16 08:30 54 11/18/16 08:30 54 11/18/16 08:00 98.1 69 16 181/84 93 11/18/16 04:00 97.7 52 18 181/74 93 11/17/16 23:45 98.3 54 17 151/68 94 11/17/16 20:00 98.0 69 24 179/84 98 11/17/16 20:00 69 11/17/16 20:00 91 I/O 11/17/16 11/17/16 11/17/16 11/18/16 11/18/16 11/18/16 07:00 15:00 23:00 07:00 15:00 23:00 Intake Total 743 ml 705 ml 606 ml 730 ml Output Total 700 ml 600 ml 675 ml 200 ml Balance 43 ml 105 ml -69 ml 530 ml Intake Oral 240 ml 380 ml 360 ml 180 ml IV Total 503 ml 325 ml 246 ml 550 ml Output Urine Total 700 ml 600 ml 675 ml 200 ml # Bowel Movements 0 1 Result Diagram: 11/16/1633911/16/16339 Objective Remarks GENERAL: MBMN WM,NAD SKIN: Warm and dry. HEAD: Normocephalic. EYES: No scleral icterus. No injection or drainage. NECK: Supple, trachea midline. No JVD or lymphadenopathy. CARDIOVASCULAR: Regular rate and rhythm without murmurs, gallops, or rubs. RESPIRATORY: Breath sounds equal bilaterally. No accessory muscle use. GASTROINTESTINAL: Abdomen soft, non-tender, nondistended. MUSCULOSKELETAL: No cyanosis, or edema. BACK: Nontender without obvious deformity. No CVA tenderness. A/P Assessment and Plan Multiple lung cavitary lesions Pneumonia DM HTN Plan; Check bronch cytology and bx post bronch cxr Abx per ID Stable on RA Fracisco Sumner MD Nov 18, 2016 17:21
--- NOTE | 2016-11-18 17:30 | PD.CARD.PN ---
Subjective Subjective Remarks No CP or SOB, feels well, eating well Objective Medications Current Medications Medications (Trade) Dose Ordered Sig/Jaden Route Start Time Stop Time Status Last Admin (NS 1000 ml Inj) 1,000 ml @ 30 mls/hr Q24H IV 11/11/16 16:00 11/18/16 09:00 (NS Flush) 2 ml UNSCH PRN IV FLUSH 11/11/16 15:30 (NS Flush) 2 ml BID IV FLUSH 11/11/16 21:00 11/18/16 09:00 (Dulcolax Supp) 10 mg DAILY PRN RECTAL 11/11/16 15:30 (Milk Of Magnesia Liq) 30 ml Q12H PRN PO 11/11/16 15:30 (Senokot) 17.2 mg Q12H PRN PO 11/11/16 15:30 (Heparin Inj) 5,000 units Q12H SQ 11/11/16 17:00 11/18/16 15:56 (Narcan Inj) 0.4 mg UNSCH PRN IV 11/11/16 15:30 Famotidine 20 mg 20 mg BID PO 11/11/16 21:00 11/18/16 08:44 Piperacillin Sod/ Tazobactam Sod 50 ml @ 100 mls/hr Q6H IV 11/11/16 21:00 11/18/16 14:19 (Vancomycin Consult Pharmacy) 0 ml @ 0 mls/hr UNSCH OTHER 11/11/16 19:00 Miscellaneous Information Patient in critical care unit? Ass... Q361D .XX 11/11/16 23:00 (Hycodan Liq) 5 ml Q4H PRN PO 11/12/16 12:00 11/16/16 03:43 Hydralazine HCl 20 mg 20 mg Q4H PRN IV PUSH 11/12/16 14:15 11/18/16 14:22 (Zithromax Inj/ NS 250 ml Inj) 250 ml @ 250 mls/hr Q24H IV 11/12/16 15:00 11/18/16 14:19 (Restoril) 15 mg HS PRN PO 11/12/16 21:00 11/12/16 20:04 (Pill Splitter) 1 ea UNSCH PRN OTHER 11/15/16 11:30 (Betapace) 40 mg Q12HR PO 11/15/16 15:00 11/18/16 08:45 (D50w (Vial) Inj) 25 ml UNSCH PRN IV PUSH 11/15/16 23:15 (Glucagon Inj) 1 mg UNSCH PRN OTHER 11/15/16 23:15 (SoluMEDROL INJ) 40 mg DAILY IV PUSH 11/17/16 09:00 11/18/16 09:00 Glyburide 5 mg 5 mg BID PO 11/16/16 21:00 11/18/16 08:44 (Vancomycin Inj/ NS 250 ml Inj) 250 ml @ 250 mls/hr Q12H IV 11/18/16 02:00 11/18/16 14:12 Miscellaneous Information SPECIFIC LAB TO BE LISA... ONCE ONCE .XX 11/19/16 01:45 11/19/16 01:46 (Prinivil) 10 mg DAILY PO 11/19/16 09:00 Vital Signs / I&O Vital Signs Date Time Temp Pulse Resp B/P Pulse Ox O2 Delivery O2 Flow Rate FiO2 11/18/16 12:00 97.6 61 20 194/79 96 11/18/16 08:30 54 11/18/16 08:30 54 11/18/16 08:00 98.1 69 16 181/84 93 11/18/16 04:00 97.7 52 18 181/74 93 11/17/16 23:45 98.3 54 17 151/68 94 11/17/16 20:00 98.0 69 24 179/84 98 11/17/16 20:00 69 11/17/16 20:00 91 I/O 11/17/16 11/17/16 11/17/16 11/18/16 11/18/16 11/18/16 07:00 15:00 23:00 07:00 15:00 23:00 Intake Total 743 ml 705 ml 606 ml 730 ml Output Total 700 ml 600 ml 675 ml 200 ml Balance 43 ml 105 ml -69 ml 530 ml Intake Oral 240 ml 380 ml 360 ml 180 ml IV Total 503 ml 325 ml 246 ml 550 ml Output Urine Total 700 ml 600 ml 675 ml 200 ml # Bowel Movements 0 1 Physical Exam GENERAL: IN NAD SKIN: Warm and dry. HEAD: Normocephalic. EYES: No scleral icterus. No injection or drainage. NECK: Supple, trachea midline. No JVD or lymphadenopathy. CARDIOVASCULAR: Regular rate and rhythm without murmurs, gallops, or rubs. RESPIRATORY: Breath sounds equal bilaterally. No accessory muscle use. GASTROINTESTINAL: Abdomen soft, non-tender, nondistended. MUSCULOSKELETAL: No cyanosis, or edema. Laboratory Laboratory Tests Test 11/14/16 11/15/16 11/16/16 11/17/16 11:07 21:53 03:40 02:10 Mycoplasma pneumoniae IgG 2.18 index Antibody Mycoplasma pneumoniae IgM 0.16 index Antibody Neutrophils (%) (Auto) 90.7 % Lymphocytes (%) (Auto) 7.1 % Monocytes (%) (Auto) 1.9 % Eosinophils (%) (Auto) 0.0 % Basophils (%) (Auto) 0.3 % Neutrophils # (Auto) 11.7 TH/MM3 Lymphocytes # (Auto) 0.9 TH/MM3 Monocytes # (Auto) 0.2 TH/MM3 Eosinophils # (Auto) 0.0 TH/MM3 Basophils # (Auto) 0.0 TH/MM3 CBC Comment DIFF FINAL Differential Comment Prothrombin Time 12.2 SEC Prothromb Time International 1.1 RATIO Ratio Activated Partial 31.0 SEC Thromboplast Time White Blood Count 14.8 TH/MM3 Red Blood Count 3.82 MIL/MM3 Hemoglobin 10.5 GM/DL Hematocrit 32.6 % Mean Corpuscular Volume 85.4 FL Mean Corpuscular Hemoglobin 27.5 PG Mean Corpuscular Hemoglobin 32.3 % Concent Red Cell Distribution Width 14.9 % Platelet Count 419 TH/MM3 Mean Platelet Volume 10.1 FL Sodium Level 138 MEQ/L Potassium Level 4.2 MEQ/L Chloride Level 107 MEQ/L Carbon Dioxide Level 25.2 MEQ/L Anion Gap 6 MEQ/L Blood Urea Nitrogen 27 MG/DL Creatinine 1.02 MG/DL Estimat Glomerular Filtration 72 ML/MIN Rate Random Glucose 247 MG/DL Calcium Level 8.4 MG/DL Vancomycin Level Trough 23.3 MCG/ML Imaging Last Impressions Chest X-Ray 11/16/16 0000 Signed Impressions: Service Date/Time: Wednesday, November 16, 2016 18:54 - CONCLUSION: Minimal suspected consolidation or atelectasis at the right base and in the left upper lung. Luke Dudley MD CT Angiography 11/11/16 1516 Signed Impressions: Service Date/Time: Friday, November 11, 2016 15:51 - CONCLUSION: 1. The study is negative for pulmonary embolism. 2. Numerous varying size irregular shaped masslike opacities throughout both lungs, middle mediastinal adenopathy, and right hilar adenopathy. Two of the masslike opacities in the left upper lung demonstrate some central gas suggesting possible necrosis. The distribution of the pulmonary abnormalities suggest a hematogenous spread pattern. Differential considerations include neoplasm, septic emboli, and related to inhalational chemical exposure. Errol Glass MD Assessment and Plan Problem List: (1) Atrial fibrillation (2) Hyperglycemia due to type 2 diabetes mellitus (3) Pneumonia (4) Sepsis Assessment and Plan No new cardiac issues. Stays in SR, continue low dose sotalol for SR maintenance. EKG w nl QTc. ID and pulmonary evaluation in progress. Increase activity. Problem Qualifiers (1) Atrial fibrillation: Qualified Code: I48.91 - Atrial fibrillation, unspecified type (2) Hyperglycemia due to type 2 diabetes mellitus: Qualified Code: E11.65 - Type 2 diabetes mellitus with hyperglycemia, unspecified terminal carman insulin use status (3) Pneumonia: Qualified Code: J18.9 - Pneumonia of both lungs due to infectious organism, unspecified part of lung (4) Sepsis: Qualified Code: A41.9 - Sepsis, due to unspecified organism Rich Brooks MD Nov 18, 2016 17:30
[2016-11-18 18:33] LABS: AUTOMATED NEUTROPHIL # 9.9 TH/MM3 (1.8-7.7); BASOPHIL # 0.1 TH/MM3 (0-0.2); BASOPHIL % 0.4 % (0.0-2.0); HEMATOCRIT 34.5 % (39.0-51.0); HEMO FLAGS DIFF FINAL; LYMPH % 9.4 % (9.0-44.0); LYMPHOCYTE # 1.1 TH/MM3 (1.0-4.8); MEAN CORPUSCULAR HEMOGLOBIN 27.5 PG (27.0-34.0); MEAN CORPUSCULAR HGB CONC 31.9 % (32.0-36.0); MONO % 5.6 % (0.0-8.0); NEUT % 84.6 % (16.0-70.0); PLATELET COUNT 418 TH/MM3 (150-450); RED BLOOD COUNT 4.01 MIL/MM3 (4.50-5.90); WHITE BLOOD COUNT 11.7 TH/MM3 (4.0-11.0)
[2016-11-18 19:16] LABS: BICARBONATE 25.3 MEQ/L (21.0-32.0); POTASSIUM 4.2 MEQ/L (3.5-5.1)
[2016-11-18 20:00] VITALS: BP 170/78; PULSE 65; RESP 20; TEMP 98.1; O2SAT 93
[2016-11-19] VITALS (8 sets, daily range): BP systolic 140–187; BP diastolic 67–89; PULSE 55–65; RESP 16–21; TEMP 97.7–98.1; O2SAT 92–98
[2016-11-19] MEDS ORDERED: PHARMACY ORDERED LAB ONE ×2 (01:45→13:45)
[2016-11-19] MEDS: PIPERACIL-TAZO 3.375 GM PREMIX 50 ML IV SCH ×2 (01:51→08:42)
[2016-11-19] MEDS: VANCOMYCIN 1,000 MG/NS 250 ML IV SCH ×2 (02:25)
[2016-11-19 03:49] LABS: BICARBONATE 27.2 MEQ/L (21.0-32.0); POTASSIUM 3.8 MEQ/L (3.5-5.1)
[2016-11-19] MEDS: HEPARIN SODIUM - SQ 10,000 UNITS/ML VIAL SQ SCH ×2 (05:00→18:07)
[2016-11-19] MEDS: HIGH DOSE INSULIN NOVOLOG SUPPLEMENTAL SCALE SQ SCH ×4 (06:07→21:00)
[2016-11-19] MEDS: methylPREDNISolone SOD SUCC 40 MG/1 ML VIAL IV PUSH SCH (08:41)
[2016-11-19] MEDS: SOTALOL HCL 80 MG TAB PO SCH ×2 (08:41→21:50)
[2016-11-19] MEDS: FAMOTIDINE 20 MG TAB PO SCH ×2 (08:41→21:50)
[2016-11-19] MEDS: glyBURIDE 5 MG TAB PO SCH ×2 (08:41→21:50)
[2016-11-19] MEDS: SODIUM CHLORIDE 0.9% FLUSH 10 ML FLUSH IV FLUSH SCH ×2 (08:42→21:00)
[2016-11-19 08:47] LABS: AUTOMATED NEUTROPHIL # 12.3 TH/MM3 (1.8-7.7); BASOPHIL # 0.2 TH/MM3 (0-0.2); BASOPHIL % 1.2 % (0.0-2.0); EOSINOPHIL # 0.2 TH/MM3 (0-0.4); HEMATOCRIT 32.7 % (39.0-51.0); HEMO FLAGS DIFF FINAL; LYMPH % 16.4 % (9.0-44.0); LYMPHOCYTE # 2.8 TH/MM3 (1.0-4.8); MEAN CELL VOLUME 84.7 FL (80.0-100.0); MEAN CORPUSCULAR HEMOGLOBIN 28.2 PG (27.0-34.0); MEAN CORPUSCULAR HGB CONC 33.2 % (32.0-36.0); NEUT % 72.4 % (16.0-70.0); PLATELET COUNT 463 TH/MM3 (150-450); RED BLOOD COUNT 3.86 MIL/MM3 (4.50-5.90); RED CELL DISTRIBUTION WIDTH 15.3 % (11.6-17.2)
[2016-11-19] MEDS ORDERED: LISINOPRIL 5 MG TAB PO SCH (09:00)
[2016-11-19] MEDS: SODIUM CHLOR 0.9% 1000 ML INJ 1,000 ML IV SCH (10:00)
--- NOTE | 2016-11-19 10:40 | MR ---
cc: GENEVIEVE DENNISON DATE 11/16/17 PROCEDURE Bronchoscopy PREOPERATIVE DIAGNOSIS Left upper lobe cavitary lesion. POSTOPERATIVE DIAGNOSIS No endobronchial lesions seen. PROCEDURE IN DETAIL Informed consent was obtained from the patient. procedure and complications including complication of anesthesia, pneumothorax requiring chest tube, bleeding complication, injury to blood vessels, lungs, nerves, arrhythmia explained. He consented for the procedure. The patient was brought to endoscopy suite under general anesthesia, LMA tube was placed by anesthesiologist. Bronchoscopy was done through a LMA tube. Main ching is sharp. Bronchoscope advanced to the right lung, right upper, middle lower lobe were visualized. Small amount of mucous was suctioned. No endobronchial lesion was seen. Then bronchoscope pulled back, advanced to the left lung, left upper, lingula, lower lobe were visualized. Small amount of mucous was suctioned. No endobronchial lesion was seen. Left upper lobe washings, brushing and biopsy was done. Biopsy sent for pathology, brushings sent for cytology. Washings sent for cytology, AFB culture, routine culture and cytology. He tolerated the procedure well. Postprocedure x-ray ordered. MD NILESH Morris/ /6:54 PM /10:36 AM MTDD
--- NOTE | 2016-11-19 11:40 | HHI.PR ---
Subjective Remarks Up in chair Currently on room air, no shortness of breath noted Afebrile Mild systolic hypertension (Ghada Bojorquez) Objective Objective Results - Vital Signs Date Time Temp Pulse Resp B/P Pulse Ox O2 Delivery O2 Flow Rate FiO2 11/19/16 08:00 97.7 56 20 178/85 95 11/19/16 04:00 98.1 55 18 143/67 94 11/19/16 00:00 98.0 58 21 140/67 92 11/18/16 20:00 98.1 65 20 170/78 93 11/18/16 20:00 65 11/18/16 16:00 97.8 72 20 170/75 93 11/18/16 12:00 97.6 61 20 194/79 96 I/O 11/18/16 11/18/16 11/18/16 11/19/16 11/19/16 11/19/16 07:00 15:00 23:00 07:00 15:00 23:00 Intake Total 730 ml Output Total 200 ml Balance 530 ml Intake Oral 180 ml IV Total 550 ml Output Urine Total 200 ml # Bowel Movements 1 (Ghada Bojorquez) Result Diagram: 11/19/16 0754 11/19/16 0130 ROS General: Fatigue, Weakness (gradual improvement and 10 use), Other (10 point ROS done, pending bronchial washings, otherwise systems unremarkable) Pulmonary: Cough (improvement), SOB (none at rest) GI: BM (bowel regimen) Skin: Other (hypertension, monitored) (Ghada Bojorquez) Physical Exam Physical Exam PHYSICAL EXAMINATION GENERAL: This is a well-developed, well-nourished slim male who appears to be in no acute distress. He is alert and awake, sitting up in chair HEAD: Normocephalic without any lesion or mass noted. Facial features appear symmetric. OROPHARYNGEAL: Oropharynx without erythema or edema. NECK: Supple. No nuchal rigidity or lymphadenopathy. Trachea midline without deviation. CARDIAC: Regular rhythm, regular rate, S1 and S2 are heard. Murmur []; no gallops or rubs. LUNGS: Diminished to auscultation bilaterally. No rhonchi or wheezes noted, ABDOMEN: Soft, nontender, no organomegaly or masses. Bowel sounds are heard in all four quadrants. No rebound. No guarding. EXTREMITIES: no edema. Pulses equal bilateral. NEUROLOGICAL: Patient mood and affect appropriate. No focal deficit SKIN:Warm and moist Objective Remarks I'm so ready to go home (Ghada Bojorquez) A/P Assessment and Plan continue with antibiotics, per ID input, appreciate poss. TB, vs malignancy, vs atypical PNA sputum gm stain neg, 3 sets of sputum AFBs negative, Decreased Solumedrol 40 mg IV q day monitor WBC, currently increased today but could be secondary to IV steroid use Pulmonary input appreciated: S/p bronc: no endobronchial lesions. Bronchial washings pos for stah aureus: sensitivity pending. Still pending some bronchial washings for fungus Patient now on room air without shortness of breath duonebs PRN IV steroids BP has been elevated systolic in the 170s Increase lisinopril to 20mg po qday. And Betapace continue Hydralazine PRN Accuchecks AC/HS with ISS-blood glucose elevated, likely secondary to steroids Sliding scale increased to medium dose Resumed glyburide SR on monitor appreciate cardiology input, started on Sotalol Sotalol decreased to 40 mg by mouth twice a day due to bradycardia. Echo done, EF 55 to 60% DVT prophylaxis with heparin SQ PUD prophylaxis with Pepcid Continue to increase activity in room. Patient discharge, depends on diagnostic workup to identify what type of infectious process he has, currently labs are still pending on bronchial washings Appreciate continued pulmonary input D/W RN D/W pt Discussed with Dr. Wallace, seen on his behalf (Ghada Bojorquez) Assessment and Plan pt is seen &b examined d/w PT Sputum c/s Staph a /MSSA ? , Mat bx changed to IV Ancef by ID (Cheryl Wallace MD) Ghada Bojorquez November 19, 2016 11:40 Cheryl Wallace MD November 19, 2016 12:34
--- NOTE | 2016-11-19 12:15 | HHI.IDPN ---
Note Infectious Disease Note Patient says he feels better. Little cough. Bronch AFB - No AFB seen. Bronch culture MSSA. Afebrile. PPD non reactive. Mycoplasma serology - neg IgM, mildly elevated IgM. WBC still elevated. PAST MEDICAL HISTORY 1. Diabetes mellitus. 2. History of diverticulitis. 3. Right shoulder surgery. 4. History of colectomy. 5. Gastroesophageal reflux disease. ALLERGIES NO KNOWN DRUG ALLERGIES. ANTIBIOTICS: Vancomycin Azithromycin Pip/Tazo. SOCIAL HISTORY No tobacco use. No alcohol use. Occasional marijuana use. The patient denies IV drug use. OBJECTIVE: Vital Signs Date Time Temp Pulse Resp B/P Pulse Ox O2 Delivery O2 Flow Rate FiO2 11/19/16 08:00 97.7 56 20 178/85 95 11/19/16 04:00 98.1 55 18 143/67 94 11/19/16 00:00 98.0 58 21 140/67 92 11/18/16 20:00 98.1 65 20 170/78 93 11/18/16 20:00 65 11/18/16 16:00 97.8 72 20 170/75 93 11/18/16 11/18/16 11/19/16 15:00 23:00 07:00 # Bowel Movements 1 Laboratory Tests Test 11/18/16 11/19/16 18:17 07:54 White Blood Count 11.7 TH/MM3 17.0 TH/MM3 Red Blood Count 4.01 MIL/MM3 3.86 MIL/MM3 Hemoglobin 11.0 GM/DL 10.9 GM/DL Hematocrit 34.5 % 32.7 % Mean Corpuscular Volume 86.0 FL 84.7 FL Mean Corpuscular Hemoglobin 27.5 PG 28.2 PG Mean Corpuscular Hemoglobin 31.9 % 33.2 % Concent Red Cell Distribution Width 15.0 % 15.3 % Platelet Count 418 TH/MM3 463 TH/MM3 Mean Platelet Volume 9.3 FL 9.6 FL Neutrophils (%) (Auto) 84.6 % 72.4 % Lymphocytes (%) (Auto) 9.4 % 16.4 % Monocytes (%) (Auto) 5.6 % 9.0 % Eosinophils (%) (Auto) 0.0 % 1.0 % Basophils (%) (Auto) 0.4 % 1.2 % Neutrophils # (Auto) 9.9 TH/MM3 12.3 TH/MM3 Lymphocytes # (Auto) 1.1 TH/MM3 2.8 TH/MM3 Monocytes # (Auto) 0.7 TH/MM3 1.5 TH/MM3 Eosinophils # (Auto) 0.0 TH/MM3 0.2 TH/MM3 Basophils # (Auto) 0.1 TH/MM3 0.2 TH/MM3 CBC Comment DIFF FINAL DIFF FINAL Differential Comment Laboratory Tests Test 11/18/16 11/19/16 18:17 01:30 Sodium Level 135 MEQ/L 142 MEQ/L Potassium Level 4.2 MEQ/L 3.8 MEQ/L Chloride Level 102 MEQ/L 107 MEQ/L Carbon Dioxide Level 25.3 MEQ/L 27.2 MEQ/L Anion Gap 8 MEQ/L 8 MEQ/L Blood Urea Nitrogen 37 MG/DL 30 MG/DL Creatinine 1.86 MG/DL 1.31 MG/DL Estimat Glomerular Filtration 36 ML/MIN 54 ML/MIN Rate Random Glucose 448 MG/DL 140 MG/DL Calcium Level 8.4 MG/DL 8.5 MG/DL Microbiology Date/Time Procedure Status Source Growth 11/16/16 18:30 Gram Stain - Final Resulted Bronchial Washings Left Upper Lobe 11/16/16 18:30 Bronchial Culture - Preliminary Resulted Staphylococcus Aureus 11/16/16 18:30 Acid Fast Stain - Final Resulted Bronchial Washings Left Upper Lobe NO ACID FAST BACILLI SEEN 11/16/16 18:30 Mycobacterial Culture Resulted Bronchial Washings Left Upper Lobe Pending 11/16/16 18:30 Fungal Smear - Final Resulted Bronchial Washings Left Upper Lobe NO FUNGAL ELEMENTS SEEN. 11/16/16 18:30 Fungal Culture Resulted Bronchial Washings Left Upper Lobe Pending IMAGING: Chest X-Ray 11/15/16 0600 Signed Impressions: Service Date/Time: October 02:33 - CONCLUSION: There continues to be scattered bilateral pulmonary infiltrates. Adis Puri MD CT Angiography 11/11/16 1516 Signed Impressions: Service Date/Time: Friday, November 11, 2016 15:51 - CONCLUSION: 1. The study is negative for pulmonary embolism. 2. Numerous varying size irregular shaped masslike opacities throughout both lungs, middle mediastinal adenopathy, and right hilar adenopathy. Two of the masslike opacities in the left upper lung demonstrate some central gas suggesting possible necrosis. The distribution of the pulmonary abnormalities suggest a hematogenous spread pattern. Differential considerations include neoplasm, septic emboli, and related to inhalational chemical exposure. Errol Glass MD Chest X-Ray 11/11/16 1324 Signed Impressions: Service Date/Time: Friday, November 11, 2016 14:05 - CONCLUSION: Patchy areas of suspected consolidation or mass bilaterally as described above. The area in the left upper lobe is potentially cavitary. These areas could be further evaluated with a CT examination of the chest. Luke Dudley MD PHYSICAL EXAMINATION GENERAL: No acute distress. Awake and alert and oriented. HEENT: No icterus. Oropharynx no visible lesions. NECK: Supple. No adenopathy. LUNGS: Decreased breath sounds same. HEART: Regular rate and rhythm without murmurs, rubs or gallops. ABDOMEN: Bowel sounds present, soft, nontender. EXTREMITIES: No clubbing or cyanosis or edema. NEUROLOGIC: Nonfocal. SKIN: No rash. PSYCHIATRIC: Calm and cooperative. IMPRESSION 1. Pneumonia. Possible atypical pneumonia versus tuberculosis versus septic pulmonary lesions. AFB negative smear. 2. Rule out malignancy. 3. Leukocytosis suggesting possible infection as cause of pulmonary lesions. However could also be other etiology - Malignancy. RECOMMENDATIONS 1. Stop piperacillin / Tazobactam. 2. Stop Azithromycin. 3. Stop Vancomycin. 4. Begin Ancef. 5. Follow bronch. pathology. 6. Monitor white blood cell count. 7. Discontinue isolation. Further ID disposition when pathology report become available. Jeffery Granados MD November 19, 2016 12:15
[2016-11-19] MEDS: ceFAZolin 2 GM PREMIX 50 ML IV SCH ×2 (12:47→21:48)
--- NOTE | 2016-11-19 16:12 | PD.CARD.PN ---
Subjective Subjective Remarks No CP or SOB, feels fine Objective Medications Current Medications Medications (Trade) Dose Ordered Sig/Jaden Route Start Time Stop Time Status Last Admin (NS 1000 ml Inj) 1,000 ml @ 30 mls/hr Q24H IV 11/11/16 16:00 11/18/16 09:00 (NS Flush) 2 ml UNSCH PRN IV FLUSH 11/11/16 15:30 (NS Flush) 2 ml BID IV FLUSH 11/11/16 21:00 11/19/16 08:42 (Dulcolax Supp) 10 mg DAILY PRN RECTAL 11/11/16 15:30 (Milk Of Magnesia Liq) 30 ml Q12H PRN PO 11/11/16 15:30 (Senokot) 17.2 mg Q12H PRN PO 11/11/16 15:30 (Heparin Inj) 5,000 units Q12H SQ 11/11/16 17:00 11/19/16 05:00 (Narcan Inj) 0.4 mg UNSCH PRN IV 11/11/16 15:30 (Pepcid) 20 mg BID PO 11/11/16 21:00 11/19/16 08:41 Miscellaneous Information Patient in critical care unit? Ass... Q361D .XX 11/11/16 23:00 (Hycodan Liq) 5 ml Q4H PRN PO 11/12/16 12:00 11/16/16 03:43 (Apresoline Inj) 20 mg Q4H PRN IV PUSH 11/12/16 14:15 11/18/16 14:22 (Restoril) 15 mg HS PRN PO 11/12/16 21:00 11/12/16 20:04 (Pill Splitter) 1 ea UNSCH PRN OTHER 11/15/16 11:30 (Betapace) 40 mg Q12HR PO 11/15/16 15:00 11/19/16 08:41 (D50w (Vial) Inj) 25 ml UNSCH PRN IV PUSH 11/15/16 23:15 (Glucagon Inj) 1 mg UNSCH PRN OTHER 11/15/16 23:15 (Diabeta) 5 mg BID PO 11/16/16 21:00 11/19/16 08:41 Lisinopril 20 mg 20 mg DAILY PO 11/20/16 09:00 (Ancef 2 Gm Premix) 50 ml @ 100 mls/hr Q8H IV 11/19/16 13:00 11/19/16 12:47 Vital Signs / I&O Vital Signs Date Time Temp Pulse Resp B/P Pulse Ox O2 Delivery O2 Flow Rate FiO2 11/19/16 12:00 98.0 63 20 168/83 94 11/19/16 08:02 55 11/19/16 08:00 97.7 56 20 178/85 95 11/19/16 04:00 98.1 55 18 143/67 94 11/19/16 00:00 98.0 58 21 140/67 92 11/18/16 20:00 98.1 65 20 170/78 93 11/18/16 20:00 65 I/O 11/18/16 11/18/16 11/18/16 11/19/16 11/19/16 11/19/16 07:00 15:00 23:00 07:00 15:00 23:00 Intake Total 730 ml Output Total 200 ml Balance 530 ml Intake Oral 180 ml IV Total 550 ml Output Urine Total 200 ml # Bowel Movements 1 Physical Exam GENERAL: IN NAD SKIN: Warm and dry. HEAD: Normocephalic. EYES: No scleral icterus. No injection or drainage. NECK: Supple, trachea midline. No JVD or lymphadenopathy. CARDIOVASCULAR: Regular rate and rhythm without murmurs, gallops, or rubs. RESPIRATORY: Breath sounds equal bilaterally. No accessory muscle use. GASTROINTESTINAL: Abdomen soft, non-tender, nondistended. MUSCULOSKELETAL: No cyanosis, or edema. Laboratory Laboratory Tests Test 11/18/16 11/19/16 11/19/16 18:17 01:30 07:54 White Blood Count 11.7 TH/MM3 17.0 TH/MM3 Red Blood Count 4.01 MIL/MM3 3.86 MIL/MM3 Hemoglobin 11.0 GM/DL 10.9 GM/DL Hematocrit 34.5 % 32.7 % Mean Corpuscular Volume 86.0 FL 84.7 FL Mean Corpuscular Hemoglobin 27.5 PG 28.2 PG Mean Corpuscular Hemoglobin 31.9 % 33.2 % Concent Red Cell Distribution Width 15.0 % 15.3 % Platelet Count 418 TH/MM3 463 TH/MM3 Mean Platelet Volume 9.3 FL 9.6 FL Neutrophils (%) (Auto) 84.6 % 72.4 % Lymphocytes (%) (Auto) 9.4 % 16.4 % Monocytes (%) (Auto) 5.6 % 9.0 % Eosinophils (%) (Auto) 0.0 % 1.0 % Basophils (%) (Auto) 0.4 % 1.2 % Neutrophils # (Auto) 9.9 TH/MM3 12.3 TH/MM3 Lymphocytes # (Auto) 1.1 TH/MM3 2.8 TH/MM3 Monocytes # (Auto) 0.7 TH/MM3 1.5 TH/MM3 Eosinophils # (Auto) 0.0 TH/MM3 0.2 TH/MM3 Basophils # (Auto) 0.1 TH/MM3 0.2 TH/MM3 CBC Comment DIFF FINAL DIFF FINAL Differential Comment Sodium Level 135 MEQ/L 142 MEQ/L Potassium Level 4.2 MEQ/L 3.8 MEQ/L Chloride Level 102 MEQ/L 107 MEQ/L Carbon Dioxide Level 25.3 MEQ/L 27.2 MEQ/L Anion Gap 8 MEQ/L 8 MEQ/L Blood Urea Nitrogen 37 MG/DL 30 MG/DL Creatinine 1.86 MG/DL 1.31 MG/DL Estimat Glomerular Filtration 36 ML/MIN 54 ML/MIN Rate Random Glucose 448 MG/DL 140 MG/DL Calcium Level 8.4 MG/DL 8.5 MG/DL Imaging Last Impressions Chest X-Ray 11/16/16 0000 Signed Impressions: Service Date/Time: Wednesday, November 16, 2016 18:54 - CONCLUSION: Minimal suspected consolidation or atelectasis at the right base and in the left upper lung. Luke Dudley MD CT Angiography 11/11/16 1516 Signed Impressions: Service Date/Time: Friday, November 11, 2016 15:51 - CONCLUSION: 1. The study is negative for pulmonary embolism. 2. Numerous varying size irregular shaped masslike opacities throughout both lungs, middle mediastinal adenopathy, and right hilar adenopathy. Two of the masslike opacities in the left upper lung demonstrate some central gas suggesting possible necrosis. The distribution of the pulmonary abnormalities suggest a hematogenous spread pattern. Differential considerations include neoplasm, septic emboli, and related to inhalational chemical exposure. Errol Glass MD Assessment and Plan Problem List: (1) Atrial fibrillation (2) Hyperglycemia due to type 2 diabetes mellitus (3) Pneumonia (4) Sepsis Assessment and Plan No new cardiac issues. Stays in SR, continue low dose sotalol for SR maintenance. EKG w nl QTc. ID and pulmonary evaluation in progress, dx w severe pneumonia. Increase activity. Anticipate discharge home soon. Problem Qualifiers (1) Atrial fibrillation: Qualified Code: I48.91 - Atrial fibrillation, unspecified type (2) Hyperglycemia due to type 2 diabetes mellitus: Qualified Code: E11.65 - Type 2 diabetes mellitus with hyperglycemia, unspecified half-way insulin use status (3) Pneumonia: Qualified Code: J18.9 - Pneumonia of both lungs due to infectious organism, unspecified part of lung (4) Sepsis: Qualified Code: A41.9 - Sepsis, due to unspecified organism Rich Brooks MD November 19, 2016 16:12
--- NOTE | 2016-11-19 17:10 | HHI.PR ---
Subjective Remarks 71 YOWM with DM,HTN,Multiple cavitary lesions No endobronchial lesion No Fever AFB negative " I feel fabulous' Up and ambulates Objective Vital Signs Vital Signs Date Time Temp Pulse Resp B/P Pulse Ox O2 Delivery O2 Flow Rate FiO2 11/19/16 12:00 98.0 63 20 168/83 94 11/19/16 08:02 55 11/19/16 08:00 97.7 56 20 178/85 95 11/19/16 04:00 98.1 55 18 143/67 94 11/19/16 00:00 98.0 58 21 140/67 92 11/18/16 20:00 98.1 65 20 170/78 93 11/18/16 20:00 65 I/O 11/18/16 11/18/16 11/18/16 11/19/16 11/19/16 11/19/16 07:00 15:00 23:00 07:00 15:00 23:00 Intake Total 730 ml Output Total 200 ml Balance 530 ml Intake Oral 180 ml IV Total 550 ml Output Urine Total 200 ml # Bowel Movements 1 Result Diagram: 11/19/16 0754 11/19/16 0130 Objective Remarks GENERAL: MBMN WM,NAD SKIN: Warm and dry. HEAD: Normocephalic. EYES: No scleral icterus. No injection or drainage. NECK: Supple, trachea midline. No JVD or lymphadenopathy. CARDIOVASCULAR: Regular rate and rhythm without murmurs, gallops, or rubs. RESPIRATORY: Breath sounds equal bilaterally. No accessory muscle use. GASTROINTESTINAL: Abdomen soft, non-tender, nondistended. MUSCULOSKELETAL: No cyanosis, or edema. BACK: Nontender without obvious deformity. No CVA tenderness. A/P Assessment and Plan Multiple lung cavitary lesions Pneumonia DM HTN Plan; Check bronch cytology and bx Abx per ID Stable on RA Fracisco Sumner MD November 19, 2016 17:10
[2016-11-20] VITALS: BP 151/72; PULSE 59; RESP 14; TEMP 98.5; O2SAT 98
[2016-11-20 04:00] VITALS: BP 154/74; PULSE 53; RESP 16; TEMP 97.1; O2SAT 98
[2016-11-20] MEDS: ceFAZolin 2 GM PREMIX 50 ML IV SCH ×2 (04:20→12:12)
[2016-11-20] MEDS: HEPARIN SODIUM - SQ 10,000 UNITS/ML VIAL SQ SCH (04:21)
[2016-11-20] MEDS: hydrALAZINE HCL 20 MG/ML VIAL IV PUSH PRN (05:00)
[2016-11-20] MEDS: HIGH DOSE INSULIN NOVOLOG SUPPLEMENTAL SCALE SQ SCH ×2 (05:36→12:11)
[2016-11-20 07:38] VITALS: PULSE 55
[2016-11-20 08:00] VITALS: BP 171/82; PULSE 57; RESP 20; TEMP 97.6; O2SAT 95
[2016-11-20] MEDS: FAMOTIDINE 20 MG TAB PO SCH (08:42)
[2016-11-20] MEDS: SOTALOL HCL 80 MG TAB PO SCH (08:42)
[2016-11-20] MEDS: glyBURIDE 5 MG TAB PO SCH (08:42)
[2016-11-20] MEDS: SODIUM CHLORIDE 0.9% FLUSH 10 ML FLUSH IV FLUSH SCH (08:43)
[2016-11-20] MEDS ORDERED: LISINOPRIL 20 MG TAB PO SCH ×2 (09:00→21:00)
--- NOTE | 2016-11-20 11:14 | HHI.PR ---
Subjective Remarks resting in bed Currently on room air, no shortness of breath noted Afebrile Mild systolic hypertension Alert Hoping to go home soon (Ghada Bojorquez) Objective Objective Results - Vital Signs Date Time Temp Pulse Resp B/P Pulse Ox O2 Delivery O2 Flow Rate FiO2 11/20/16 08:00 97.6 57 20 171/82 95 11/20/16 07:38 55 11/20/16 04:00 97.1 53 16 154/74 98 11/20/16 00:00 98.5 59 14 151/72 98 11/19/16 21:04 64 11/19/16 20:00 97.9 65 16 178/80 98 11/19/16 16:00 97.7 64 20 187/89 95 11/19/16 12:00 98.0 63 20 168/83 94 I/O 11/19/16 11/19/16 11/19/16 11/20/16 11/20/16 11/20/16 07:00 15:00 23:00 07:00 15:00 23:00 Intake Total 600 ml 590 ml 490 ml Balance 600 ml 590 ml 490 ml Intake Oral 600 ml 240 ml 240 ml IV Total 350 ml 250 ml # Voids 1 2 # Bowel Movements 1 0 0 (Ghada Bojorquez) Result Diagram: 11/19/16 0754 11/19/16 0130 ROS General: Other (10 point ROS done positives noted in record otherwise systems are negative) HEENT: Other (left eye film, mild erythema, draining) Pulmonary: Cough (occasional), SOB (minimal) GI: BM (no issues, bowel regimen) (Ghada Bojorquez) Physical Exam Physical Exam PHYSICAL EXAMINATION GENERAL: This is a well-developed, well-nourished male who appears to be in no acute distress. He is alert and awake, HEAD: Normocephalic without any lesion or mass noted. Facial features appear symmetric. Left thigh mild erythema with film appearance, draining at times OROPHARYNGEAL: Oropharynx without erythema or edema. NECK: Supple. No nuchal rigidity or lymphadenopathy. Trachea midline without deviation. CARDIAC: Regular rhythm, regular rate, S1 and S2 are heard. Murmur []; no gallops or rubs. LUNGS: Clear to auscultation bilaterally. No wheeze, No use of accessory muscles on inspiration or expiration. Occasional cough ABDOMEN: Soft, nontender, no organomegaly or masses. Bowel sounds are heard in all four quadrants. No rebound. No guarding. EXTREMITIES: no edema. Pulses equal bilateral. NEUROLOGICAL: Patient mood and affect appropriate. No focal deficit SKIN:Warm and moist Objective Remarks I'm really hoping to go home soon (Ghada Bojorquez) A/P Assessment and Plan continue with antibiotics, per ID input, appreciate New leukocytosis seen on labs yesterday, IV antibiotics changed to Ancef and DC' d others poss. TB, vs malignancy, vs atypical PNA sputum gm stain neg, 3 sets of sputum AFBs negative, still pending some micro-testing monitor WBC, currently increased today but could be secondary to steroids. In the process of weaning. Now on by mouth dose Pulmonary input appreciated: S/p bronc: no endobronchial lesions. Bronchial washings pos for stah aureus: sensitivity pending. Still pending some bronchial washings for fungus Patient now on room air without shortness of breath duonebs PRN We will change steroids to by mouth dose Hypertension, mild systolic elevation BP has been elevated systolic in the 170s Increase lisinopril to 20mg po to twice a day And Betapace continue Hydralazine PRN Accuchecks AC/HS with ISS-blood glucose elevated, likely secondary to steroids Sliding scale increased to medium dose Resumed glyburide SR on monitor appreciate cardiology input, started on Sotalol Sotalol decreased to 40 mg by mouth twice a day due to bradycardia. Echo done, EF 55 to 60% DVT prophylaxis with heparin SQ PUD prophylaxis with Pepcid Continue to increase activity in room. Patient tolerating well Patient discharge, depends on diagnostic workup to identify what type of infectious process he has, currently labs are still pending on bronchial washings Appreciate continued pulmonary input D/W RN D/W pt Discussed with Dr. Wallace, seen on his behalf Discussed With: Nurse, Family (patient), Other (Dr. wallace, seen on his behalf) (Ghada Bojorquez) Assessment and Plan pt is seen & Examined eager to go home path report is still {P}, called path dept ,left my cell number d/w Dr agnes gomez to d./c home path report to be followed as out pt basis at his office d/w Dr self , jason to d/c home on po keflex x 10 days d/w PT in detail /importance of f/u was explained in detail , he verbalized understanding d/w ghada franco above d/c home today see orders see [facility] f/u pcp/pulmonary (Cheryl Wallace MD) Ghada Bojorquez November 20, 2016 11:14 Cheryl Wallace MD November 20, 2016 12:55
[2016-11-20] MEDS ORDERED: METOPROLOL TARTRATE 25 MG TAB PO SCH (11:15)
[2016-11-20 12:00] VITALS: BP 183/84; PULSE 63; RESP 20; TEMP 98.1; O2SAT 96
[2016-11-20] MEDS ORDERED: GENTAMICIN SULFATE 0.3% OPHT SOLN 5 ML BTL LEFT EYE SCH (12:00)
[2016-11-20] MEDS ORDERED: CEPH-460 PO (12:59)
[2016-11-20] MEDS ORDERED: ASPI325T33 PO (12:59)
[2016-11-20] MEDS ORDERED: LISI-515 PO (12:59)
[2016-11-20] MEDS ORDERED: SOTA80 PO (12:59)
[2016-11-20] MEDS ORDERED: PRED20 PO (12:59)
[2016-11-21] MEDS ORDERED: predniSONE 20 MG TAB PO SCH (09:00)
--- NOTE | 2016-11-24 18:13 | HHI.DS ---
Discharge Summary Admission Date Nov 11, 2016 at 15:25 Discharge Date: November 20, 2016 Admitting Diagnosis Sepsis, hyperglycemia Brief History This was a pleasant 71-year-old white male who had been in his usual state of health up until approximately a week to a week and a half ago. 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 Before his illness he worked approximately 60 hours that week and the week before he worked approximately 80 hours. He had an acute onset of decreased energy with cough and weakness. The patient noted that he was having copious amounts of sputum which was brown in color mixed with some cream color and yellow mixed with cream color. The patient was unable to sleep secondary to his coughing and his productive sputum. The patient was a known diabetic and was due to see his primary care physician and get his medications refilled. The patient was at home sick and unable to go to the doctor's office, therefore, he was not given any renewal on his prescriptions until blood work was drawn. The patient finally went to the urgent care , was seen to be tachycardic around 153 and was sent straight to the emergency room for a possible pneumonia. The patient was alert and oriented and a good historian, and was trying to get over his acute onset of respiratory illness but was unable to shake it off. Now the patient had symptoms of polyuria, polydipsia, polyphagia. Blood sugar initially was too high for the machine over at urgent care. First blood sugar via the lab was 636. Lactic acid was 3. The patient denies any chest pain. Denies any headache. He has had fever, congestion, cough and wheezing. Imaging Last Impressions Chest X-Ray 11/16/16 0000 Signed Impressions: Service Date/Time: Wednesday, November 16, 2016 18:54 - CONCLUSION: Minimal suspected consolidation or atelectasis at the right base and in the left upper lung. Luke Dudley MD CT Angiography 11/11/16 1516 Signed Impressions: Service Date/Time: Friday, November 11, 2016 15:51 - CONCLUSION: 1. The study is negative for pulmonary embolism. 2. Numerous varying size irregular shaped masslike opacities throughout both lungs, middle mediastinal adenopathy, and right hilar adenopathy. Two of the masslike opacities in the left upper lung demonstrate some central gas suggesting possible necrosis. The distribution of the pulmonary abnormalities suggest a hematogenous spread pattern. Differential considerations include neoplasm, septic emboli, and related to inhalational chemical exposure. Errol Glass MD PE at Discharge General General Appearance: Well Developed, Well Nourished, No Acute Distress, Comfortable, Pale Eyes Eye Exam: Pupils Equal, Pupils Reactive Ears & Nose Ears & Nose Exam: Nasal Mucosa [place] Throat Throat Exam: Oral Mucosa [place] & Moist Neck Neck Exam: Neck Supple, Trachea Midline Pulmonary Resp Exam: Rhonchi Resp Remarks Minimal expiratory wheezes Cardiology CV Exam: Regular, Normal Sinus Rhythm (heart rate 60s) Gastrointestinal/Abdomen GI Exam: Soft, Non-Tender, Bowel Sounds Present, Non-Distended Musculoskeletal MS Exam: Joints Intact Integumentary Skin Exam: Clear, Warm, Dry, Intact Extremeties Extremities Exam: No Edema Neurologic Neuro Exam: Alert, Awake, Oriented, Speech Clear, Moving All Extremities, No Focal Deficits Psychiatric Psych Exam: Appropriate Responses VTE Prophylaxis VTE Prophylaxis Meds: Heparin PUD Prophylasis PUD Prophylaxis: Protonix Hospital Course In the emergency room the patient was initially placed on ECG monitoring. Labs were drawn. He was connected to oxygen. Was checked for flu A and B and was given hydration with a bolus of sodium chloride. The patient was also given a dose of vancomycin and Zosyn IV and 6 units of Regular insulin times one dose. These are the diagnosis used to treat patient during this hospital stay. (1) Sepsis (2) Atrial fibrillation (3) Hypoxia (4) Pneumonia (5) Hyperglycemia due to type 2 diabetes mellitus (6) Elevated blood pressure reading without diagnosis of hypertension (7) Leukocytosis (8) Hyponatremia Patient was placed in ICU, due to acute respiratory compromise and insufficiency. and SOB Pna continue with empiric antibiotics Initial pulmonary testing was reviewed as poss. TB, vs malignancy, vs atypical PNA appreciate ID input, for antibiotic coverage and R/O TB sputum gm stain neg, c/s [p] sputum for AFB neg x 2 negative, 3rd pending continue with isolation for now , Respiratory Given IV steriods. When more stable, decrease doses to PO, then d/c. on discharge. antitussive PRN analgesic prn monitor WBC, trending down Pulmonary input appreciated, Dr. Sumner plans bronchoscopy and biopsy today Followed patient throughout stay , but initiate plan was to r/o TB and treat pna. Patient responded to treatment, but was monitored very closely with labs, vitals , and meds . keep oxygen at 2L/NC to keep sats > 92 duonebs PRN IV steroids BP has been elevated off and on with vitals check. -improved with medical management. continue Hydralazine PRN continue Lisinopril 2.5 mg po daily Accuchecks AC/HS with ISS-blood glucose up to 400 last night, likely secondary to steroids Sliding scale increase to medium dose Resume glyburide no afib noted, SR on monitor appreciate cardiology input, started on Sotalol Sotalol decreased to 40 mg by mouth twice a day due to bradycardia. Echo done, EF 55 to 60% Cardiology followed until HR and BP were stable. DVT prophylaxis with heparin SQ PUD prophylaxis with Pepcid continue to monitor closely needed further diagnostic workup to identify what type of infectious process he has even after tranfered out of ICU Once patient was more stable with SOB and pna, activity was increased Appetite improved. and patient could maintain on rm air. Increased hospital stay was due to pending labs studies and r/o TB. After 1 week on pending labs, patient was thought to have intensive pna, and no TB. Follow up set up for OP . Pt Condition on Discharge: Stable Discharge Disposition: Discharge Home Discharge Instructions DIET: Follow Instructions for: Heart Healthy Diet, Diabetic Diet Fluid Restrictions: none Activities you can perform: Regular-No Restrictions Follow up Referrals: PCP Follow-up - 1 Week Pulmonology - 3 Weeks New Medications: Aspirin DR (Aspirin EC) 325 Mg Tabdr 325 MG PO DAILY a fib #30 Ref 0 TAB Cephalexin (Keflex) 500 Mg Cap 500 MG PO Q6H Infection #40 Ref 0 CAP Lisinopril (Lisinopril) 20 Mg Tab 20 MG PO BID HTN #60 TAB Prednisone (Prednisone) 20 Mg Tab 10 MG PO DAILY COPD #2 TAB Sotalol (Sorine) 80 Mg Tab 40 MG PO Q12HR a fib #60 TAB Continued Medications: Glyburide (Glyburide) 5 Mg Tab 5 MG PO BID Take with meals at the same time each day Blood Sugar Management # 60 Ref 0 TAB Metformin (Metformin) 1,000 Mg Tab 1000 MG PO BIDPC With meals Blood Sugar Management #60 Ref 0 TAB Ghada Bojorquez November 24, 2016 18:13 325 MG PO DAILY a fib #30 Ref 0 TAB Cephalexin (Keflex) 500 Mg Cap 500 MG PO Q6H Infection #40 Ref 0 CAP Lisinopril (Lisinopril) 20 Mg Tab 20 MG PO BID HTN #60 TAB Prednisone (Prednisone) 20 Mg Tab 10 MG PO DAILY COPD #2 TAB Sotalol (Sorine) 80 Mg Tab 40 MG PO Q12HR a fib #60 TAB Continued Medications: Glyburide (Glyburide) 5 Mg Tab 5 MG PO BID Take with meals at the same time each day Blood Sugar Management # 60 Ref 0 TAB Metformin (Metformin) 1,000 Mg Tab 1000 MG PO BIDPC With meals Blood Sugar Management #60 Ref 0 TAB Ghada Bojorquez November 24, 2016 18:13
== END 2016-11-20 15:47 | disposition home or self-care (01) | DRG 871 ==
LOC: NEPC 13:13 → NEDA 15:25 → HIMW 17:00 → N04A 11-17 21:51
PROVIDERS: ADMIT Specialist; ATTEND Specialist
PROC: 0BB88ZX Excision of Left Upper Lobe Bronchus, Via Natural or Artificial Opening Endoscopic, Diagnostic (ICD-10-PCS; principal; 2016-11-16 18:10)
DX: A41.9 Sepsis, unspecified organism (principal); J18.9 Pneumonia, unspecified organism; E44.1 Mild protein-calorie malnutrition; E87.1 Hypo-osmolality and hyponatremia; I48.0 Paroxysmal atrial fibrillation; E11.65 Type 2 diabetes mellitus with hyperglycemia; D63.8 Anemia in other chronic diseases classified elsewhere; R00.1 Bradycardia, unspecified; R09.02 Hypoxemia; K21.9 Gastro-esophageal reflux disease without esophagitis; N28.9 Disorder of kidney and ureter, unspecified; R59.0 Localized enlarged lymph nodes; E83.51 Hypocalcemia; F12.90 Cannabis use, unspecified, uncomplicated; Z68.22 Body mass index [BMI] 22.0-22.9, adult; Z79.84 Long term (current) use of oral hypoglycemic drugs; Z87.891 Personal history of nicotine dependence; Z90.49 Acquired absence of other specified parts of digestive tract; Z91.14 Patient's other noncompliance with medication regimen; I10 Essential (primary) hypertension; G47.00 Insomnia, unspecified; R06.2 Wheezing; T38.0X5A Adverse effect of glucocorticoids and synthetic analogues, initial encounter
CPT/HCPCS: 36600; 71010; 71275; 76000; 80048; 80053; 80202; 81001; 82010; 82550; 82805; 82948; 83605; 83690; 83735; 84484; 85025; 85027; 85610; 85652; 85730; 86403; 86738; 87015; 87040; 87070; 87102; 87116; 87147; 87186; 87205; 87206; 87449; 87641; 88112; 88305; 93005; 93306; 94640; 94664; 96372; 96374; 96375; J0360; J0456; J0690; J1644; J1815; J2250; J2405; J2543; J2920; J3010; J3370; J3475; J3480; J7030; J7040; J7050; J7613; Q9967